=== PATIENT | female | born 1965 | race Two or more races ===

== ENCOUNTER → 2018-05-09 | Day surgery (SDC) | payer BC ==
[2018-05-06 15:08] VITALS: BMI 35.3
--- NOTE | 2018-05-08 19:08 | P.GSHP ---
History of Present Illness H&P Date: 05/09/18 CHIEF COMPLAINT: Cholecystitis HISTORY OF PRESENT ILLNESS: The patient is a 53-year-old female who presents with history of epigastric including right upper quadrant abdominal pain. She underwent diagnostic studies for her gallbladder. Separately her clinical picture was consistent with cholecystitis. Now she presents for surgical intervention. PAST MEDICAL HISTORY: Please see list PAST SURGICAL HISTORY: Please see list MEDICATIONS: Please see list ALLERGIES: Denies. SOCIAL HISTORY: No illicit drug use or recent tobacco use FAMILY HISTORY: Pertinent for gallbladder disease REVIEW OF ORGAN SYSTEMS: CONSTITUTIONAL: No reports of fevers or chills. HEENT: Denies any troubles with the vision or hearing. PHYSICAL EXAM: VITAL SIGNS: Afebrile vital signs stable GENERAL: Well-developed pleasant in no acute distress. HEENT: No scleral icterus. Extraocular movements grossly intact. Moist buccal mucosa. NECK: Supple without lymphadenopathy. CHEST: Unlabored respirations. Equal bilateral excursions. CARDIOVASCULAR: Regular rate regular rhythm rhythm. Distal 2+ pulses. ABDOMEN: Soft, nondistended. Tender along the epigastrium and right upper quadrant. MUSCULOSKELETAL: No clubbing, cyanosis, or edema. NEURO: Cranial nerves II to XII within normal limits. No focal or lateralizing signs. PSYCH: Alert and oriented to person, place and time. SKIN: Well-perfused good skin turgor. ASSESSMENT: 1. Epigastric and right upper quadrant abdominal pain 2. Chronic cholecystitis 3. Symptomatic gallstones. PLAN: 1. Will need a robotic cholecystectomy possible open. Benefits and risks were described. 2. Heparin for DVT prophylaxis 5000 units. 3. Antibiotic prophylaxis. 4. Will need compress and metabolic panel including CBC with history of elevated liver enzymes and cholecystitis Past Medical History Past Medical History: Cancer, GERD/Reflux, Hyperlipidemia, Sleep Apnea/CPAP/ BIPAP, Thyroid Disorder Additional Past Medical History / Comment(s): hx thyroid cancer, diet controlled diabetes, has cpap machine History of Any Multi-Drug Resistant Organisms: None Reported Past Surgical History: Bariatric Surgery, Bowel Resection, Hernia Repair, Hysterectomy Additional Past Surgical History / Comment(s): gastic sleeve, total thyroidectomy,hiatal hernia repair, vaginal repair, rectal vaginal fistula repair, laparoscopic surgery for endometriosis Past Anesthesia/Blood Transfusion Reactions: Postoperative Nausea & Vomiting ( PONV) Smoking Status: Former smoker - Past Family History Mother Family Medical History: No Reported History Medications and Allergies Home Medications Medication Instructions Recorded Confirmed Type Bisacodyl [Dulcolax] 5 mg PO DAILY 05/06/18 05/06/18 History Calcium Carbonate [Calcium] 600 mg PO DAILY 05/06/18 05/06/18 History Cetirizine HCl [Zyrtec] 10 mg PO DAILY 05/06/18 05/06/18 History Cevimeline HCl [Evoxac] 30 mg PO TID 05/06/18 05/06/18 History Cholecalciferol [Vitamin D3] 1,208 unit PO DAILY 05/06/18 05/06/18 History Hormone Replacement 1 dose PO BID 05/06/18 05/06/18 History Magnesium Citrate 300 mg PO DAILY 05/06/18 05/06/18 History Multivitamins, Thera [Multivitamin 1 tab PO DAILY 05/06/18 05/06/18 History (formulary)] Omeprazole [PriLOSEC] 40 mg PO DAILY 05/06/18 05/06/18 History Thyroid,Pork [[place] Thyroid] 60 mg PO SUTUWETHSA 05/06/18 05/06/18 History Thyroid,Pork [[place] Thyroid] 120 mg PO MOFR 05/06/18 05/06/18 History Allergies Allergy/AdvReac Type Severity Reaction Status Date / Time Iodine and Iodide Containing Allergy Rash/Hives Verified 05/06/18 14:50 Produc meperidine [From Demerol] Allergy Rash/Hives Verified 05/06/18 14:50 NSAIDS (Non-Steroidal Allergy Unknown Verified 05/06/18 14:50 Anti-Inflamma Sulfa (Sulfonamide Allergy Rash/Hives Verified 05/06/18 14:50 Antibiotics) surgical glue Allergy blisters Uncoded 05/06/18 14:50 and rash
[~2018-05-09] MED LIST: BUPIVACAIN-EPI 0.25%-1:200,000 30 ML VIAL SQ ONE; DEXAMETHASONE SOD PHOSPHATE 10 MG/ML 1 ML VIAL IV ONE; GLYCOPYRROLATE 0.2 MG/ML 2 ML VIAL ONE; HEPARIN SODIUM,PORCINE 5,000 UNIT/ML 1 ML VIAL SQ ONE; HEPARIN SODIUM,PORCINE 5,000 UNIT/ML 1 ML VIAL SQ STA; HYDROcodone/APAP 5-325MG 1 EACH TAB PO ONE; HYDROmorphone 1 MG/ML 1 ML SYRINGE IVP ONE; HYDROmorphone 2 MG/ML 1 ML SYRINGE IVP ONE; LACTATED RINGERS 1,000 ML IV ONE; LACTATED RINGERS 1,000 ML IV SCH; LIDOCAINE 1% 20 ML VIAL (10MG/ML) FOR IV START INTRADERMA ONE; LIDOCAINE 1% INJ 10MG/ML (20 ML MDV) ONE; MIDAZOLAM 2 MG/2 ML VIAL IV PRN; MIDAZOLAM 2 MG/2 ML VIAL ONE; NEOSTIGMINE 1 MG/ML 10 ML VIAL ONE; ONDANSETRON 4 MG/2 ML VIAL IVP ONE; PROPOFOL 10 MG/ML 20 ML VIAL IV ONE; ROCURONIUM BROMIDE 10 MG/ML 10 ML VIAL IV ONE; SCOPOLAMINE 1.5MG/72HR PATCH TRANSDERM ONE; SUCCINYLCHOLINE CHLORIDE 100 MG/5 ML SYR IV ONE; ceFAZolin IN SWFI 2 GM/20 ML SYRINGE IVP ONE; fentaNYL (PF) 50 MCG/ML 2 ML AMP IV PRN; fentaNYL (PF) 50 MCG/ML 2 ML AMP ONE
[2018-05-09 07:43] LABS: Glucose,Whole Blood 93 mg/dL (75-99)
[2018-05-09 07:51] LABS: Basophils % (A) 1 %; Eosinophils # (A) 0.1 k/uL (0-0.7); Eosinophils % (A) 2 %; HCT 46.6 % (34.0-46.0); HGB 14.7 gm/dL (11.4-16.0); Lymphocytes # (A) 1.1 k/uL (1.0-4.8); Lymphocytes % (A) 27 %; MCH 28.7 pg (25.0-35.0); MCHC 31.7 g/dL (31.0-37.0); MCV 90.6 fL (80.0-100.0); Mean Platelet Volume 6.5; Monocytes # (A) 0.4 k/uL (0-1.0); Monocytes % (A) 10 %; Neutrophils # (A) 2.4 k/uL (1.3-7.7); Neutrophils % (A) 59 %; Platelet Count 226 k/uL (150-450); RBC 5.14 m/uL (3.80-5.40); WBC 4.2 k/uL (3.8-10.6)
[2018-05-09 07:59] LABS: Albumin 4.1 g/dL (3.5-5.0); Anion Gap 9 mmol/L; Calcium 9.4 mg/dL (8.4-10.2); Carbon Dioxide 26 mmol/L (22-30); Chloride 107 mmol/L (98-107); Glucose 96 mg/dL (74-99); Sodium 142 mmol/L (137-145); Total Bilirubin 0.6 mg/dL (0.2-1.3)
[2018-05-09 08:09] LABS: AST 26 U/L (14-36); Blood Urea Nitrogen 15 mg/dL (7-17); Potassium 4.1 mmol/L (3.5-5.1)
[2018-05-09 08:10] LABS: ALT 37 U/L (9-52); Alkaline Phosphatase 73 U/L (38-126)
--- NOTE | 2018-05-09 10:19 | P.OP ---
Date of Procedure: 05/09/18 Description of Procedure: SURGEON: SHASHI HERNANDEZ MD PREOPERATIVE DIAGNOSES: 1. Symptomatic gallstones 2. Chronic cholecystitis 3. Morbid obesity due to excess calories, BMI 35.4 4. Sleep apnea. 5. Non-insulin dependent diabetes 6. Status post gastric sleeve gastrectomy 7. Gastroesophageal reflux disease POSTOPERATIVE DIAGNOSES: 1. Symptomatic gallstones 2. Chronic cholecystitis 3. Morbid obesity due to excess calories, BMI 35.4 4. Sleep apnea. 5. Non-insulin dependent diabetes 6. Status post gastric sleeve gastrectomy 7. Gastroesophageal reflux disease 8. Fatty liver disease OPERATION: Robotic-assisted da Matthew Xi laparoscopic cholecystectomy, multiport ESTIMATED BLOOD LOSS: 5 mL. SPECIMENS REMOVED: Gallbladder. COMPLICATIONS: None. OPERATIVE FINDINGS: 1. Chronic cholecystitis 2. Midline peritoneal adhesions undisturbed INDICATIONS: The patient is a 53-year-old female who presents with cholelcystitis. Surgical intervention with a laparoscopic cholecystectomy was described at length including injury to the biliary tree, bleeding, infection, need for further surgery. Informed consent was obtained. Robotic assisted laparoscopic approach was described. Benefits and risks of the procedure including but not limited to bleeding, infection, injury to the biliary tree was described. Informed consent was obtained. DESCRIPTION OF PROCEDURE: Patient was brought to the operating room, placed in supine position. After general induction, the abdomen had been prepped and draped in standard sterile fashion. The robotic da Matthew XI system was primed. After a timeout protocol was performed, the patient had been prepped and draped in standard sterile fashion. A 5 mm 0 degrees laparoscopic trocar entry was performed along the left upper quadrant. The abdomen insufflated to 15 mmHg pressure which she tolerated well. Diagnostic laparoscopy demonstrated no injury to bowel viscera or mesentery. The liver surface was unremarkable. Next, two 8 mm robotic ports were placed along the right upper abdomen. The 0- degree camera 8-mm port was maintained along the epigastrium. Another 8 mm port was placed along the left upper abdominal wall after exchanging the 5 mm port. Please note that the ports were placed at least 10 to 15 cm away from the target anatomy of the gallbladder. The robot was docked along the left lateral abdomen. The patient was repositioned in reverse Trendelenburg position. Using a grasper for arm 3, a grasper for arm 4, including hook cautery for arm 1 , the robotic system was docked and primed as described. Instruments were interchanged by the assistant strength coach including hook cautery, Bovie cautery and clip appliers. I had sat at the console. Adhesions were identified along the infundibulum of the gallbladder and addressed using hook cautery. The gallbladder fundus was retracted over the dome of the liver. Initial attention was brought to the infundibulum which was gently retracted in the inferior lateral approach. Using a grasper, the cystic duct including the cystic artery was carefully skeletonized. Large PLASTIC clips were used throughout the entire case. Using a clip hand outside cutter 2 clips were placed proximally, and 1 clip was placed distally along the cystic duct and then cauterized with the cautery. Again care was taken to avoid any injury to the biliary tree as the common bile duct was clearly visualized during this portion of dissection. Next, the cystic artery was similarly clipped and cauterized. Electro-Bovie cautery was used to remove the gallbladder from the hepatic fossa. Hemostasis was checked and found to be adequate. The robot was undocked. I re-scrubbed into the case. Using a 10 mm Endo Catch bag via the left upper quadrant incision, the specimen was removed from the abdominal cavity. All pneumoperitoneum instruments were evacuated from the abdominal cavity. The incisions were reapproximated using 4-0 Monocryl in an interrupted subcuticular fashion. Fascial defects were less than 8 mm in size. Please note along the trocar sites, local anesthetic was placed as a field block prior to insertion of all instruments. Liquid glue was applied to the skin. At the end of the procedure needle, sponge, and instrument count had been verified correct by the surgical scheduler. The patient was transferred to postanesthesia care unit in stable condition. Intraoperative films were shared with the patient's family who were very pleased with the level of care. Console time 17 minutes Plan - Discharge Summary New Discharge Prescriptions: No Action Cholecalciferol [Vitamin D3] 1,208 unit PO DAILY Magnesium Citrate 300 mg PO DAILY Calcium Carbonate [Calcium] 600 mg PO DAILY Multivitamins, Thera [Multivitamin (formulary)] 1 tab PO DAILY Thyroid,Pork [[place] Thyroid] 60 mg PO SUTUWETHSA Omeprazole [PriLOSEC] 40 mg PO DAILY Cetirizine HCl [Zyrtec] 10 mg PO DAILY Bisacodyl [Dulcolax] 5 mg PO DAILY Thyroid,Pork [[place] Thyroid] 120 mg PO MOFR Cevimeline HCl [Evoxac] 30 mg PO TID Hormone Replacement 1 dose PO BID Discharge Medication List Bisacodyl [Dulcolax] 5 mg PO DAILY 05/06/18 [History] Calcium Carbonate [Calcium] 600 mg PO DAILY 05/06/18 [History] Cetirizine HCl [Zyrtec] 10 mg PO DAILY 05/06/18 [History] Cevimeline HCl [Evoxac] 30 mg PO TID 05/06/18 [History] Cholecalciferol [Vitamin D3] 1,208 unit PO DAILY 05/06/18 [History] Hormone Replacement 1 dose PO BID 05/06/18 [History] Magnesium Citrate 300 mg PO DAILY 05/06/18 [History] Multivitamins, Thera [Multivitamin (formulary)] 1 tab PO DAILY 05/06/18 [History ] Omeprazole [PriLOSEC] 40 mg PO DAILY 05/06/18 [History] Thyroid,Pork [[place] Thyroid] 60 mg PO SUTUWETHSA 05/06/18 [History] Thyroid,Pork [[place] Thyroid] 120 mg PO MOFR 05/06/18 [History]
[2018-05-09 10:30] VITALS: TEMP 98.4
[2018-05-09 10:32] VITALS: RESP 16
[2018-05-09 12:10] VITALS: BP 134/72; PULSE 62
== END | disposition home or self-care (01) ==
LOC: OR 07:02 → EDSEX 13:30
PROVIDERS: ATTEND Surgery Plastic and Reconstructive Surgery
DX: K81.1 Chronic cholecystitis (principal); K66.0 Peritoneal adhesions (postprocedural) (postinfection); K21.9 Gastro-esophageal reflux disease without esophagitis; E78.5 Hyperlipidemia, unspecified; G47.33 Obstructive sleep apnea (adult) (pediatric); Z99.89 Dependence on other enabling machines and devices; K76.0 Fatty (change of) liver, not elsewhere classified; E07.9 Disorder of thyroid, unspecified; E11.9 Type 2 diabetes mellitus without complications; E66.01 Morbid (severe) obesity due to excess calories; Z68.35 Body mass index [BMI] 35.0-35.9, adult; Z98.84 Bariatric surgery status; E89.0 Postprocedural hypothyroidism; Z87.891 Personal history of nicotine dependence; Z79.890 Hormone replacement therapy; Z79.899 Other long term (current) drug therapy; Z88.6 Allergy status to analgesic agent; Z88.5 Allergy status to narcotic agent; Z88.2 Allergy status to sulfonamides; Z91.048 Other nonmedicinal substance allergy status; Z91.09 Other allergy status, other than to drugs and biological substances
CPT/HCPCS: 47562; S2900; 80053; 85025; 88304

== ENCOUNTER → 2020-03-17 | Outpatient (CLI) | payer BC ==
[2020-03-17 08:49] LABS: HGB 13.8 gm/dL (11.4-16.0); MCH 30.2 pg (25.0-35.0); MCHC 32.1 g/dL (31.0-37.0); MCV 94.1 fL (80.0-100.0); Mean Platelet Volume 6.5; Platelet Count 269 k/uL (150-450); RBC 4.57 m/uL (3.80-5.40); RDW 13.3 % (11.5-15.5); WBC 5.1 k/uL (3.8-10.6)
[2020-03-17 15:13] LABS: Hemoglobin A1C 5.8 % (4.0-6.0)
[2020-03-17 16:56] LABS: % Iron Saturation 19.53 (12.00-45.00); Albumin 4.2 g/dL (3.80-4.90); Albumin/Globulin Ratio 1.91 (1.60-3.17); Anion Gap 5.8 mmol/L (4.00-12.00); BUN/Creat Ratio 23.33 Ratio (12.00-20.00); Calcium 9.1 mg/dL (8.7-10.3); Carbon Dioxide 25.2 mmol/L (21.6-31.8); Chol/HDL Ratio 3.25; Globulin 2.2 g/dL (1.6-3.3); LDL Cholesterol,Calculated 122.8 mg/dL (0.0-131.0); Non-African American GFR(CKD) 72.5 (60.0-200.0); Phosphorus 3.1 mg/dL (2.4-5.1); Potassium 3.7 mmol/L (3.5-5.5); Total Bilirubin 0.4 mg/dL (0.3-1.2); Total Protein 6.4 g/dL (6.2-8.2); VLDL Calculation 21.2 mg/dL (5.00-40.00)
[2020-03-17 17:03] LABS: Ferritin 21.5 ng/mL (10.0-291.0)
[2020-03-17 17:15] LABS: Folate, Serum 19.5 ng/mL
[2020-03-17 17:37] LABS: INR 0.93 (0.90-1.11); Partial Thromboplastin Time 27.6 sec (24.7-29.9)
[2020-03-18 13:24] LABS: Zinc, Serum 88 ug/dL (60-130)
[2020-03-19 06:52] LABS: Vitamin A 76 ug/dL (38-106)
[2020-03-19 07:18] LABS: Vit B1(Thiamine) 78 ug/L (38-122)
[2020-03-21 04:12] LABS: Selenium 187 mcg/L (63-160)
== END | disposition home or self-care (01) ==
LOC: LABWHC1 07:52
PROVIDERS: ATTEND Surgery Plastic and Reconstructive Surgery
DX: E21.1 Secondary hyperparathyroidism, not elsewhere classified (principal); D50.8 Other iron deficiency anemias; K90.89 Other intestinal malabsorption; E55.9 Vitamin D deficiency, unspecified; K74.1 Hepatic sclerosis; N19 Unspecified kidney failure; K50.90 Crohn's disease, unspecified, without complications
CPT/HCPCS: 36415; 80053; 80061; 82306; 82525; 82607; 82728; 82746; 83036; 83540; 83550; 83735; 83970; 84100; 84134; 84255; 84425; 84443; 84590; 84630; 85027; 85610; 85730

== ENCOUNTER → 2020-03-18 | Outpatient (CLI) | payer BC ==
--- NOTE | 2020-03-18 08:46 | FL ---
EXAMINATION TYPE: FL barium swallow DATE OF EXAM: 03/18/2020 LIMITED UGI: CLINICAL HISTORY: History of gastric sleeve surgery 2 years ago with increasing epigastric pain and burning sensation for 3 months. TECHNIQUE: Limited esophagram is performed utilizing 20 ounces of thin liquid barium. A total of 0.2 5 minutes of fluoroscopic time was utilized during procedure. COMPARISON: None. FINDINGS: The patient swallowed contrast without difficulty or delay. Esophageal peristalsis and mo tility are within normal limits. There is good flow of contrast along the diaphragmatic hiatus into proximal stomach and subsequent flow into gastric sleeve. No fixed recurrent hernia. Small sliding-ty pe hiatal hernia is present noted towards end of study. [id number] gastroesophageal reflux into the distal one third of esophagus noted during performance of study. Gastric sleeve intact. Contrast flows through distal anastomosis. IMPRESSION: Small sliding-type hiatal hernia. No fixed hernia. Mild to moderate distal gastroesophage al reflux noted. Intact gastric sleeve.
== END | disposition home or self-care (01) ==
LOC: RADFLMAIN 07:31
PROVIDERS: ATTEND Surgery Plastic and Reconstructive Surgery
DX: K44.9 Diaphragmatic hernia without obstruction or gangrene (principal); K21.9 Gastro-esophageal reflux disease without esophagitis
CPT/HCPCS: 74220

== ENCOUNTER 2020-03-23 14:34 | Emergency (ER) | payer BC ==
--- NOTE | 2020-03-23 15:45 | ED ---
General Adult HPI - General Chief complaint: Shortness of Breath Stated complaint: Aspirated last night Time Seen by Provider: 03/23/20 15:08 Source: patient Mode of arrival: ambulatory Limitations: no limitations - History of Present Illness Initial comments: Patient is a 55-year-old female with history of gastric sleeve, GERD, presenting to the emergency Department with complaints of some mild shortness of breath. Patient states she has been dealing with GERD for the past couple weeks. She had a follow-up with her surgeon, Dr. Umana, for a two-year follow-up. She did start a shunt on omeprazole, which she has been taking for one week now. Patient states last night she was feeling a little bit of indigestion, burning. She states she laid down, per her CPAP on and was almost asleep when she had a vomiting episode. Patient states she was not able to get her CPAP machine off fast enough and feared she may have aspirated some of the vomit. She states throughout today she's had a mild cough, tickle in her throat. She denies any chest pain, she states she still feels some burning in her epigastric area which is normal for her. She feels like she is mildly short of breath when she is walking around. She denies ever having blood clot. She has no further complaints at this time. - Related Data Home Medications Medication Instructions Recorded Confirmed Calcium Carbonate [Calcium] 600 mg PO DAILY 05/06/18 05/09/18 Cetirizine HCl [Zyrtec] 10 mg PO DAILY 05/06/18 05/09/18 Cevimeline HCl [Evoxac] 30 mg PO TID 05/06/18 05/09/18 Cholecalciferol [Vitamin D3] 1,208 unit PO DAILY 05/06/18 05/09/18 Hormone Replacement 1 dose PO BID 05/06/18 05/09/18 Magnesium Citrate 300 mg PO DAILY 05/06/18 05/09/18 Multivitamins, Thera [Multivitamin 1 tab PO DAILY 05/06/18 05/09/18 (formulary)] Omeprazole [PriLOSEC] 40 mg PO DAILY 05/06/18 05/09/18 Thyroid,Pork [[place] Thyroid] 60 mg PO SUTUWETHSA 05/06/18 05/09/18 Thyroid,Pork [[place] Thyroid] 120 mg PO MOFR 05/06/18 05/09/18 bisacodyL [Dulcolax] 5 mg PO DAILY 05/06/18 05/09/18 Previous Rx's Medication Instructions Recorded HYDROcodone/APAP 5-325MG [[place] 1 tab PO Q6HR PRN 3 Days #12 tab 05/09/18 5-325] Allergies Allergy/AdvReac Type Severity Reaction Status Date / Time Iodine and Iodide Containing Allergy Rash/Hives Verified 03/23/20 15:06 Produc meperidine [From Demerol] Allergy Rash/Hives Verified 03/23/20 15:06 NSAIDS (Non-Steroidal Allergy Unknown Verified 03/23/20 15:06 Anti-Inflamma Sulfa (Sulfonamide Allergy Rash/Hives Verified 03/23/20 15:06 Antibiotics) surgical glue Allergy blisters Uncoded 03/23/20 15:06 and rash Review of Systems ROS Statement: Those systems with pertinent positive or pertinent negative responses have been documented in the HPI. ROS Other: All systems not noted in ROS Statement are negative. Past Medical History Past Medical History: Cancer, GERD/Reflux, Hyperlipidemia, Sleep Apnea/CPAP/BIPAP, Thyroid Disorder Additional Past Medical History / Comment(s): hx thyroid cancer, diet controlled diabetes, has cpap machine History of Any Multi-Drug Resistant Organisms: None Reported Past Surgical History: Bariatric Surgery, Bowel Resection, Hernia Repair, Hysterectomy Additional Past Surgical History / Comment(s): gastic sleeve, total thyroidectomy,hiatal hernia repair, vaginal repair, rectal vaginal fistula repair, laparoscopic surgery for endometriosis Past Anesthesia/Blood Transfusion Reactions: Postoperative Nausea & Vomiting (PONV) Past Psychological History: No Psychological Hx Reported Smoking Status: Never smoker Past Alcohol Use History: Rare Past Drug Use History: None Reported - Past Family History Mother Family Medical History: No Reported History General Exam - General Exam Comments Initial Comments: GENERAL: Patient is well-developed and well-nourished. Patient is nontoxic and in no acute distress. HEAD: Atraumatic, normocephalic. EYES: Pupils equal round and reactive to light, extraocular movements intact, sclera anicteric, conjunctiva are normal. Eyelids were unremarkable. ENT: TMs normal, nares patent, oropharynx clear without exudates. Moist mucous me mbranes. NECK: Normal range of motion, supple without lymphadenopathy or JVD. LUNGS: Unlabored respirations. Breath sounds clear to auscultation bilaterally and equal. No wheezes rales or rhonchi. HEART: Regular rate and rhythm without murmurs, rubs or gallops. ABDOMEN: Soft, nontender, normoactive bowel sounds. No guarding, no rebound. No masses appreciated. : Deferred MUSCULOSKELETAL: Normal extremities with adequate strength and normal range of motion, no pitting or edema. No clubbing or cyanosis. NEUROLOGICAL: Patient is alert and oriented x 3. Motor and sensory are also intact. Cranial nerves II through XII grossly intact. Normal speech, normal gait. Symmetrical smile. PSYCH: Normal mood, normal affect. SKIN: Warm, Dry, normal turgor, no rashes or lesions noted. Limitations: no limitations Course Vital Signs 03/23/20 03/23/20 15:02 16:20 Temperature 98.3 F 98.6 F Pulse Rate 106 H 85 Respiratory 22 18 Rate Blood Pressure 127/84 124/82 O2 Sat by Pulse 100 98 Oximetry Medical Decision Making - Medical Decision Making Patient is a 55-year-old female here with concerns of aspiration after she had a vomiting episode last night with her CPAP machine still on. Her vitals are stable here. Chest x-ray reveals no acute process here. The rest of exam is unremarkable. I discussed the patient to follow up with her PCP. She will continue with her omeprazole as needed for the GERD. She is in agreement with t his plan of care. Case discussed with Dr. Alonso. Disposition Clinical Impression: Cough, GERD (gastroesophageal reflux disease) Disposition: HOME SELF-CARE Condition: Stable Instructions (If sedation given, give patient instructions): Gastroesophageal Reflux Disease (ED) Additional Instructions: Please return to the Emergency Department if symptoms worsen or any other concerns. Follow-up with PCP. Is patient prescribed a controlled substance at d/c from ED?: No Referrals: Chantelle Navarrete DO [Primary Care Provider] - 1-2 days
--- NOTE | 2020-03-23 15:49 | XR ---
EXAMINATION TYPE: XR chest 2V DATE OF EXAM: 03/23/2020 CLINICAL HISTORY: Cough. Concern for aspiration. TECHNIQUE: Frontal and lateral views of the chest are obtained. COMPARISON: None FINDINGS: The cardiomediastinal silhouette is within normal limits for size. Pulmonary vasculature i s normal. There is no focal air space opacity, pleural effusion, or pneumothorax seen. The osseous st ructures are intact. IMPRESSION: No acute cardiopulmonary process.
[2020-03-23 16:21] VITALS: BP 124/82; PULSE 85; RESP 18; TEMP 98.6
== END 2020-03-23 16:24 | disposition home or self-care (01) ==
LOC: EC 14:34
DX: K21.9 Gastro-esophageal reflux disease without esophagitis (principal); R05 Cough; R06.02 Shortness of breath; G47.30 Sleep apnea, unspecified; E11.9 Type 2 diabetes mellitus without complications; E89.0 Postprocedural hypothyroidism; Z79.899 Other long term (current) drug therapy; Z79.890 Hormone replacement therapy; Z88.2 Allergy status to sulfonamides; Z88.6 Allergy status to analgesic agent; Z91.041 Radiographic dye allergy status; Z91.048 Other nonmedicinal substance allergy status; Z85.850 Personal history of malignant neoplasm of thyroid
CPT/HCPCS: 71046; 99284

== ENCOUNTER 2020-10-16 17:22 | Emergency (ER) | payer BC ==
--- NOTE | 2020-10-16 17:49 | ED ---
General Adult HPI - General Chief complaint: Arrhythmia/Palpitations Stated complaint: palpitations Time Seen by Provider: 10/16/20 17:32 Source: patient Mode of arrival: ambulatory Limitations: no limitations - History of Present Illness Initial comments: Patient presents to the ED with her for evaluation. Patient states that she has been having episodes of rapid heart palpitations with associated dyspnea and "GERD" for the past 6 months or so. Patient states that her episodes have become more frequent recently. Patient states that she last had symptoms about 6 hours ago. Patient denies having any symptoms at all currently. Patient d escribes her GERD as a "fullness" in her epigastrium, and she states that she takes omeprazole for management of her GERD. Patient denies trauma or injury, fever or chills, headache, focal numbness/weakness/neuro deficit, neck/arm/jaw/back pain, chest pain, pleuritic pain, cough or cold symptoms, d izziness or syncope, abdominal pain, nausea/vomiting/diarrhea, bloody or melanotic stool, dysuria or urinary symptoms, leg or calf swelling or pain, or any other symptoms or complaints. Patient denies alcohol or drug abuse. Patient denies any recent changes in her diet. Patient states that she did have some of her hormone doses (estrogen and testosterone) changed yesterday. - Related Data Home Medications Medication Instructions Recorded Confirmed Cetirizine HCl [Zyrtec] 10 mg PO DAILY 05/06/18 10/16/20 Cevimeline HCl [Evoxac] 30 mg PO TID 05/06/18 10/16/20 Cholecalciferol [Vitamin D3] 1,000 unit PO DAILY 05/06/18 10/16/20 Multivitamins, Thera [Multivitamin 1 tab PO DAILY 05/06/18 10/16/20 (formulary)] Cyanocobalamin (Vitamin B-12) 5,000 mcg PO DAILY 04/07/20 10/16/20 [Vitamin B-12] Estradiol [Yuvafem] 10 mg VAGINAL MOWEFR 04/07/20 10/16/20 Lisdexamfetamine Dimesylate 70 mg PO DAILY 04/07/20 10/16/20 [Vyvanse] Black Elderberry 2,000mg 2,000 mg PO DAILY 10/16/20 10/16/20 Calcium/Magnesium/Vit D3 Complex 1 cap PO DAILY 10/16/20 10/16/20 Chromium Picolinate 200 mcg PO DAILY 10/16/20 10/16/20 Cranberry W/Vit C 1 tab PO DAILY 10/16/20 10/16/20 Estrogen/Testosterone Cream 1 dose TOPICAL DIRECTED 10/16/20 10/16/20 Inflamed (Curcumin Blend) 1 cap PO DAILY 10/16/20 10/16/20 L.acidoph,Paracasei, B.lactis 1 cap PO DAILY 10/16/20 10/16/20 [Probiotic] Magnesium Citrate 225mg/5ml 225 mg PO DAILY 10/16/20 10/16/20 Natural Progester/Dhea 125/15 1 cap PO DAILY 10/16/20 10/16/20 Psyllium Husk [Metamucil] 0.4 gm PO DAILY 10/16/20 10/16/20 Pure [place] Hp-375 Epa/125 Dha 1 cap PO DAILY 10/16/20 10/16/20 Thyroid,Pork [Turin Thyroid] 90 mg PO DAILY 10/16/20 10/16/20 Topiramate [Topamax] 50 mg PO BID 10/16/20 10/16/20 Vitamin A 3,000 Units 3,000 units PO DAILY 10/16/20 10/16/20 Zinc Citrate 30mg 30 mg PO DAILY 10/16/20 10/16/20 bisacodyL [Dulcolax] 5 mg PO DAILY 10/16/20 10/16/20 Previous Rx's Medication Instructions Recorded Omeprazole [PriLOSEC] 40 mg PO DAILY #90 cap 03/31/20 Allergies Allergy/AdvReac Type Severity Reaction Status Date / Time Iodine and Iodide Containing Allergy Rash/Hives Verified 10/16/20 19:05 Produc meperidine [From Demerol] Allergy Rash/Hives Verified 10/16/20 19:05 NSAIDS (Non-Steroidal Allergy Unknown Verified 10/16/20 19:05 Anti-Inflamma Sulfa (Sulfonamide Allergy Rash/Hives Verified 10/16/20 19:05 Antibiotics) surgical glue Allergy blisters Uncoded 10/16/20 17:29 and rash Review of Systems ROS Statement: Those systems with pertinent positive or pertinent negative responses have been documented in the HPI. ROS Other: All systems not noted in ROS Statement are negative. Past Medical History Past Medical History: Cancer, GERD/Reflux, Hyperlipidemia, Sleep Apnea/CPAP/BIPAP, Thyroid Disorder Additional Past Medical History / Comment(s): hx thyroid cancer, diet controlled diabetes, has cpap machine History of Any Multi-Drug Resistant Organisms: None Reported Past Surgical History: Bariatric Surgery, Bowel Resection, Hernia Repair, Hysterectomy Additional Past Surgical History / Comment(s): gastic sleeve, total thyroidectomy,hiatal hernia repair, vaginal repair, rectal vaginal fistula repair, laparoscopic surgery for endometriosis Past Anesthesia/Blood Transfusion Reactions: Postoperative Nausea & Vomiting (PONV) Past Psychological History: No Psychological Hx Reported Smoking Status: Never smoker Past Alcohol Use History: Rare Past Drug Use History: None Reported - Past Family History Mother Family Medical History: No Reported History General Exam Limitations: no limitations General appearance: alert, in no apparent distress Head exam: Present: atraumatic, normocephalic Eye exam: Present: normal appearance, PERRL, EOMI ENT exam: Present: mucous membranes moist Neck exam: Present: other (Trachea is in midline) Respiratory exam: Present: normal lung sounds bilaterally. Absent: respiratory distress, wheezes, rales, rhonchi, stridor Cardiovascular Exam: Present: regular rate, normal rhythm, normal heart sounds, other (Normal radial pulses bilaterally) GI/Abdominal exam: Present: soft. Absent: distended, tenderness, guarding Extremities exam: Present: other (Negative Homans sign bilaterally). Absent: tenderness, pedal edema, calf tenderness Neurological exam: Present: alert, oriented X3. Absent: motor sensory deficit Psychiatric exam: Present: normal affect, normal mood Skin exam: Present: warm, dry, intact, normal color Course Vital Signs 10/16/20 10/16/20 10/16/20 17:27 17:50 18:00 Temperature 98.2 F Pulse Rate 101 H 79 Pulse Rate [ 101 H [employer] ] Respiratory 16 14 Rate Blood Pressure 155/90 153/92 O2 Sat by Pulse 100 100 Oximetry 10/16/20 18:30 Temperature Pulse Rate 79 Pulse Rate [ [employer] ] Respiratory 19 Rate Blood Pressure 125/77 O2 Sat by Pulse 100 Oximetry - Reevaluation(s) Reevaluation #1: 10/16/20 19:36 Patient continues to deny having any palpitations or symptoms while in the ED. Patient remains alert and breathing comfortably with a normal room air oxygen saturation. Patient remains in a normal sinus rhythm on the pvc monitor. Patient and are aware the patient's test results, and patient feels comfortable going home with her at this time. Patient was counseled about palpitations, and she was clearly explained return and follow-up instructions. Patient was instructed to follow up closely with her primary care provider. EKG Findings - EKG Comments: EKG Findings:: Normal sinus rhythm, ventricular rate of 95 bpm, no ectopy, normal DE and QRS intervals, normal QT interval, normal axis, no ST or T-wave abnormality Medical Decision Making - Medical Decision Making Patient's ED workup (EKG, chest x-ray and labs) is fairly unremarkable. Patient has been in normal sinus rhythm on the pvc monitor while in the ED. Patient's allegedly and troponin are within normal limits. Patient reports having symptoms intermittently for the past 6 months or so. I do not suspect an emergent medical condition. Patient was instructed to, and agrees to, follow up closely with her primary care provider for further evaluation. Will discharge patient home with her at this time. - Lab Data Result diagrams: 10/16/20 18:07 10/16/20 18:07 Lab Results 10/16/20 10/16/20 10/16/20 Range/Units 18:07 18:07 18:07 WBC 6.1 (3.8-10.6) k/uL RBC 4.75 (3.80-5.40) m/uL Hgb 14.0 (11.4-16.0) gm/dL Hct 42.5 (34.0-46.0) % MCV 89.5 (80.0-100.0) fL MCH 29.6 (25.0-35.0) pg MCHC 33.1 (31.0-37.0) g/dL RDW 13.4 (11.5-15.5) % Plt Count 283 (150-450) k/uL MPV 6.4 Neutrophils % 54 % Lymphocytes % 35 % Monocytes % 7 % Eosinophils % 1 % Basophils % 1 % Neutrophils # 3.3 (1.3-7.7) k/uL Lymphocytes # 2.2 (1.0-4.8) k/uL Monocytes # 0.4 (0-1.0) k/uL Eosinophils # 0.1 (0-0.7) k/uL Basophils # 0.1 (0-0.2) k/uL PT 10.0 (9.0-12.0) sec INR 0.9 (<1.2) APTT 23.3 (22.0-30.0) sec Sodium 140 (137-145) mmol/L Potassium 4.1 (3.5-5.1) mmol/L Chloride 107 (98-107) mmol/L Carbon Dioxide 22 (22-30) mmol/L Anion Gap 11 mmol/L BUN 18 H (7-17) mg/dL Creatinine 0.95 (0.52-1.04) mg/dL Est GFR (CKD-EPI)AfAm 79 (>60 ml/min/1.73 sqM) Est GFR (CKD-EPI)NonAf 69 (>60 ml/min/1.73 sqM) Glucose 86 (74-99) mg/dL Calcium 10.0 (8.4-10.2) mg/dL Magnesium 2.0 (1.6-2.3) mg/dL Total Bilirubin 0.4 (0.2-1.3) mg/dL AST 27 (14-36) U/L ALT 21 (4-34) U/L Alkaline Phosphatase 105 (38-126) U/L Troponin I (0.000-0.034) ng/mL NT-Pro-B Natriuret Pep pg/mL Total Protein 7.5 (6.3-8.2) g/dL Albumin 4.4 (3.5-5.0) g/dL Lipase 473 H (23-300) U/L TSH 0.016 L (0.465-4.680) mIU/L Free T4 (0.78-2.19) ng/dL Free T3 pg/mL (2.8-5.3) pg/ml Urine Color Urine Appearance (Clear) Urine pH (5.0-8.0) Ur Specific [place] (1.001-1.035) Urine Protein (Negative) Urine Glucose (UA) (Negative) Urine Ketones (Negative) Urine Blood (Negative) Urine Nitrite (Negative) Urine Bilirubin (Negative) Urine Urobilinogen (<2.0) mg/dL Ur Leukocyte Esterase (Negative) Urine RBC (0-5) /hpf Urine WBC (0-5) /hpf Ur Squamous Epith Cells (0-4) /hpf Urine Bacteria (None) /hpf Urine Mucus (None) /hpf Urine Opiates Screen (NotDetected) Ur Oxycodone Screen (NotDetected) Urine Methadone Screen (NotDetected) Ur Propoxyphene Screen (NotDetected) Ur Barbiturates Screen (NotDetected) U Tricyclic Antidepress (NotDetected) Ur Phencyclidine Scrn (NotDetected) Ur Amphetamines Screen (NotDetected) U Methamphetamines Scrn (NotDetected) U Benzodiazepines Scrn (NotDetected) Urine Cocaine Screen (NotDetected) U Marijuana (THC) Screen (NotDetected) 10/16/20 10/16/20 10/16/20 Range/Units 18:07 18:07 18:07 WBC (3.8-10.6) k/uL RBC (3.80-5.40) m/uL Hgb (11.4-16.0) gm/dL Hct (34.0-46.0) % MCV (80.0-100.0) fL MCH (25.0-35.0) pg MCHC (31.0-37.0) g/dL RDW (11.5-15.5) % Plt Count (150-450) k/uL MPV Neutrophils % % Lymphocytes % % Monocytes % % Eosinophils % % Basophils % % Neutrophils # (1.3-7.7) k/uL Lymphocytes # (1.0-4.8) k/uL Monocytes # (0-1.0) k/uL Eosinophils # (0-0.7) k/uL Basophils # (0-0.2) k/uL PT (9.0-12.0) sec INR (<1.2) APTT (22.0-30.0) sec Sodium (137-145) mmol/L Potassium (3.5-5.1) mmol/L Chloride (98-107) mmol/L Carbon Dioxide (22-30) mmol/L Anion Gap mmol/L BUN (7-17) mg/dL Creatinine (0.52-1.04) mg/dL Est GFR (CKD-EPI)AfAm (>60 ml/min/1.73 sqM) Est GFR (CKD-EPI)NonAf (>60 ml/min/1.73 sqM) Glucose (74-99) mg/dL Calcium (8.4-10.2) mg/dL Magnesium (1.6-2.3) mg/dL Total Bilirubin (0.2-1.3) mg/dL AST (14-36) U/L ALT (4-34) U/L Alkaline Phosphatase (38-126) U/L Troponin I <0.012 (0.000-0.034) ng/mL NT-Pro-B Natriuret Pep 20 pg/mL Total Protein (6.3-8.2) g/dL Albumin (3.5-5.0) g/dL Lipase (23-300) U/L TSH (0.465-4.680) mIU/L Free T4 0.73 L (0.78-2.19) ng/dL Free T3 pg/mL 4.3 (2.8-5.3) pg/ml Urine Color Urine Appearance (Clear) Urine pH (5.0-8.0) Ur Specific [place] (1.001-1.035) Urine Protein (Negative) Urine Glucose (UA) (Negative) Urine Ketones (Negative) Urine Blood (Negative) Urine Nitrite (Negative) Urine Bilirubin (Negative) Urine Urobilinogen (<2.0) mg/dL Ur Leukocyte Esterase (Negative) Urine RBC (0-5) /hpf Urine WBC (0-5) /hpf Ur Squamous Epith Cells (0-4) /hpf Urine Bacteria (None) /hpf Urine Mucus (None) /hpf Urine Opiates Screen (NotDetected) Ur Oxycodone Screen (NotDetected) Urine Methadone Screen (NotDetected) Ur Propoxyphene Screen (NotDetected) Ur Barbiturates Screen (NotDetected) U Tricyclic Antidepress (NotDetected) Ur Phencyclidine Scrn (NotDetected) Ur Amphetamines Screen (NotDetected) U Methamphetamines Scrn (NotDetected) U Benzodiazepines Scrn (NotDetected) Urine Cocaine Screen (NotDetected) U Marijuana (THC) Screen (NotDetected) 10/16/20 Range/Units 18:57 WBC (3.8-10.6) k/uL RBC (3.80-5.40) m/uL Hgb (11.4-16.0) gm/dL Hct (34.0-46.0) % MCV (80.0-100.0) fL MCH (25.0-35.0) pg MCHC (31.0-37.0) g/dL RDW (11.5-15.5) % Plt Count (150-450) k/uL MPV Neutrophils % % Lymphocytes % % Monocytes % % Eosinophils % % Basophils % % Neutrophils # (1.3-7.7) k/uL Lymphocytes # (1.0-4.8) k/uL Monocytes # (0-1.0) k/uL Eosinophils # (0-0.7) k/uL Basophils # (0-0.2) k/uL PT (9.0-12.0) sec INR (<1.2) APTT (22.0-30.0) sec Sodium (137-145) mmol/L Potassium (3.5-5.1) mmol/L Chloride (98-107) mmol/L Carbon Dioxide (22-30) mmol/L Anion Gap mmol/L BUN (7-17) mg/dL Creatinine (0.52-1.04) mg/dL Est GFR (CKD-EPI)AfAm (>60 ml/min/1.73 sqM) Est GFR (CKD-EPI)NonAf (>60 ml/min/1.73 sqM) Glucose (74-99) mg/dL Calcium (8.4-10.2) mg/dL Magnesium (1.6-2.3) mg/dL Total Bilirubin (0.2-1.3) mg/dL AST (14-36) U/L ALT (4-34) U/L Alkaline Phosphatase (38-126) U/L Troponin I (0.000-0.034) ng/mL NT-Pro-B Natriuret Pep pg/mL Total Protein (6.3-8.2) g/dL Albumin (3.5-5.0) g/dL Lipase (23-300) U/L TSH (0.465-4.680) mIU/L Free T4 (0.78-2.19) ng/dL Free T3 pg/mL (2.8-5.3) pg/ml Urine Color Light Yellow Urine Appearance Cloudy H (Clear) Urine pH 6.0 (5.0-8.0) Ur Specific [place] 1.011 (1.001-1.035) Urine Protein Negative (Negative) Urine Glucose (UA) Negative (Negative) Urine Ketones Negative (Negative) Urine Blood Negative (Negative) Urine Nitrite Negative (Negative) Urine Bilirubin Negative (Negative) Urine Urobilinogen <2.0 (<2.0) mg/dL Ur Leukocyte Esterase Negative (Negative) Urine RBC 1 (0-5) /hpf Urine WBC 4 (0-5) /hpf Ur Squamous Epith Cells 8 H (0-4) /hpf Urine Bacteria Many H (None) /hpf Urine Mucus Rare H (None) /hpf Urine Opiates Screen Not Detected (NotDetected) Ur Oxycodone Screen Not Detected (NotDetected) Urine Methadone Screen Not Detected (NotDetected) Ur Propoxyphene Screen Not Detected (NotDetected) Ur Barbiturates Screen Not Detected (NotDetected) U Tricyclic Antidepress Not Detected (NotDetected) Ur Phencyclidine Scrn Not Detected (NotDetected) Ur Amphetamines Screen Detected H (NotDetected) U Methamphetamines Scrn Not Detected (NotDetected) U Benzodiazepines Scrn Not Detected (NotDetected) Urine Cocaine Screen Not Detected (NotDetected) U Marijuana (THC) Screen Not Detected (NotDetected) - Radiology Data Radiology results: image reviewed (Chest x-ray is negative) Disposition Clinical Impression: Palpitations Disposition: HOME SELF-CARE Condition: Stable Instructions (If sedation given, give patient instructions): Heart Palpitations (ED) Additional Instructions: Return to the ER immediately should you develop new or worsening pain, increased or persistent shortness of breath, chest pain, feeling dizzy or faint, vomiting, a fever, or new or worsening symptoms. Follow up closely with your primary care provider. Is patient prescribed a controlled substance at d/c from ED?: No Referrals: Chantelle Navarrete DO [Primary Care Provider] - 1-2 days Time of Disposition: 19:38
[2020-10-16] MEDS ORDERED: SODIUM CHLORIDE 0.9% 500 ML 500 ML IV STA (17:56)
[2020-10-16 18:14] LABS: Basophils # (A) 0.1 k/uL (0-0.2); Basophils % (A) 1 %; Eosinophils # (A) 0.1 k/uL (0-0.7); Eosinophils % (A) 1 %; HCT 42.5 % (34.0-46.0); Lymphocytes # (A) 2.2 k/uL (1.0-4.8); Lymphocytes % (A) 35 %; MCH 29.6 pg (25.0-35.0); MCHC 33.1 g/dL (31.0-37.0); MCV 89.5 fL (80.0-100.0); Mean Platelet Volume 6.4; Monocytes # (A) 0.4 k/uL (0-1.0); Monocytes % (A) 7 %; Neutrophils # (A) 3.3 k/uL (1.3-7.7); Neutrophils % (A) 54 %; Platelet Count 283 k/uL (150-450); RBC 4.75 m/uL (3.80-5.40); RDW 13.4 % (11.5-15.5); WBC 6.1 k/uL (3.8-10.6)
[2020-10-16 18:25] LABS: Albumin 4.4 g/dL (3.5-5.0); Potassium 4.1 mmol/L (3.5-5.1); Total Bilirubin 0.4 mg/dL (0.2-1.3); Total Protein 7.5 g/dL (6.3-8.2)
[2020-10-16 18:31] LABS: INR 0.9 (<1.2); Partial Thromboplastin Time 23.3 sec (22.0-30.0)
--- NOTE | 2020-10-16 18:40 | XR ---
EXAMINATION TYPE: XR chest 2V DATE OF EXAM: 10/16/2020 COMPARISON: 03/23/2020 HISTORY: Dysrhythmia. Chest pain TECHNIQUE: FINDINGS: Heart and mediastinum are normal. Lungs are clear. Diaphragm is normal. There are chest isamar ds. Bony thorax is intact. IMPRESSION: Normal chest. No change.
[2020-10-16 19:12] LABS: Amphetamine Screen,Urine Detected (NotDetected); Appearance,Urine Cloudy (Clear); Bacteria,Urine Many /hpf; Barbiturate Screen,Urine Not Detected (NotDetected); Benzodiazepines Screen,Urine Not Detected (NotDetected); Bilirubin,Urine Negative (Negative); Blood,Urine Negative (Negative); Cocaine Screen,Urine Not Detected (NotDetected); Color,Urine Light Yellow; Glucose,Urine (UA) Negative (Negative); Ketones,Urine Negative (Negative); Leukocyte Esterase,Urine Negative (Negative); Methadone Screen, Urine Not Detected (NotDetected); Mucus,Urine Rare /hpf; Nitrite,Urine Negative (Negative); Opiate Screen,Urine Not Detected (NotDetected); Oxycodone Screen, Urine Not Detected (NotDetected); Phencyclidine Screen,Urine Not Detected (NotDetected); Protein,Urine Negative (Negative); RBC,Urine 1 /hpf (0-5); Specific Gravity,Urine 1.011 (1.001-1.035); Squamous Epithelial Cell,Urine 8 /hpf (0-4); Tricyclic Antidepressant,Urine Not Detected (NotDetected); Urn Cannabinoid Scrn Not Detected (NotDetected); Urobilinogen,Urine <2.0 mg/dL (<2.0); WBC,Urine 4 /hpf (0-5)
[2020-10-16 19:22] LABS: T4, Free (Free Thyroxine) 0.73 ng/dL (0.78-2.19)
[2020-10-16 19:49] VITALS: BP 117/78; PULSE 74; RESP 16; TEMP 97.1
== END 2020-10-16 20:01 | disposition home or self-care (01) ==
LOC: EC 17:22
DX: R00.2 Palpitations (principal); R06.00 Dyspnea, unspecified; K21.9 Gastro-esophageal reflux disease without esophagitis; E78.5 Hyperlipidemia, unspecified; G47.33 Obstructive sleep apnea (adult) (pediatric); E07.9 Disorder of thyroid, unspecified; Z79.899 Other long term (current) drug therapy; Z99.89 Dependence on other enabling machines and devices; Z88.2 Allergy status to sulfonamides; Z88.5 Allergy status to narcotic agent; Z88.6 Allergy status to analgesic agent; Z91.048 Other nonmedicinal substance allergy status; Z91.041 Radiographic dye allergy status; Z90.710 Acquired absence of both cervix and uterus; Z90.49 Acquired absence of other specified parts of digestive tract; Z85.850 Personal history of malignant neoplasm of thyroid
CPT/HCPCS: 36415; 71046; 80053; 80306; 81001; 83690; 83735; 83880; 84439; 84443; 84481; 84484; 85025; 85610; 85730; 93005; 96360; 99285

== ENCOUNTER → 2021-07-18 | Outpatient (CLI) | payer BC ==
--- NOTE | 2021-07-18 11:41 | MR ---
EXAMINATION TYPE: MR brain wo/w con DATE OF EXAM: 07/18/2021 COMPARISON: None HISTORY: Progressive expressive aphasia, dizziness TECHNIQUE: Multiplanar, multisequence images of the brain and brainstem is performed without and with IV contras t, utilizing 10 mL intravenous Gadavist . FINDINGS: At the level of the internal carotid artery on the left likely originating at the same leve l as the left ophthalmic artery there is a signal void seen on inversion recovery T2-weighted sequenc es, mixed intermediate and low signal on T1, findings likely represent aneurysm with some local mass effect and measuring approximately 18 to 22 mm in cephalocaudal dimension by 13 mm in transverse dime nsion by 12 mm in anterior posterior dimension. Diffusion weighted images demonstrate no evidence of a recent infarct or other diffusion abnormality. There is no extra-axial fluid collection or signifi cant white matter signal abnormality. The ventricular system and cisternal spaces are normal in size and appearance. The brain volume is age appropriate. Midline structures demonstrate normal morphology. The craniocervical junction appears within normal limits. Post contrast images demonstrate abnormal uniform of the abnormality. The dural venous sinus es appear patent. The visualized sinuses are remarkable for minimal inflammatory change along the eth moid air cells, and the globes are intact. IMPRESSION: Large intracranial aneurysm, report relayed to the office of Dr. High to Swathi ty me of interpretation.
== END | disposition home or self-care (01) ==
LOC: RADMRIMAIN 08:41
PROVIDERS: ATTEND Psychiatry & Neurology Neurology
DX: I67.1 Cerebral aneurysm, nonruptured (principal)
CPT/HCPCS: 70553; A9585

== ENCOUNTER → 2021-07-19 | Outpatient (CLI) | payer BC ==
--- NOTE | 2021-07-19 15:53 | CT ---
EXAMINATION TYPE: CT angio head neck DATE OF EXAM: 07/19/2021 HISTORY: Left-sided ICA aneurysm, recent abnormal MRI COMPARISON: MRI brain from yesterday CT DLP: 1807.2 mGycm. Automated Exposure Control for Dose Reduction was Utilized. TECHNIQUE: CTA scan of the head and neck are performed without and with IV Contrast, patient injecte d with 65cc mL of Isovue 370, axial images are obtained, coronal and sagittal reformatted images are reviewed. 3D reconstructed images are created on an independent workstation and reviewed. FINDINGS: Carotid/Vascular Structures: Normal vessel origin from aortic arch. No significant plaque or stenosis in the common or internal carotid arteries bilaterally. Patent external Carotid arteries bilaterally without significant stenosis . Codominant vertebral arteries patent to basilar junction. Patent bilateral posterior communicating ar teries. No significant focal stenosis or aneurysm. Anterior circulation confirms a densely opacified enhancing 14 x 11 mm aneurysm extending superiorly from the distal left common carotid artery. Hypopl astic anterior communicating artery. There is no additional significant focal stenosis or aneurysm in the anterior circulation. Other: Noncontrast CT shows no acute intracranial hemorrhage or midline shift. Volume age appropriate . Anderson-white matter differentiation maintained. Visualized sinuses are clear. 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 Advise endovascular and/or surgical referral. NASCET criteria was used in interpretation of this exam?
== END | disposition home or self-care (01) ==
LOC: RADCTMAIN 07-18 15:34
PROVIDERS: ATTEND Psychiatry & Neurology Neurology
DX: I72.0 Aneurysm of carotid artery (principal)
CPT/HCPCS: 70496; 70498; Q9967

== ENCOUNTER 2021-08-01 06:39 | Inpatient (IN) | payer BC ==
[2021-08-01] MEDS ORDERED: ACETAMINOPHEN TAB 500 MG TAB PO STA (07:23)
--- NOTE | 2021-08-01 07:40 | ED ---
General Adult HPI - General Chief complaint: Shortness of Breath Stated complaint: COVID+, weakness, BRAYDEN Time Seen by Provider: 08/01/21 06:40 Source: EMS, RN notes reviewed Mode of arrival: EMS Limitations: physical limitation - History of Present Illness Initial comments: 56-year-old female presents to the emergency room for past medical history of GE RD, hyperlipidemia, thyroid cancer, diabetes mellitus presents to the emergency room for a chief complaint of shortness of breath. Patient has had a cough and upper respiratory symptoms for the past 5 or 6 days now. Patient has felt short of breath for the past several days. She called 911 today and when EMS arrived she was 80% on room air. States she has been trying to get the antibodies but has been unsuccessful.Patient has no other complaints at this time including chest pain, abdominal pain, nausea or vomiting, headache, or visual changes. - Related Data Home Medications Medication Instructions Recorded Confirmed Cetirizine HCl [Zyrtec] 10 mg PO DAILY 05/06/18 08/01/21 Cevimeline HCl [Evoxac] 30 mg PO TID 05/06/18 08/01/21 Cholecalciferol [Vitamin D3] 25 mcg PO DAILY 05/06/18 08/01/21 Multivitamins, Thera [Multivitamin 1 tab PO DAILY 05/06/18 08/01/21 (formulary)] Cyanocobalamin (Vitamin B-12) 5,000 mcg PO DAILY 04/07/20 08/01/21 [Vitamin B-12] Black Elderberry 2,000mg 2,000 mg PO DAILY 10/16/20 08/01/21 Calcium/Magnesium/Vit D3 Complex 1 cap PO DAILY 10/16/20 08/01/21 Chromium Picolinate 200 mcg PO DAILY 10/16/20 08/01/21 Cranberry W/Vit C 1 tab PO DAILY 10/16/20 08/01/21 Inflamed (Curcumin Blend) 1 cap PO DAILY 10/16/20 08/01/21 L.acidoph,Paracasei, B.lactis 1 cap PO DAILY 10/16/20 08/01/21 [Probiotic] Magnesium Citrate 225mg/5ml 225 mg PO DAILY 10/16/20 08/01/21 Psyllium Husk [Metamucil] 0.4 gm PO DAILY 10/16/20 08/01/21 Pure [place] Hp-375 Epa/125 Dha 1 cap PO DAILY 10/16/20 08/01/21 Thyroid,Pork [[place] Thyroid] 90 mg PO SUTUWETHFRSA 10/16/20 08/01/21 Topiramate [Topamax] 50 mg PO BID 10/16/20 08/01/21 Vitamin A 3,000 Units 3,000 units PO DAILY 10/16/20 08/01/21 Zinc Citrate 30mg 30 mg PO DAILY 10/16/20 08/01/21 bisacodyL [Dulcolax] 5 mg PO DAILY 10/16/20 08/01/21 Albuterol Sulfate [Ventolin HFA] 2 puff INHALATION RT-QID 08/01/21 08/01/21 Ascorbic Acid [Vitamin C] 500 mg PO DAILY 08/01/21 08/01/21 Aspirin 81 mg PO DAILY 08/01/21 08/01/21 Escitalopram [Lexapro] 10 mg PO DAILY 08/01/21 08/01/21 Estradiol 10.5/Testosterone 0.15 0.125 tsp TOPICAL BID 08/01/21 08/01/21 Compound Cream Estradiol [Vagifem] 10 mcg VG MOWEFR 08/01/21 08/01/21 Ferrous Sulfate [Feosol] 325 mg PO DAILY 08/01/21 08/01/21 Omeprazole Magnesium [PriLOSEC OTC] 40 mg PO DAILY 08/01/21 08/01/21 Progesterone,Micronized 140-Dh8mg 1 cap PO BID 08/01/21 08/01/21 Cap Thyroid,Pork [[place] Thyroid] 135 mg PO MO 08/01/21 08/01/21 Ticagrelor [Brilinta] 90 mg PO BID 08/01/21 08/01/21 methylPREDNISolone Dose Pack See Taper PO DAILY 08/01/21 08/01/21 [Medrol Dose Pack] Allergies Allergy/AdvReac Type Severity Reaction Status Date / Time adhesive Allergy Rash/Hives Verified 08/01/21 07:09 Iodine and Iodide Containing Allergy Rash/Hives Verified 08/01/21 07:09 Produc meperidine [From Demerol] Allergy Rash/Hives Verified 08/01/21 07:09 NSAIDS (Non-Steroidal Allergy Unknown Verified 08/01/21 07:09 Anti-Inflamma Sulfa (Sulfonamide Allergy Rash/Hives Verified 08/01/21 07:09 Antibiotics) surgical glue Allergy blisters Uncoded 08/01/21 07:09 and rash Review of Systems ROS Statement: Those systems with pertinent positive or pertinent negative responses have been documented in the HPI. ROS Other: All systems not noted in ROS Statement are negative. Past Medical History Past Medical History: Cancer, GERD/Reflux, Hyperlipidemia, Sleep Apnea/CPAP/BIPAP, Thyroid Disorder Additional Past Medical History / Comment(s): hx thyroid cancer, diet controlled diabetes, has cpap machine, brain aneurysm History of Any Multi-Drug Resistant Organisms: None Reported Past Surgical History: Bariatric Surgery, Bowel Resection, Hernia Repair, Hysterectomy Additional Past Surgical History / Comment(s): gastic sleeve, total thyroidectomy,hiatal hernia repair, vaginal repair, rectal vaginal fistula repair, laparoscopic surgery for endometriosis, brain aneurtm surget on 07/23 Past Anesthesia/Blood Transfusion Reactions: Postoperative Nausea & Vomiting (PONV) Past Psychological History: No Psychological Hx Reported Smoking Status: Never smoker Past Alcohol Use History: Rare Past Drug Use History: None Reported - Past Family History Mother Family Medical History: No Reported History General Exam Limitations: physical limitation General appearance: alert, in no apparent distress Head exam: Present: atraumatic Eye exam: Present: normal appearance, PERRL, EOMI. Absent: scleral icterus, conjunctival injection ENT exam: Present: normal exam, mucous membranes moist Neck exam: Present: normal inspection, full ROM. Absent: tenderness Respiratory exam: Present: normal lung sounds bilaterally. Absent: respiratory distress, wheezes Cardiovascular Exam: Present: regular rate, normal rhythm, normal heart sounds GI/Abdominal exam: Present: soft, normal bowel sounds. Absent: distended, tenderness Neurological exam: Present: alert Course Vital Signs 08/01/21 08/01/21 08/01/21 06:40 07:58 08:00 Temperature 99.5 F Pulse Rate 103 H 104 H Respiratory 22 26 H Rate Blood Pressure 130/74 121/67 O2 Sat by Pulse 95 89 L 93 L Oximetry EKG Findings - EKG Comments: EKG Findings:: sinus tachycardia, vent rate 105, pr int 132, QTc 457 Medical Decision Making - Medical Decision Making Patient was brought in by EMS. She was allegedly 80% on room air at home. On arrival she was on 4 L at 95%. We did take this off to evaluate her room air oxygenation which was dropping down into the 80s. 2 L were reapplied. Confirmed patient COVID-19 positive with the test here in the ER. CBC unremarkable. CMP does show evidence of dehydration with minimal elevation of liver enzymes likely secondary to COVID-19. Inflammatory markers obtained for upstairs. Patient did have a slightly elevated d-dimer, CT will be obtained. Chest x-ray in the meantime did show pneumonia. Case was discussed with Dr. Uribe who did accept the admission. We will not initiate any type of anticoagulation on patient until CAT scan of chest is obtained especially given she recently had coil placed for brain aneurysm. - Lab Data Result diagrams: 08/01/21 07:31 12 07:31 Lab Results 08/01/21 08/01/21 08/01/21 Range/Units 07:31 07:31 07:31 WBC 8.9 (3.8-10.6) k/uL RBC 4.93 (3.80-5.40) m/uL Hgb 14.7 (11.4-16.0) gm/dL Hct 43.0 (34.0-46.0) % MCV 87.1 (80.0-100.0) fL MCH 29.8 (25.0-35.0) pg MCHC 34.2 (31.0-37.0) g/dL RDW 13.5 (11.5-15.5) % Plt Count 261 (150-450) k/uL MPV 6.8 Neutrophils % 91 % Lymphocytes % 5 % Monocytes % 3 % Eosinophils % 0 % Basophils % 0 % Neutrophils # 8.1 H (1.3-7.7) k/uL Lymphocytes # 0.5 L (1.0-4.8) k/uL Monocytes # 0.3 (0-1.0) k/uL Eosinophils # 0.0 (0-0.7) k/uL Basophils # 0.0 (0-0.2) k/uL PT 9.6 (9.0-12.0) sec INR 0.9 (<1.2) APTT 24.1 (22.0-30.0) sec D-Dimer 1.11 H (<0.60) mg/L FEU Sodium 136 L (137-145) mmol/L Potassium 4.7 (3.5-5.1) mmol/L Chloride 100 (98-107) mmol/L Carbon Dioxide 23 (22-30) mmol/L Anion Gap 13 mmol/L BUN 18 H (7-17) mg/dL Creatinine 0.85 (0.52-1.04) mg/dL Est GFR (CKD-EPI)AfAm 90 (>60 ml/min/1.73 sqM) Est GFR (CKD-EPI)NonAf 78 (>60 ml/min/1.73 sqM) Glucose 163 H (74-99) mg/dL Plasma Lactic Acid Thang (0.7-2.0) mmol/L Calcium 8.8 (8.4-10.2) mg/dL Magnesium 2.0 (1.6-2.3) mg/dL Total Bilirubin 0.5 (0.2-1.3) mg/dL AST 59 H (14-36) U/L ALT 40 H (4-34) U/L Alkaline Phosphatase 88 (38-126) U/L Lactate Dehydrogenase 1486 H (313-618) U/L C-Reactive Protein 20.4 H (<1.0) mg/dL Total Protein 6.7 (6.3-8.2) g/dL Albumin 3.5 (3.5-5.0) g/dL Coronavirus (PCR) (Not Detectd) 08/01/21 08/01/21 Range/Units 07:31 07:33 WBC (3.8-10.6) k/uL RBC (3.80-5.40) m/uL Hgb (11.4-16.0) gm/dL Hct (34.0-46.0) % MCV (80.0-100.0) fL MCH (25.0-35.0) pg MCHC (31.0-37.0) g/dL RDW (11.5-15.5) % Plt Count (150-450) k/uL MPV Neutrophils % % Lymphocytes % % Monocytes % % Eosinophils % % Basophils % % Neutrophils # (1.3-7.7) k/uL Lymphocytes # (1.0-4.8) k/uL Monocytes # (0-1.0) k/uL Eosinophils # (0-0.7) k/uL Basophils # (0-0.2) k/uL PT (9.0-12.0) sec INR (<1.2) APTT (22.0-30.0) sec D-Dimer (<0.60) mg/L FEU Sodium (137-145) mmol/L Potassium (3.5-5.1) mmol/L Chloride (98-107) mmol/L Carbon Dioxide (22-30) mmol/L Anion Gap mmol/L BUN (7-17) mg/dL Creatinine (0.52-1.04) mg/dL Est GFR (CKD-EPI)AfAm (>60 ml/min/1.73 sqM) Est GFR (CKD-EPI)NonAf (>60 ml/min/1.73 sqM) Glucose (74-99) mg/dL Plasma Lactic Acid Thang 1.3 (0.7-2.0) mmol/L Calcium (8.4-10.2) mg/dL Magnesium (1.6-2.3) mg/dL Total Bilirubin (0.2-1.3) mg/dL AST (14-36) U/L ALT (4-34) U/L Alkaline Phosphatase (38-126) U/L Lactate Dehydrogenase (313-618) U/L C-Reactive Protein (<1.0) mg/dL Total Protein (6.3-8.2) g/dL Albumin (3.5-5.0) g/dL Coronavirus (PCR) Detected A (Not Detectd) Disposition Clinical Impression: COVID-19, Acute respiratory failure with hypoxia, Dehydration Disposition: ADMITTED IP TO THIS HOSP Is patient prescribed a controlled substance at d/c from ED?: No Referrals: Chantelle Navarrete DO [Primary Care Provider] - 1-2 days Time of Disposition: 08:59
[2021-08-01 07:41] LABS: Basophils % (A) 0 %; Eosinophils % (A) 0 %; HGB 14.7 gm/dL (11.4-16.0); Lymphocytes # (A) 0.5 k/uL (1.0-4.8); Lymphocytes % (A) 5 %; MCH 29.8 pg (25.0-35.0); MCHC 34.2 g/dL (31.0-37.0); MCV 87.1 fL (80.0-100.0); Mean Platelet Volume 6.8; Monocytes # (A) 0.3 k/uL (0-1.0); Monocytes % (A) 3 %; Neutrophils # (A) 8.1 k/uL (1.3-7.7); Neutrophils % (A) 91 %; Platelet Count 261 k/uL (150-450); RBC 4.93 m/uL (3.80-5.40); RDW 13.5 % (11.5-15.5); WBC 8.9 k/uL (3.8-10.6)
[2021-08-01 07:57] LABS: Albumin 3.5 g/dL (3.5-5.0); Calcium 8.8 mg/dL (8.4-10.2); Potassium 4.7 mmol/L (3.5-5.1); Total Bilirubin 0.5 mg/dL (0.2-1.3); Total Protein 6.7 g/dL (6.3-8.2)
[2021-08-01 07:58] LABS: INR 0.9 (<1.2); Partial Thromboplastin Time 24.1 sec (22.0-30.0); Prothrombin Time 9.6 sec (9.0-12.0)
[2021-08-01] MEDS ORDERED: ONDANSETRON 4 MG/2 ML VIAL IVP STA (08:07)
--- NOTE | 2021-08-01 08:11 | XR ---
EXAMINATION TYPE: XR chest 1V portable DATE OF EXAM: 08/01/2021 COMPARISON: Chest x-ray 10/16/2020 HISTORY: Covid 19 pneumonia TECHNIQUE: Single frontal view of the chest is obtained. FINDINGS: Patchy densities present in the bilateral lungs. No evident pneumothorax or pleural effusi on. Cardiac mediastinal silhouette is stable. There are overlying artifacts. Bones are unchanged. IMPRESSION: Correlate for pneumonia, follow-up suggested.
[2021-08-01 08:29] LABS: C Reactive Protein 20.4 mg/dL (<1.0)
[2021-08-01] MEDS ORDERED: diphenhydrAMINE 50 MG/ML 1 ML VIAL IVP STA (08:35)
[2021-08-01] MEDS ORDERED: methylPREDNISolone SOD SUCCI 125 MG/2 ML VIAL IV STA (08:35)
[2021-08-01] MEDS ORDERED: FAMOTIDINE 20 MG/2 ML VIAL IV STA (08:35)
[2021-08-01] MEDS ORDERED: NALOXONE 0.4 MG/ML 1 ML VIAL IV PRN (08:55)
[2021-08-01] MEDS ORDERED: DEXAMETHASONE SOD PHOSPHATE 10 MG/ML 1 ML VIAL IVP STA (08:56)
--- NOTE | 2021-08-01 09:59 | CT ---
EXAMINATION TYPE: CT brain wo con DATE OF EXAM: 08/01/2021 COMPARISON: 07/19/2021 HISTORY: headache, history of aneurysm CT DLP: 1019.[address] of the brain was performed. Left suprasellar aneurysm clipping results in extensive streak artifact limiting evaluation. The ventricles, basal cisterns and sulci overlying the cerebral convexities demonstrate mild enlargem ent. There is no evidence for intracranial hemorrhage or sulcal effacement. There is decreased attenuation about the periventricular white matter and deep white matter of both c erebral hemispheres, compatible with chronic small vessel ischemia. Differential diagnosis does inclu de demyelination. No mass effects are seen.No midline shift. Osseous calvarium is intact. If symptoms persist consider MRI. IMPRESSION: 1. Age related atrophic and chronic small vessel ischemic change without acute intracranial process s een at this time. Postoperative changes of aneurysm clipping.
--- NOTE | 2021-08-01 10:06 | CT ---
EXAMINATION TYPE: CT chest angio for PE DATE OF EXAM: 08/01/2021 COMPARISON: Chest x-ray earlier today. HISTORY: covid positive, shortness of breath, rule out PE CT DLP: 720.7 mGycm. Automated Exposure Control for Dose Reduction was Utilized. CONTRAST: CTA scan of the thorax is performed with IV Contrast, patient injected with 100 mL of Isovue 370, pul monary embolism protocol. MIP Images are created on CT scanner and reviewed. FINDINGS: LUNGS: Multifocal groundglass opacities greatest in the lower lungs where there is dependent atelecta sis and/or organizing consolidations identified. No pleural effusion or pneumothorax seen bilaterally . Tracheobronchial tree is patent. MEDIASTINUM: There is satisfactory enhancement of the pulmonary artery and its branches, there is no CT evidence for pulmonary embolism. Satisfactory enhancement of the thoracic aorta without aneurysm o r dissection. There are no greater than 1 cm hilar or mediastinal lymph nodes. No cardiomegaly or p ericardial effusion is seen. Poorly visualized thyroid gland may be atrophic or surgically absent. OTHER: Slight underlying S-shaped scoliosis. [id number] multilevel spurring. IMPRESSION: No CT evidence for acute pulmonary embolism. Bilateral multifocal groundglass opacities c onsistent with covid-19 infection.
[2021-08-01] MEDS: SODIUM CHLORIDE 0.9% 1,000 ML IV SCH ×2 (10:36→23:56)
--- NOTE | 2021-08-01 10:37 | P.HPIM ---
History of Present Illness H&P Date: 08/01/21 Chief Complaint: CC: shortness of breath Patient is a 56-year-old female with a past medical history of GERD, hyperlipidemia, thyroid cancer, hypothyroidism, depression and recent history of brain aneurysm status post coiling that was done one week ago at [facility] presents to the ED with shortness of breath that started 1 week ago. Patient states that about 4 days ago she tested herself at home for COVID-19 and was positive. She states that her symptoms continued to worsen so she called EMS today. EMS found her to be satting at 80% on room air. In the ED COVID-19 was positive. Chest x-ray showed bilateral consolidation consistent with pneumonia. Patient's d-dimer was 1.11. CTA chest was negative for pulmonary embolism but did show bilateral consolidations consistent with COVID-19. CRP was 20.4 and LDH was 1486. Pro-calcitonin is pending. CT head without contrast shows stable clipping of the brain aneurysm and no acute head bleed.. Review of Systems 10 ROS reviewed and are negative except as noted in HPI Past Medical History Past Medical History: Cancer, GERD/Reflux, Hyperlipidemia, Sleep Apnea/CPAP/BIPAP, Thyroid Disorder Additional Past Medical History / Comment(s): hx thyroid cancer, diet controlled diabetes, has cpap machine, brain aneurysm History of Any Multi-Drug Resistant Organisms: None Reported Past Surgical History: Bariatric Surgery, Bowel Resection, Hernia Repair, Hysterectomy Additional Past Surgical History / Comment(s): gastic sleeve, total thyroidectomy,hiatal hernia repair, vaginal repair, rectal vaginal fistula repair, laparoscopic surgery for endometriosis, brain aneurtm surget on 07/23 Past Anesthesia/Blood Transfusion Reactions: Postoperative Nausea & Vomiting (PONV) Past Psychological History: No Psychological Hx Reported Smoking Status: Never smoker Past Alcohol Use History: Rare Past Drug Use History: None Reported - Past Family History Mother Family Medical History: No Reported History Medications and Allergies Home Medications Medication Instructions Recorded Confirmed Type Cetirizine HCl [Zyrtec] 10 mg PO DAILY 05/06/18 08/01/21 History Cevimeline HCl [Evoxac] 30 mg PO TID 05/06/18 08/01/21 History Cholecalciferol [Vitamin D3] 25 mcg PO DAILY 05/06/18 08/01/21 History Multivitamins, Thera [Multivitamin 1 tab PO DAILY 05/06/18 08/01/21 History (formulary)] Cyanocobalamin (Vitamin B-12) 5,000 mcg PO DAILY 04/07/20 08/01/21 History [Vitamin B-12] Black Elderberry 2,000mg 2,000 mg PO DAILY 10/16/20 08/01/21 History Calcium/Magnesium/Vit D3 Complex 1 cap PO DAILY 10/16/20 08/01/21 History Chromium Picolinate 200 mcg PO DAILY 10/16/20 08/01/21 History Cranberry W/Vit C 1 tab PO DAILY 10/16/20 08/01/21 History Inflamed (Curcumin Blend) 1 cap PO DAILY 10/16/20 08/01/21 History L.acidoph,Paracasei, B.lactis 1 cap PO DAILY 10/16/20 08/01/21 History [Probiotic] Magnesium Citrate 225mg/5ml 225 mg PO DAILY 10/16/20 08/01/21 History Psyllium Husk [Metamucil] 0.4 gm PO DAILY 10/16/20 08/01/21 History Pure [place] Hp-375 Epa/125 Dha 1 cap PO DAILY 10/16/20 08/01/21 History Thyroid,Pork [[place] Thyroid] 90 mg PO SUTUWETHFRSA 10/16/20 08/01/21 History Topiramate [Topamax] 50 mg PO BID 10/16/20 08/01/21 History Vitamin A 3,000 Units 3,000 units PO DAILY 10/16/20 08/01/21 History Zinc Citrate 30mg 30 mg PO DAILY 10/16/20 08/01/21 History bisacodyL [Dulcolax] 5 mg PO DAILY 10/16/20 08/01/21 History Albuterol Sulfate [Ventolin HFA] 2 puff INHALATION RT-QID 08/01/21 08/01/21 History Ascorbic Acid [Vitamin C] 500 mg PO DAILY 08/01/21 08/01/21 History Aspirin 81 mg PO DAILY 08/01/21 08/01/21 History Escitalopram [Lexapro] 10 mg PO DAILY 08/01/21 08/01/21 History Estradiol 10.5/Testosterone 0.15 0.125 tsp TOPICAL BID 08/01/21 08/01/21 History Compound Cream Estradiol [Vagifem] 10 mcg VG MOWEFR 08/01/21 08/01/21 History Ferrous Sulfate [Feosol] 325 mg PO DAILY 08/01/21 08/01/21 History Omeprazole Magnesium [PriLOSEC OTC] 40 mg PO DAILY 08/01/21 08/01/21 History Progesterone,Micronized 140-Dh8mg 1 cap PO BID 08/01/21 08/01/21 History Cap Thyroid,Pork [[place] Thyroid] 135 mg PO MO 08/01/21 08/01/21 History Ticagrelor [Brilinta] 90 mg PO BID 08/01/21 08/01/21 History methylPREDNISolone Dose Pack See Taper PO DAILY 08/01/21 08/01/21 History [Medrol Dose Pack] Allergies Allergy/AdvReac Type Severity Reaction Status Date / Time adhesive Allergy Rash/Hives Verified 08/01/21 07:09 Iodine and Iodide Containing Allergy Rash/Hives Verified 08/01/21 07:09 Produc meperidine [From Demerol] Allergy Rash/Hives Verified 08/01/21 07:09 NSAIDS (Non-Steroidal Allergy Unknown Verified 08/01/21 07:09 Anti-Inflamma Sulfa (Sulfonamide Allergy Rash/Hives Verified 08/01/21 07:09 Antibiotics) surgical glue Allergy blisters Uncoded 08/01/21 07:09 and rash Physical Exam Osteopathic Statement: *. No significant issues noted on an osteopathic st ructural exam other than those noted in the History and Physical/Consult. Vitals: Vital Signs Temp Pulse Resp BP Pulse Ox 08/01/21 09:02 99 F 96 28 H 104/65 93 L 08/01/21 08:00 93 L 08/01/21 07:58 104 H 26 H 121/67 89 L 08/01/21 06:40 99.5 F 103 H 22 130/74 95 Intake and Output 07/31/21 08/01/21 08/01/21 22:59 06:59 14:59 Other: Weight 100.698 kg General: [Alert and orientedx3, well nourished, in mild respiratory distress]. Eye: [PERRL, EOMI, normal conjunctiva]. HENT: [Normocephalic, clear tympanic membranes, normal hearing, moist oral mucosa, no scleral icterus, no sinus tenderness]. Neck: [Supple, non-tender, no carotid bruits, no JVD, no lymphadenopathy]. Lungs: [Clear to auscultation and percussion, non-labored respiration]. Heart: [Normal rate, regular rhythm, no murmur, gallop or edema]. Abdomen: [Soft, non-tender, non-distended, normal bowel sounds, no masses]. Musculoskeletal: [Normal range of motion and strength, no tenderness or swelling]. Skin: [Skin is warm, dry and pink, no rashes or lesions]. Neurologic: [Awake, alert, and oriented X3, CN II-XII intact]. Psychiatric: [Patient is slow to answer some questions]. Results CBC & Chem 7: 08/01/21 07:31 12 07:31 Labs: Abnormal Lab Results - Last 24 Hours (Table) 08/01/21 08/01/21 08/01/21 Range/Units 07:31 07:31 07:31 Neutrophils # 8.1 H (1.3-7.7) k/uL Lymphocytes # 0.5 L (1.0-4.8) k/uL D-Dimer 1.11 H (<0.60) mg/L FEU Sodium 136 L (137-145) mmol/L BUN 18 H (7-17) mg/dL Glucose 163 H (74-99) mg/dL AST 59 H (14-36) U/L ALT 40 H (4-34) U/L Lactate Dehydrogenase 1486 H (313-618) U/L C-Reactive Protein 20.4 H (<1.0) mg/dL Coronavirus (PCR) (Not Detectd) 08/01/21 Range/Units 07:33 Neutrophils # (1.3-7.7) k/uL Lymphocytes # (1.0-4.8) k/uL D-Dimer (<0.60) mg/L FEU Sodium (137-145) mmol/L BUN (7-17) mg/dL Glucose (74-99) mg/dL AST (14-36) U/L ALT (4-34) U/L Lactate Dehydrogenase (313-618) U/L C-Reactive Protein (<1.0) mg/dL Coronavirus (PCR) Detected A (Not Detectd) Assessment and Plan Assessment: #COVID-19 pneumonia -Consult pulmonology for remdesivir -We'll start patient on dexamethasone -Follow up procalcitonin and if greater than 0.5 we'll start the patient on antibiotics -Tylenol for fever and pain -CT brain showed stable appearing of brain aneurysm so okay to start patient on prophylactic dose of Lovenox -Patient currently on 4 L nasal cannula and is satting well. #Brain aneurysm status post coiling done at [facility] about one week ago -Patient started on aspirin and brilinta which we will resume by neurointensivist, Dr. Casanova at [facility]. -Patient also started on atorvastatin however she is refusing to take it because she believes her cholesterol is within normal limits. -CT head on admission showed stable clipping of the brain aneurysm Chronic conditions: GERD, hyperlipidemia, thyroid cancer, hypothyroidism, depression: Resume home meds CODE STATUS:full code DVT prophylaxis: lovenox Discussed with: Patient, ER, rn Anticipated length of stay > than [address]: home A total of 50 minutes was spent on the care of this complex patient more than 50% of the time was spent in counseling and care coordination.
[2021-08-01] MEDS: ALBUTEROL HFA INHALER INHALATION SCH ×3 (12:49→19:26)
[2021-08-01] MEDS: ACETAMINOPHEN TAB 325 MG TAB PO PRN (16:57)
[2021-08-01] MEDS: ONDANSETRON 4 MG/2 ML VIAL IVP PRN (16:58)
[2021-08-01] MEDS: THYROID, PORK 30 MG TAB PO SCH (16:59)
[2021-08-01] MEDS: ENOXAPARIN 40 MG/0.4 ML SYRINGE SQ SCH (17:00)
[2021-08-01] MEDS: CEVIMELINE 30 MG CAP PO SCH ×3 (17:01→23:13)
[2021-08-01] MEDS ORDERED: [UNRECOGNIZED DRUG - OTHER] PO SCH (21:00)
[2021-08-01] MEDS ORDERED: PROGESTERONE PO SCH (21:00)
[2021-08-01] MEDS: TICAGRELOR 90 MG TAB PO SCH (23:14)
[2021-08-01] MEDS: TOPIRAMATE 25 MG TAB PO SCH (23:14)
[2021-08-02] MEDS: [UNRECOGNIZED DRUG - OTHER] PO SCH ×2 (00:40→08:27)
[2021-08-02] MEDS: PROGESTERONE PO SCH ×2 (00:40→08:27)
[2021-08-02] MEDS: ACETAMINOPHEN TAB 325 MG TAB PO PRN ×3 (03:43→22:56)
[2021-08-02 06:05] LABS: Basophils % (A) 0 %; Eosinophils % (A) 0 %; HCT 39.7 % (34.0-46.0); HGB 13.6 gm/dL (11.4-16.0); Lymphocytes # (A) 0.5 k/uL (1.0-4.8); Lymphocytes % (A) 8 %; MCH 30.1 pg (25.0-35.0); MCHC 34.3 g/dL (31.0-37.0); MCV 87.6 fL (80.0-100.0); Mean Platelet Volume 6.6; Monocytes # (A) 0.3 k/uL (0-1.0); Monocytes % (A) 4 %; Neutrophils # (A) 5.2 k/uL (1.3-7.7); Neutrophils % (A) 85 %; Platelet Count 285 k/uL (150-450); RBC 4.53 m/uL (3.80-5.40); RDW 13.5 % (11.5-15.5); WBC 6.1 k/uL (3.8-10.6)
[2021-08-02] MEDS: THYROID, PORK 30 MG TAB PO SCH (06:22)
[2021-08-02 06:23] LABS: ALT 50 U/L (4-34); AST 52 U/L (14-36); African American GFR (CKD) >90 (>60 ml/min/1.73 sqM); Albumin 3.2 g/dL (3.5-5.0); Albumin/Globulin Ratio 1.1; Alkaline Phosphatase 92 U/L (38-126); Anion Gap 10 mmol/L; Blood Urea Nitrogen 16 mg/dL (7-17); Calcium 8.3 mg/dL (8.4-10.2); Carbon Dioxide 21 mmol/L (22-30); Chloride 104 mmol/L (98-107); Glucose 185 mg/dL (74-99); Non-African American GFR(CKD) 86 (>60 ml/min/1.73 sqM); Potassium 3.7 mmol/L (3.5-5.1); Sodium 135 mmol/L (137-145); Total Bilirubin 0.4 mg/dL (0.2-1.3); Total Protein 6.2 g/dL (6.3-8.2)
[2021-08-02 07:18] LABS: Glucose,Whole Blood 176 mg/dL (75-99)
[2021-08-02] MEDS: ALBUTEROL HFA INHALER INHALATION SCH ×4 (07:45→20:59)
[2021-08-02] MEDS: [UNRECOGNIZED DRUG - MIXTURE] PO SCH (08:15)
[2021-08-02] MEDS: MAGNESIUM PO SCH (08:15)
[2021-08-02] MEDS: CHOLECALCIFEROL PO SCH (08:15)
[2021-08-02] MEDS: CALCIUM PO SCH (08:15)
[2021-08-02] MEDS: ASCORBIC ACID 500 MG TAB PO SCH (08:24)
[2021-08-02] MEDS: CEVIMELINE 30 MG CAP PO SCH ×3 (08:24→22:20)
[2021-08-02] MEDS: ASPIRIN 81 MG PO SCH (08:24)
[2021-08-02] MEDS: PANTOPRAZOLE 40 MG TABLET PO SCH (08:24)
[2021-08-02] MEDS: DEXAMETHASONE SOD PHOSPHATE 10 MG/ML 1 ML VIAL IVP SCH (08:25)
[2021-08-02] MEDS: ENOXAPARIN 40 MG/0.4 ML SYRINGE SQ SCH (08:25)
[2021-08-02] MEDS: CYANOCOBALAMIN 500 MCG TAB PO SCH (08:25)
[2021-08-02] MEDS: TOPIRAMATE 25 MG TAB PO SCH ×2 (08:26→22:19)
[2021-08-02] MEDS: MULTIVITAMINS, THERA 1 EACH TAB PO SCH (08:26)
[2021-08-02] MEDS: ESCITALOPRAM 10 MG TAB PO SCH (08:26)
[2021-08-02] MEDS: LORATADINE 10 MG TAB PO SCH (08:26)
[2021-08-02] MEDS: FERROUS SULFATE 325 MG TAB PO SCH (08:26)
[2021-08-02] MEDS: TICAGRELOR 90 MG TAB PO SCH ×2 (08:27→22:19)
[2021-08-02] MEDS: ZINC SULFATE 220 MG CAP PO SCH (08:27)
[2021-08-02 12:00] LABS: Glucose,Whole Blood 176 mg/dL (75-99)
[2021-08-02] MEDS ORDERED: REMDESIVIR 200 MG in SODIUM CHLORIDE 0.9% 250 ML IVPB ONE (13:00)
--- NOTE | 2021-08-02 14:01 | P.CNPUL ---
History of Present Illness Consult date: 08/02/21 Requesting physician: Ricardo Alonso Reason for consult: dyspnea, hypoxemia Chief complaint: Dyspnea, hypoxia, COVID-19 pneumonia History of present illness: 56-year-old white female patient with past medical history morbid obesity status post gastric sleeve surgery, hyperlipidemia, sleep apnea on CPAP, thyroid cancer status post surgical resection and patient is on thyroid hormone replacement, history of total hysterectomy, hernia repair, bowel resection, and most recently brain aneurysm clipping on 07/23/2021. Patient came in to the emergency department on 08/01/2021 with complaints of worsening shortness of breath, weakness, cough. She reports symptom onset a week ago on Sunday on 07/26/2021. She was supposed to come into the emergency department for a scheduled monoclonal antibody infusion however in view of her hypoxia patient was seen and admitted to the hospital. She tested positive for COVID 19. Room air pulse ox was 80%, currently patient is requiring 5 L of oxygen, pulse ox is 89-93%, chest x-ray in the emergency department showed patchy densities in bilateral lungs, no evident pneumothorax or pleural effusion. EKG showed sinus tachycardia. Brain CT was done for the reason of headaches and history of aneurysm clipping, and showed age-related atrophic and chronic small vessel ischemic changes without acute intracranial process at this time, there were pos toperative changes of aneurysm clipping. Admission blood work has been reviewed showing normal white count with the white blood cell count of 8.9, hemoglobin of 14.7, d-dimer was 1.11, INR was 0.9, electrolytes were within normal limits, sodium was 136, the rest of electrolytes were within normal limits, BUN is 18 creatinine 0.85, lactic acid was 1.3, ferritin level was 584, AST was 59, ALT was 40, alkaline phosphatase was 88, LDH was 1486, CRP was 20.4. Pro-calcitonin level was negative at 0.09. Patient states she is not vaccinated, and her and her granddaughter children are also symptomatic and tested positive for COVID-19. CT angiogram of the chest showed no evidence of acute pulmonary embolism, it did show bilateral multifocal groundglass opacities consistent with COVID-19 infection. Patient was started on Decadron 6 mg daily, prophylactic dose Lovenox 40 mg daily, COVID-19 vitamins Review of Systems All systems: negative Constitutional: Reports weakness, Denies chills, Denies fever Eyes: denies blurred vision, denies pain Ears, nose, mouth and throat: Denies headache, Denies sore throat Cardiovascular: Denies chest pain, Denies shortness of breath Respiratory: Reports cough, Reports dyspnea Gastrointestinal: Denies abdominal pain, Denies diarrhea, Denies nausea, Denies vomiting Genitourinary: Denies dysuria, Denies hematuria Musculoskeletal: Denies myalgias Integumentary: Denies pruritus, Denies rash Neurological: Reports headaches, Denies numbness, Denies weakness Psychiatric: Denies anxiety, Denies depression Endocrine: Denies fatigue, Denies weight change Past Medical History Past Medical History: Cancer, Diabetes Mellitus, GERD/Reflux, Hyperlipidemia, Memory Impairment, Sleep Apnea/CPAP/BIPAP, Thyroid Disorder Additional Past Medical History / Comment(s): hx thyroid cancer, diet controlled pre=diabetes, has cpap machine, brain aneurysm, headaches due to aneurysm and memory impairment History of Any Multi-Drug Resistant Organisms: None Reported Past Surgical History: Bariatric Surgery, Bowel Resection, Hernia Repair, Hysterectomy Additional Past Surgical History / Comment(s): gastic sleeve, total thyroidectomy,hiatal hernia repair, vaginal repair, rectal vaginal fistula repair, laparoscopic surgery for endometriosis, brain aneurysm surgery on 07/23 Past Anesthesia/Blood Transfusion Reactions: Postoperative Nausea & Vomiting (PONV) Past Psychological History: No Psychological Hx Reported, Depression Smoking Status: Former smoker Past Alcohol Use History: Rare Additional Past Alcohol Use History / Comment(s): quit 27 years ago smoked 2 years 1 ppd Past Drug Use History: None Reported - Past Family History Mother Family Medical History: No Reported History Medications and Allergies Home Medications Medication Instructions Recorded Confirmed Type Cetirizine HCl [Zyrtec] 10 mg PO DAILY 05/06/18 08/01/21 History Cevimeline HCl [Evoxac] 30 mg PO TID 05/06/18 08/01/21 History Cholecalciferol [Vitamin D3] 25 mcg PO DAILY 05/06/18 08/01/21 History Multivitamins, Thera [Multivitamin 1 tab PO DAILY 05/06/18 08/01/21 History (formulary)] Cyanocobalamin (Vitamin B-12) 5,000 mcg PO DAILY 04/07/20 08/01/21 History [Vitamin B-12] Black Elderberry 2,000mg 2,000 mg PO DAILY 10/16/20 08/01/21 History Calcium/Magnesium/Vit D3 Complex 1 cap PO DAILY 10/16/20 08/01/21 History Chromium Picolinate 200 mcg PO DAILY 10/16/20 08/01/21 History Cranberry W/Vit C 1 tab PO DAILY 10/16/20 08/01/21 History Inflamed (Curcumin Blend) 1 cap PO DAILY 10/16/20 08/01/21 History L.acidoph,Paracasei, B.lactis 1 cap PO DAILY 10/16/20 08/01/21 History [Probiotic] Magnesium Citrate 225mg/5ml 225 mg PO DAILY 10/16/20 08/01/21 History Psyllium Husk [Metamucil] 0.4 gm PO DAILY 10/16/20 08/01/21 History Pure Head Waters Hp-375 Epa/125 Dha 1 cap PO DAILY 10/16/20 08/01/21 History Thyroid,Pork [[place] Thyroid] 90 mg PO [id number] 10/16/20 08/01/21 History Topiramate [Topamax] 50 mg PO BID 10/16/20 08/01/21 History Vitamin A 3,000 Units 3,000 units PO DAILY 10/16/20 08/01/21 History Zinc Citrate 30mg 30 mg PO DAILY 10/16/20 08/01/21 History bisacodyL [Dulcolax] 5 mg PO DAILY 10/16/20 08/01/21 History Albuterol Sulfate [Ventolin HFA] 2 puff INHALATION RT-QID 08/01/21 08/01/21 History Ascorbic Acid [Vitamin C] 500 mg PO DAILY 08/01/21 08/01/21 History Aspirin 81 mg PO DAILY 08/01/21 08/01/21 History Escitalopram [Lexapro] 10 mg PO DAILY 08/01/21 08/01/21 History Estradiol 10.5/Testosterone 0.15 0.125 tsp TOPICAL BID 08/01/21 08/01/21 History Compound Cream Estradiol [Vagifem] 10 mcg VG MOWEFR 08/01/21 08/01/21 History Ferrous Sulfate [Feosol] 325 mg PO DAILY 08/01/21 08/01/21 History Omeprazole Magnesium [PriLOSEC OTC] 40 mg PO DAILY 08/01/21 08/01/21 History Progesterone,Micronized 140-Dh8mg 1 cap PO BID 08/01/21 08/01/21 History Cap Thyroid,Pork [[place] Thyroid] 135 mg PO MO 08/01/21 08/01/21 History Ticagrelor [Brilinta] 90 mg PO BID 08/01/21 08/01/21 History methylPREDNISolone Dose Pack See Taper PO DAILY 08/01/21 08/01/21 History [Medrol Dose Pack] Allergies Allergy/AdvReac Type Severity Reaction Status Date / Time adhesive Allergy Rash/Hives Verified 08/01/21 07:09 Iodine and Iodide Containing Allergy Rash/Hives Verified 08/01/21 07:09 Produc meperidine [From Demerol] Allergy Rash/Hives Verified 08/01/21 07:09 NSAIDS (Non-Steroidal Allergy Unknown Verified 08/01/21 07:09 Anti-Inflamma Sulfa (Sulfonamide Allergy Rash/Hives Verified 08/01/21 07:09 Antibiotics) surgical glue Allergy blisters Uncoded 08/01/21 07:09 and rash Physical Exam Vitals: Vital Signs Temp Pulse Pulse Resp BP BP Pulse Ox 08/02/21 08:00 97.3 F L 84 20 120/72 89 L 08/02/21 05:41 97.9 F 75 18 117/73 90 L 08/02/21 02:27 98.2 F 78 16 125/71 93 L 08/01/21 23:15 16 08/01/21 22:40 98.8 F 88 16 112/70 89 L 08/01/21 20:30 90 18 130/70 93 L 08/01/21 17:05 93 16 133/62 92 L 08/01/21 14:03 96 18 128/79 94 L Intake and Output 08/01/21 08/02/21 08/02/21 22:59 06:59 14:59 Output Total 300 Balance -300 Output: Urine 300 Other: Voiding Method External Catheter Weight 100.698 kg GENERAL EXAM: Alert, pleasant, 56-year-old white female, on the 4 L of oxygen with a pulse ox of 89-90% comfortable in no apparent distress. HEAD: Normocephalic/atraumatic. EYES: Normal reaction of pupils, equal size. Conjunctiva pink, sclera white. NOSE: Clear with pink turbinates. THROAT: No erythema or exudates. NECK: No masses, no JVD, no thyroid enlargement, no adenopathy. CHEST: No chest wall deformity. Symmetrical expansion. LUNGS: Equal air entry with bilateral crackles CVS: Regular rate and rhythm, normal S1 and S2, no gallops, no murmurs, no rubs ABDOMEN: Obese, Soft, nontender. No hepatosplenomegaly, normal bowel sounds, no guarding or rigidity. EXTREMITIES: No clubbing, no edema, no cyanosis, 2+ pulses and upper and lower extremities. MUSCULOSKELETAL: Muscle strength and tone normal. SPINE: No scoliosis or deformity SKIN: No rashes CENTRAL NERVOUS SYSTEM: Alert and oriented -3. No focal deficits, tone is normal in all 4 extremities. PSYCHIATRIC: Alert and oriented -3. Appropriate affect. Intact judgment and insight. Results - Laboratory Findings CBC and BMP: 08/02/21 05:45 08/02/21 05:45 PT/INR, D-dimer PT 9.6 sec (9.0-12.0) 08/01/21 07:31 INR 0.9 (<1.2) 08/01/21 07:31 D-Dimer 1.11 mg/L FEU (<0.60) H 08/01/21 07:31 Abnormal lab findings: Abnormal Labs 08/01/21 08/01/21 08/01/21 07:31 07:31 07:31 Neutrophils # 8.1 H Lymphocytes # 0.5 L D-Dimer 1.11 H Sodium 136 L Carbon Dioxide BUN 18 H Glucose 163 H POC Glucose (mg/dL) Calcium Ferritin 584.0 H AST 59 H ALT 40 H Lactate Dehydrogenase 1486 H C-Reactive Protein 20.4 H Total Protein Albumin Coronavirus (PCR) 08/01/21 08/02/21 08/02/21 07:33 05:45 05:45 Neutrophils # Lymphocytes # 0.5 L D-Dimer Sodium 135 L Carbon Dioxide 21 L BUN Glucose 185 H POC Glucose (mg/dL) Calcium 8.3 L Ferritin AST 52 H ALT 50 H Lactate Dehydrogenase C-Reactive Protein Total Protein 6.2 L Albumin 3.2 L Coronavirus (PCR) Detected A 08/02/21 08/02/21 07:17 11:59 Neutrophils # Lymphocytes # D-Dimer Sodium Carbon Dioxide BUN Glucose POC Glucose (mg/dL) 176 H 176 H Calcium Ferritin AST ALT Lactate Dehydrogenase C-Reactive Protein Total Protein Albumin Coronavirus (PCR) - Diagnostic Findings Chest x-ray: report reviewed, image reviewed CT scan - chest: report reviewed, image reviewed Additional studies: EKG reviewed, CT of the brain reviewed Assessment and Plan Plan: Assessment: #1. Acute hypoxic respiratory failure related to acute COVID-19 pneumonia, with onset of symptoms 7 days prior to the presentation, and patient is within the window for Remdesivir which will be started today on 08/02/2021. #2. Recent history of brain aneurysm clipping on 07/23/2021, follow-up CT of the brain completed at the hospital at the time of admission showed age-related atrophic and chronic small vessel ischemic changes without acute intracranial process. Postoperative changes of aneurysm clipping were seen #3. Elevated inflammatory markers, related to acute COVID-19 pneumonia #4. Hyperlipidemia #5. Hypothyroidism #6. History of thyroid cancer status post surgical resection #7. Morbid obesity status post gastric sleeve surgery, current BMI is 38.1 kg/m #8. History of obstructive sleep apnea #9. Diabetes mellitus type 2, diet-controlled #10. GERD with previous history of hiatal hernia surgery #11. History of endometriosis, with laparoscopic surgeries #12. Never smoker Plan: Patient is within the window for Remdesivir She will be started on an today Continue Decadron, continue Lovenox Continue COVID-19 vitamins We will follow her clinical course Obtain a follow-up inflammatory markers and d-dimer We'll monitor for worsening dyspnea with hypoxemia I performed a history & physical examination of the patient and discussed their management with my nurse practitioner, Leigh Johnson. I reviewed the nurse practitioner's note and agree with the documented findings and plan of care. Lung sounds are positive for diminished breath sounds throughout the lung grant. The findings and the impression was discussed with the patient. I attest to the documentation by the nurse practitioner. Time with Patient: Greater than 30
[2021-08-02] MEDS: SODIUM CHLORIDE 0.9% 1,000 ML IV SCH (14:30)
--- NOTE | 2021-08-02 14:35 | P.PN ---
Subjective Chart was reviewed. Patient was admitted due to worsening respiratory symptoms and hypoxia. She was diagnosed with COVID-19 with a home test about 4 days ago. She had recent brain aneurysm clipping on 07/23/27 at outside institution. Patient stated that her symptoms started about a week ago. She was supposed to go to ER to see monoclonal antibodies however due to hypoxia she was sent to the hospital. Objective - Vital Signs Vital signs: Vital Signs Temp 97.3 F L 08/02/21 08:00 Pulse 84 08/02/21 08:00 Resp 20 08/02/21 08:00 BP 120/72 08/02/21 08:00 Pulse Ox 89 L 08/02/21 08:00 Intake & Output 08/01/21 08/02/21 08/02/21 18:59 06:59 18:59 Output Total 300 Balance -300 Weight 100.698 kg Output: Urine 300 Other: Voiding Method External Catheter - Exam Awake alert oriented 3 Head and neck: No facial asymmetry anicteric sclera, no neck masses or JVD Lungs breath sounds present no wheezing no rhonchi Cardiovascular regular rhythm and rate Abdomen soft nontender nondistended Extremities no peripheral edema no cyanosis or well-perfused Neurological no focal deficits asterixis - Labs CBC & Chem 7: 08/02/21 05:45 08/02/21 05:45 Labs: Abnormal Lab Results - Last 24 Hours (Table) 08/02/21 08/02/21 08/02/21 Range/Units 05:45 05:45 07:17 Lymphocytes # 0.5 L (1.0-4.8) k/uL Sodium 135 L (137-145) mmol/L Carbon Dioxide 21 L (22-30) mmol/L Glucose 185 H (74-99) mg/dL POC Glucose (mg/dL) 176 H (75-99) mg/dL Calcium 8.3 L (8.4-10.2) mg/dL AST 52 H (14-36) U/L ALT 50 H (4-34) U/L Total Protein 6.2 L (6.3-8.2) g/dL Albumin 3.2 L (3.5-5.0) g/dL 08/02/21 Range/Units 11:59 Lymphocytes # (1.0-4.8) k/uL Sodium (137-145) mmol/L Carbon Dioxide (22-30) mmol/L Glucose (74-99) mg/dL POC Glucose (mg/dL) 176 H (75-99) mg/dL Calcium (8.4-10.2) mg/dL AST (14-36) U/L ALT (4-34) U/L Total Protein (6.3-8.2) g/dL Albumin (3.5-5.0) g/dL Assessment and Plan Plan: #COVID-19 pneumonitis with acute hypoxic respiratory failure Onset of symptoms 7 days prior to admission Chest x-ray: Bilateral pneumonia Current oxygen requirements: 4 L nasal cannula Pulmonary consultation, recommended treatment with Remdesevir, dexamethasone, multivitamin Bronchodilators, incentive spirometer, encourage out of bed, titrate oxygen DVT prophylaxis: Lovenox as imaging of her brain showed stable clipping of the aneurysm. Elevated d-dimer with CT of the chest showing pneumonia and no pulmonary embolus. Monitor inflammatory markers and d-dimer Patient may be at increased risk for thromboembolism and she is on estradiol at home #Cerebellar aneurysm status post recent clipping CT of the brain showing stable changes Patient will continue her usual home medications: Aspirin and Brilinta; patient refused statin #Hypothyroidism Continue home thyroid supplementation #Type 2 diabetes mellitus without long-term current use of insulin Patient will remain on diabetic diet and sliding scale #Obesity Status post gastric sleeve surgery Continue multivitamins #Depression Continue home medication, Lexapro
[2021-08-02 16:49] LABS: Glucose,Whole Blood 175 mg/dL (75-99)
[2021-08-02 20:19] LABS: Glucose,Whole Blood 173 mg/dL (75-99)
[2021-08-02] MEDS: ONDANSETRON 4 MG/2 ML VIAL IVP PRN (22:19)
[2021-08-02] MEDS: [UNRECOGNIZED DRUG - OTHER] PO SCH (22:20)
[2021-08-02] MEDS: ESTRADIOL PO SCH (22:20)
[2021-08-02] MEDS: OXYMETAZOLINE 0.05% NASL SPRAY 1 SPRAY BOTTLE NASAL SCH (22:20)
[2021-08-03] MEDS: THYROID, PORK 30 MG TAB PO SCH (05:52)
[2021-08-03 07:17] LABS: Glucose,Whole Blood 102 mg/dL (75-99)
[2021-08-03] MEDS: ENOXAPARIN 40 MG/0.4 ML SYRINGE SQ SCH (07:38)
[2021-08-03] MEDS: FERROUS SULFATE 325 MG TAB PO SCH (07:38)
[2021-08-03] MEDS: TICAGRELOR 90 MG TAB PO SCH ×2 (07:38→20:10)
[2021-08-03] MEDS: CYANOCOBALAMIN 500 MCG TAB PO SCH (07:38)
[2021-08-03] MEDS: ZINC SULFATE 220 MG CAP PO SCH (07:38)
[2021-08-03] MEDS: MULTIVITAMINS, THERA 1 EACH TAB PO SCH (07:38)
[2021-08-03] MEDS: ASPIRIN 81 MG PO SCH (07:39)
[2021-08-03] MEDS: PANTOPRAZOLE 40 MG TABLET PO SCH (07:39)
[2021-08-03] MEDS: CEVIMELINE 30 MG CAP PO SCH ×3 (07:39→20:10)
[2021-08-03] MEDS: LORATADINE 10 MG TAB PO SCH (07:39)
[2021-08-03] MEDS: ASCORBIC ACID 500 MG TAB PO SCH (07:39)
[2021-08-03] MEDS: MAGNESIUM PO SCH (07:40)
[2021-08-03] MEDS: DEXAMETHASONE SOD PHOSPHATE 10 MG/ML 1 ML VIAL IVP SCH (07:40)
[2021-08-03] MEDS: ESCITALOPRAM 10 MG TAB PO SCH (07:40)
[2021-08-03] MEDS: CALCIUM PO SCH (07:40)
[2021-08-03] MEDS: CHOLECALCIFEROL PO SCH (07:40)
[2021-08-03] MEDS: OXYMETAZOLINE 0.05% NASL SPRAY 1 SPRAY BOTTLE NASAL SCH ×2 (07:40→20:12)
[2021-08-03] MEDS: [UNRECOGNIZED DRUG - OTHER] PO SCH ×2 (07:41→20:12)
[2021-08-03] MEDS: ESTRADIOL PO SCH ×2 (07:41→20:12)
[2021-08-03] MEDS: TOPIRAMATE 25 MG TAB PO SCH ×2 (07:42→20:11)
[2021-08-03] MEDS: [UNRECOGNIZED DRUG - MIXTURE] PO SCH (07:42)
[2021-08-03] MEDS: PROGESTERONE MICRONIZED PO SCH ×3 (07:52→21:50)
[2021-08-03] MEDS: [UNRECOGNIZED DRUG - OTHER] PO SCH ×3 (07:52→21:50)
[2021-08-03] MEDS: ALBUTEROL HFA INHALER INHALATION SCH ×4 (08:25→21:31)
[2021-08-03 09:48] LABS: HCT 39.9 % (37.2-46.3); HGB 13.1 g/dL (12.0-15.0); MCHC 32.8 g/dL (32.0-37.0); MCV 88.5 fL (80.0-97.0); Mean Platelet Volume 8.8 fL (9.5-12.2); Platelet Count 326 X 10*3/uL (140-440); RBC 4.51 X 10*6/uL (4.10-5.20); RDW 14.4 % (11.5-14.5); WBC 12.32 X 10*3/uL (4.50-10.00)
--- NOTE | 2021-08-03 10:05 | P.PN ---
Subjective Chart was reviewed. Patient was admitted due to worsening respiratory symptoms and hypoxia. She was diagnosed with COVID-19 with a home test about 4 days ago. She had recent brain aneurysm clipping on 07/23/27 at outside institution. Patient stated that her symptoms started about a week ago. She was supposed to go to ER to see monoclonal antibodies however due to hypoxia she was sent to the hospital. This morning she is doing about the same comparing to yesterday. Oxygen requirement is about the same. Her nasal congestion is somewhat better. She denies any abdominal pain nausea or vomiting. She remains afebrile. Objective - Vital Signs Vital signs: Vital Signs Temp 97.4 F L 08/03/21 05:31 Pulse 64 08/03/21 05:31 Resp 16 08/03/21 05:31 BP 117/80 08/03/21 05:31 Pulse Ox 92 L 08/03/21 05:31 Intake & Output 08/02/21 08/03/21 08/03/21 18:59 06:59 18:59 Output Total 300 700 Balance -300 -700 Output: Urine 300 700 Other: Voiding Method External Catheter - Exam Awake alert oriented 3 Head and neck: No facial asymmetry anicteric sclera, no neck masses or JVD Lungs breath sounds present no wheezing no rhonchi Cardiovascular regular rhythm and rate Abdomen soft nontender nondistended Extremities no peripheral edema no cyanosis or well-perfused Neurological no focal deficits asterixis - Labs CBC & Chem 7: 08/03/21 06:18 08/02/21 05:45 Labs: Abnormal Lab Results - Last 24 Hours (Table) 08/02/21 08/02/21 08/02/21 Range/Units 11:59 16:48 20:17 WBC (4.50-10.00) X 10*3/uL MPV (9.5-12.2) fL POC Glucose (mg/dL) 176 H 175 H 173 H (75-99) mg/dL 08/03/21 08/03/21 Range/Units 06:18 07:16 WBC 12.32 H (4.50-10.00) X 10*3/uL MPV 8.8 L (9.5-12.2) fL POC Glucose (mg/dL) 102 H (75-99) mg/dL Assessment and Plan Plan: #COVID-19 pneumonitis with acute hypoxic respiratory failure Onset of symptoms 7 days prior to admission Chest x-ray: Bilateral pneumonia Current oxygen requirements: 4 L nasal cannula Pulmonary consultation, recommended treatment with Remdesevir, dexamethasone, multivitamin Bronchodilators, incentive spirometer, encourage out of bed, titrate oxygen DVT prophylaxis: Lovenox, as imaging of her brain showed stable clipping of the aneurysm. Elevated d-dimer with CTA of the chest showing pneumonia and no pulmonary embolus. Monitor inflammatory markers and d-dimer Patient may be at increased risk for thromboembolism and she is on estradiol at home #Cerebellar aneurysm status post recent clipping CT of the brain showing stable changes Patient will continue her usual home medications: Aspirin and Brilinta; patient refused statin #Hypothyroidism Continue home thyroid supplementation #Type 2 diabetes mellitus without long-term current use of insulin Patient will remain on diabetic diet and sliding scale #Obesity Status post gastric sleeve surgery Continue multivitamins #Depression Continue home medication, Lexapro DVT prophylaxis: Subcu Lovenox Full code Home medications reviewed
[2021-08-03 10:44] LABS: African American GFR (CKD) 113.9 (60.0-200.0); Albumin 3.1 g/dL (3.8-4.9); Albumin/Globulin Ratio 1.14 (1.60-3.17); Anion Gap 17.3 mmol/L (10.00-18.00); BUN/Creat Ratio 26.13 Ratio (12.00-20.00); Blood Urea Nitrogen 17.9 mg/dL (9.0-27.0); Calcium 8.1 mg/dL (8.7-10.3); Carbon Dioxide 16.4 mmol/L (20.0-27.5); Globulin 2.7 g/dL (1.6-3.3); Non-African American GFR(CKD) 98.2 (60.0-200.0); Potassium 4.5 mmol/L (3.5-5.5); Total Bilirubin 0.3 mg/dL (0.30-1.20); Total Protein 5.8 g/dL (6.2-8.2)
[2021-08-03 11:50] LABS: Glucose,Whole Blood 151 mg/dL (75-99)
--- NOTE | 2021-08-03 13:16 | P.PN ---
Subjective Progress Note Date: 08/03/21 56-year-old white female patient with past medical history morbid obesity status post gastric sleeve surgery, hyperlipidemia, sleep apnea on CPAP, thyroid cancer status post surgical resection and patient is on thyroid hormone replacement, history of total hysterectomy, hernia repair, bowel resection, and most recently brain aneurysm clipping on 07/23/2021. Patient came in to the emergency department on 08/01/2021 with complaints of worsening shortness of breath, weakness, cough. She reports symptom onset a week ago on Sunday on 07/26/2021. She was supposed to come into the emergency department for a scheduled monoclonal antibody infusion however in view of her hypoxia patient was seen and admitted to the hospital. She tested positive for COVID 19. Room air pulse ox was 80%, currently patient is requiring 5 L of oxygen, pulse ox is 89-93%, chest x-ray in the emergency department showed patchy densities in bilateral lungs, no evident pneumothorax or pleural effusion. EKG showed sinus tachycardia. Brain CT was done for the reason of headaches and history of aneurysm clipping, and showed age-related atrophic and chronic small vessel ischemic changes without acute intracranial process at this time, there were postoperative changes of aneurysm clipping. Admission blood work has been reviewed showing normal white count with the white blood cell count of 8.9, hemoglobin of 14.7, d-dimer was 1.11, INR was 0.9, electrolytes were within normal limits, sodium was 136, the rest of electrolytes were within normal limits, BUN is 18 creatinine 0.85, lactic acid was 1.3, ferritin level was 584, AST was 59, ALT was 40, alkaline phosphatase was 88, LDH was 1486, CRP was 20.4. Pro-calcitonin level was negative at 0.09. Patient states she is not vaccinated, and her and her granddaughter children are also symptomatic and tested positive for COVID-19. CT angiogram of the chest showed no evidence of acute pulmonary embolism, it did show bilateral multifocal groundglass opacities consistent with COVID-19 infection. Patient was started on Decadron 6 mg daily, prophylactic dose Lovenox 40 mg daily, COVID-19 vitamins On 08/03/2021 patient seen in follow-up on medical surgical floor. She is resting comfortably in bed, her work of breathing significantly improved on today's exam, she is less tachypneic, she is breathing quite comfortably, she still on 4 L of oxygen pulse ox is 95%, today's Remdesivir day 2 of treatment, she also continues on Decadron 6 mg daily, vitamins C, D and zinc, and prophylactic Lovenox 40 mg daily, she's had no acute events overnight, she has occasional cough, at times she is able to bring up some phlegm, no chest discomfort, lung sounds reveal some minimal bibasilar crackles, overall coarse breath sounds, but no wheezing. Vital signs have been stable. No fever or chills, she is tolerating oral intake. Today's labs have been reviewed. White blood cell count is 12.3, hemoglobin is 13.1, sodium is 140, potassium is 4.5, CO2 is 16, BUN is 17, creatinine 0.7, her lactic acid on admission was 1.3, her LFTs are relatively stable, follow-up inflammatory markers are pending. Objective - Vital Signs Vital signs: Vital Signs Temp 97.6 F 08/03/21 10:32 Pulse 68 08/03/21 10:32 Resp 16 08/03/21 10:32 BP 117/67 08/03/21 10:32 Pulse Ox 95 08/03/21 10:32 Intake & Output 08/02/21 08/03/21 08/03/21 18:59 06:59 18:59 Output Total 300 700 Balance -300 -700 Output: Urine 300 700 Other: Voiding Method External Catheter - Exam GENERAL EXAM: Alert, pleasant, 56-year-old white female, on the 4 L of oxygen with a pulse ox of 95% comfortable in no apparent distress. HEAD: Normocephalic/atraumatic. EYES: Normal reaction of pupils, equal size. Conjunctiva pink, sclera white. NOSE: Clear with pink turbinates. THROAT: No erythema or exudates. NECK: No masses, no JVD, no thyroid enlargement, no adenopathy. CHEST: No chest wall deformity. Symmetrical expansion. LUNGS: Equal air entry with bilateral crackles CVS: Regular rate and rhythm, normal S1 and S2, no gallops, no murmurs, no rubs ABDOMEN: Obese, Soft, nontender. No hepatosplenomegaly, normal bowel sounds, no guarding or rigidity. EXTREMITIES: No clubbing, no edema, no cyanosis, 2+ pulses and upper and lower extremities. MUSCULOSKELETAL: Muscle strength and tone normal. SPINE: No scoliosis or deformity SKIN: No rashes CENTRAL NERVOUS SYSTEM: Alert and oriented -3. No focal deficits, tone is normal in all 4 extremities. PSYCHIATRIC: Alert and oriented -3. Appropriate affect. Intact judgment and insight. - Labs CBC & Chem 7: 08/03/21 06:18 08/03/21 06:18 Labs: Abnormal Lab Results - Last 24 Hours (Table) 08/02/21 08/02/21 08/03/21 Range/Units 16:48 20:17 06:18 WBC 12.32 H (4.50-10.00) X 10*3/uL MPV 8.8 L (9.5-12.2) fL Carbon Dioxide (20.0-27.5) mmol/L BUN/Creatinine Ratio (12.00-20.00) Ratio Glucose (70-110) mg/dL POC Glucose (mg/dL) 175 H 173 H (75-99) mg/dL Calcium (8.7-10.3) mg/dL AST (13-35) U/L ALT (8-44) U/L Total Protein (6.2-8.2) g/dL Albumin (3.8-4.9) g/dL Albumin/Globulin Ratio (1.60-3.17) g/dL 08/03/21 08/03/21 08/03/21 Range/Units 06:18 07:16 11:49 WBC (4.50-10.00) X 10*3/uL MPV (9.5-12.2) fL Carbon Dioxide 16.4 L (20.0-27.5) mmol/L BUN/Creatinine Ratio 26.13 H (12.00-20.00) Ratio Glucose 111 H (70-110) mg/dL POC Glucose (mg/dL) 102 H 151 H (75-99) mg/dL Calcium 8.1 L (8.7-10.3) mg/dL AST 59 H (13-35) U/L ALT 65 H (8-44) U/L Total Protein 5.8 L (6.2-8.2) g/dL Albumin 3.1 L (3.8-4.9) g/dL Albumin/Globulin Ratio 1.14 L (1.60-3.17) g/dL Assessment and Plan Plan: Assessment: #1. Acute hypoxic respiratory failure related to acute COVID-19 pneumonia, with onset of symptoms 7 days prior to the presentation, and patient is within the window for Remdesivir which will be started today on 08/02/2021. #2. Recent history of brain aneurysm clipping on 07/23/2021, follow-up CT of the brain completed at the hospital at the time of admission showed age-related atrophic and chronic small vessel ischemic changes without acute intracranial process. Postoperative changes of aneurysm clipping were seen #3. Elevated inflammatory markers, related to acute COVID-19 pneumonia #4. Hyperlipidemia #5. Hypothyroidism #6. History of thyroid cancer status post surgical resection #7. Morbid obesity status post gastric sleeve surgery, current BMI is 38.1 kg/m #8. History of obstructive sleep apnea #9. Diabetes mellitus type 2, diet-controlled #10. GERD with previous history of hiatal hernia surgery #11. History of endometriosis, with laparoscopic surgeries #12. Never smoker Plan: Continue Remdesivir, today is day 2 of treatment Continue Decadron, continue Lovenox Continue COVID-19 vitamins Clinically patient looks better, she is breathing easier, less tachypneic, less work of breathing, Requiring same amount of oxygen, however O2 saturations are improved We will follow her clinical course Obtain a follow-up inflammatory markers and d-dimer We'll monitor for worsening dyspnea with hypoxemia I performed a history & physical examination of the patient and discussed their management with my nurse practitioner, Leigh Johnson. I reviewed the nurse practitioner's note and agree with the documented findings and plan of care. Lung sounds are positive for diminished breath sounds throughout the lung grant. The findings and the impression was discussed with the patient. I attest to the documentation by the nurse practitioner. Time with Patient: Less than 30
[2021-08-03] MEDS: REMDESIVIR 100 MG in SODIUM CHLORIDE 0.9% 250 ML IVPB SCH (14:12)
[2021-08-03 16:49] LABS: Glucose,Whole Blood 214 mg/dL (75-99)
[2021-08-03 21:10] LABS: Glucose,Whole Blood 134 mg/dL (75-99)
[2021-08-03] MEDS: INSULIN ASPART (NovoLOG) 100 UNIT/ML VIAL SQ SCH (21:43)
[2021-08-04] MEDS: ONDANSETRON 4 MG/2 ML VIAL IVP PRN ×2 (00:17→08:39)
[2021-08-04] MEDS: THYROID, PORK 30 MG TAB PO SCH (05:36)
[2021-08-04 07:27] LABS: Glucose,Whole Blood 83 mg/dL (75-99)
[2021-08-04] MEDS: CALCIUM PO SCH (08:06)
[2021-08-04] MEDS: MAGNESIUM PO SCH (08:06)
[2021-08-04] MEDS: CHOLECALCIFEROL PO SCH (08:06)
[2021-08-04] MEDS: CYANOCOBALAMIN 500 MCG TAB PO SCH (08:25)
[2021-08-04] MEDS: LORATADINE 10 MG TAB PO SCH ×2 (08:25→08:35)
[2021-08-04] MEDS: DEXAMETHASONE SOD PHOSPHATE 10 MG/ML 1 ML VIAL IVP SCH (08:25)
[2021-08-04] MEDS: ASPIRIN 81 MG PO SCH (08:35)
[2021-08-04] MEDS: ASCORBIC ACID 500 MG TAB PO SCH (08:35)
[2021-08-04] MEDS: FERROUS SULFATE 325 MG TAB PO SCH (08:35)
[2021-08-04] MEDS: ZINC SULFATE 220 MG CAP PO SCH (08:35)
[2021-08-04] MEDS: PANTOPRAZOLE 40 MG TABLET PO SCH (08:35)
[2021-08-04] MEDS: TICAGRELOR 90 MG TAB PO SCH ×2 (08:36→22:01)
[2021-08-04] MEDS: INSULIN ASPART (NovoLOG) 100 UNIT/ML VIAL SQ SCH ×4 (08:36→22:00)
[2021-08-04] MEDS: [UNRECOGNIZED DRUG - MIXTURE] PO SCH (08:37)
[2021-08-04] MEDS: CEVIMELINE 30 MG CAP PO SCH ×3 (08:37→22:01)
[2021-08-04] MEDS: TOPIRAMATE 25 MG TAB PO SCH ×2 (08:37→22:01)
[2021-08-04] MEDS: OXYMETAZOLINE 0.05% NASL SPRAY 1 SPRAY BOTTLE NASAL SCH ×2 (08:43→22:00)
[2021-08-04] MEDS: [UNRECOGNIZED DRUG - OTHER] PO SCH (08:44)
[2021-08-04] MEDS: ESTRADIOL PO SCH ×2 (08:44→22:00)
[2021-08-04] MEDS: PROGESTERONE MICRONIZED PO SCH (08:44)
[2021-08-04] MEDS: [UNRECOGNIZED DRUG - OTHER] PO SCH ×2 (08:44→22:00)
[2021-08-04] MEDS: MULTIVITAMINS, THERA 1 EACH TAB PO SCH (08:46)
[2021-08-04] MEDS: ESCITALOPRAM 10 MG TAB PO SCH (08:46)
[2021-08-04] MEDS: ENOXAPARIN 40 MG/0.4 ML SYRINGE SQ SCH (08:46)
--- NOTE | 2021-08-04 09:18 | P.PN ---
Subjective Chart was reviewed. Patient was admitted due to worsening respiratory symptoms and hypoxia. She was diagnosed with COVID-19 with a home test about 4 days ago. She had recent brain aneurysm clipping on 07/23/27 at outside institution. Patient stated that her symptoms started about a week ago. She was supposed to go to ER to see monoclonal antibodies however due to hypoxia she was sent to the hospital. T patient is doing about the same. She is stable oxygen supplementation. She reports still some dry cough and shortness of breath with only minimal improvement. No abdominal pain no headache or vision changes denies no vomiting. Objective - Vital Signs Vital signs: Vital Signs Temp 97.6 F 08/04/21 03:37 Pulse 76 08/04/21 06:00 Resp 18 08/04/21 03:37 BP 119/67 08/04/21 06:00 Pulse Ox 90 L 08/04/21 06:00 Intake & Output 08/03/21 08/04/21 08/04/21 18:59 06:59 18:59 Intake Total 200 Output Total 1200 Balance -1000 Intake: Oral 200 Output: Urine 1200 Other: Voiding Method External Catheter External Catheter - Exam Awake alert oriented 3 Head and neck: No facial asymmetry anicteric sclera, no neck masses or JVD Lungs breath sounds present no wheezing no rhonchi Cardiovascular regular rhythm and rate Abdomen soft nontender nondistended Extremities no peripheral edema no cyanosis or well-perfused Neurological no focal deficits asterixis - Labs CBC & Chem 7: 08/03/21 06:18 08/03/21 06:18 Labs: Abnormal Lab Results - Last 24 Hours (Table) 08/03/21 08/03/21 08/03/21 Range/Units 06:18 06:18 11:49 WBC 12.32 H (4.50-10.00) X 10*3/uL MPV 8.8 L (9.5-12.2) fL D-Dimer (<0.60) mg/L FEU Carbon Dioxide 16.4 L (20.0-27.5) mmol/L BUN/Creatinine Ratio 26.13 H (12.00-20.00) Ratio Glucose 111 H (70-110) mg/dL POC Glucose (mg/dL) 151 H (75-99) mg/dL Calcium 8.1 L (8.7-10.3) mg/dL AST 59 H (13-35) U/L ALT 65 H (8-44) U/L Total Protein 5.8 L (6.2-8.2) g/dL Albumin 3.1 L (3.8-4.9) g/dL Albumin/Globulin Ratio 1.14 L (1.60-3.17) g/dL 08/03/21 08/03/21 08/04/21 Range/Units 16:48 21:08 07:03 WBC (4.50-10.00) X 10*3/uL MPV (9.5-12.2) fL D-Dimer 3.48 H (<0.60) mg/L FEU Carbon Dioxide (20.0-27.5) mmol/L BUN/Creatinine Ratio (12.00-20.00) Ratio Glucose (70-110) mg/dL POC Glucose (mg/dL) 214 H 134 H (75-99) mg/dL Calcium (8.7-10.3) mg/dL AST (13-35) U/L ALT (8-44) U/L Total Protein (6.2-8.2) g/dL Albumin (3.8-4.9) g/dL Albumin/Globulin Ratio (1.60-3.17) g/dL Assessment and Plan Plan: #COVID-19 pneumonitis with acute hypoxic respiratory failure Onset of symptoms 7 days prior to admission Chest x-ray: Bilateral pneumonia Current oxygen requirements: 4 L nasal cannula Pulmonary consultation, recommended treatment with Remdesevir, dexamethasone, multivitamin Bronchodilators, incentive spirometer, encourage out of bed, titrate oxygen DVT prophylaxis: Lovenox, as imaging of her brain showed stable clipping of the aneurysm. Elevated d-dimer with CTA of the chest showing pneumonia and no pulmonary embolus. Monitor inflammatory markers and d-dimer Patient may be at increased risk for thromboembolism and she is on estradiol at home Monitor d-dimer. Obtain follow-up chest x-ray. #Cerebellar aneurysm status post recent clipping CT of the brain showing stable changes Patient will continue her usual home medications: Aspirin and Brilinta; patient refused statin #Hypothyroidism Continue home thyroid supplementation #Type 2 diabetes mellitus without long-term current use of insulin Patient will remain on diabetic diet and sliding scale #Obesity Status post gastric sleeve surgery Continue multivitamins #Depression Continue home medication, Lexapro DVT prophylaxis: Subcu Lovenox Full code Home medications reviewed
[2021-08-04] MEDS: ALBUTEROL HFA INHALER INHALATION SCH ×4 (09:45→20:45)
--- NOTE | 2021-08-04 10:54 | XR ---
EXAMINATION TYPE: XR chest 1V DATE OF EXAM: 08/04/2021 COMPARISON: 08/01/2021 HISTORY: Shortness of breath TECHNIQUE: Single frontal view of the chest is obtained. FINDINGS: Patchy perihilar and interstitial infiltrates are stable. Tiny bilateral pleural effusions . Heart size normal. No pneumothorax. Findings are similar to the prior exam. IMPRESSION: Stable bilateral infiltrate.
[2021-08-04 11:50] LABS: Glucose,Whole Blood 153 mg/dL (75-99)
[2021-08-04 12:30] LABS: C Reactive Protein 2.6 mg/dL (0.00-0.80)
--- NOTE | 2021-08-04 12:52 | P.PN ---
Subjective Progress Note Date: 08/04/21 56-year-old white female patient with past medical history morbid obesity status post gastric sleeve surgery, hyperlipidemia, sleep apnea on CPAP, thyroid cancer status post surgical resection and patient is on thyroid hormone replacement, history of total hysterectomy, hernia repair, bowel resection, and most recently brain aneurysm clipping on 07/23/2021. Patient came in to the emergency department on 08/01/2021 with complaints of worsening shortness of breath, weakness, cough. She reports symptom onset a week ago on Sunday on 07/26/2021. She was supposed to come into the emergency department for a scheduled monoclonal antibody infusion however in view of her hypoxia patient was seen and admitted to the hospital. She tested positive for COVID 19. Room air pulse ox was 80%, currently patient is requiring 5 L of oxygen, pulse ox is 89-93%, chest x-ray in the emergency department showed patchy densities in bilateral lungs, no evident pneumothorax or pleural effusion. EKG showed sinus tachycardia. Brain CT was done for the reason of headaches and history of aneurysm clipping, and showed age-related atrophic and chronic small vessel ischemic changes without acute intracranial process at this time, there were postoperative changes of aneurysm clipping. Admission blood work has been reviewed showing normal white count with the white blood cell count of 8.9, hemoglobin of 14.7, d-dimer was 1.11, INR was 0.9, electrolytes were within normal limits, sodium was 136, the rest of electrolytes were within normal limits, BUN is 18 creatinine 0.85, lactic acid was 1.3, ferritin level was 584, AST was 59, ALT was 40, alkaline phosphatase was 88, LDH was 1486, CRP was 20.4. Pro-calcitonin level was negative at 0.09. Patient states she is not vaccinated, and her and her granddaughter children are also symptomatic and tested positive for COVID-19. CT angiogram of the chest showed no evidence of acute pulmonary embolism, it did show bilateral multifocal groundglass opacities consistent with COVID-19 infection. Patient was started on Decadron 6 mg daily, prophylactic dose Lovenox 40 mg daily, COVID-19 vitamins On 08/03/2021 patient seen in follow-up on medical surgical floor. She is resting comfortably in bed, her work of breathing significantly improved on today's exam, she is less tachypneic, she is breathing quite comfortably, she still on 4 L of oxygen pulse ox is 95%, today's Remdesivir day 2 of treatment, she also continues on Decadron 6 mg daily, vitamins C, D and zinc, and prophylactic Lovenox 40 mg daily, she's had no acute events overnight, she has occasional cough, at times she is able to bring up some phlegm, no chest discomfort, lung sounds reveal some minimal bibasilar crackles, overall coarse breath sounds, but no wheezing. Vital signs have been stable. No fever or chills, she is tolerating oral intake. Today's labs have been reviewed. White blood cell count is 12.3, hemoglobin is 13.1, sodium is 140, potassium is 4.5, CO2 is 16, BUN is 17, creatinine 0.7, her lactic acid on admission was 1.3, her LFTs are relatively stable, follow-up inflammatory markers are pending. On 08/04/2021 patient seen in follow-up on medical surgical floor. She is awake and alert, she remains on Remdesivir, today is day 3 of treatment, continues on Decadron, prophylactic Lovenox, COVID-19 multivitamins. Breathing easier, has a congested cough. Today's follow-up chest x-ray shows stable bilateral infiltrates. Overall patient has been stable although mobility nunez she has not done a whole lot and has been on bedrest. Would like to see her get up out of bed and sit up in the chair and ambulate more today. Objective - Vital Signs Vital signs: Vital Signs Temp 97.7 F 08/04/21 10:00 Pulse 94 08/04/21 10:00 Resp 17 08/04/21 10:00 BP 111/75 08/04/21 10:00 Pulse Ox 90 L 08/04/21 10:00 Intake & Output 08/03/21 08/04/21 08/04/21 18:59 06:59 18:59 Intake Total 200 Output Total 1200 Balance -1000 Intake: Oral 200 Output: Urine 1200 Other: Voiding Method External Catheter External Catheter - Exam GENERAL EXAM: Alert, pleasant, 56-year-old white female, on the 4 L of oxygen with a pulse ox of 95% comfortable in no apparent distress. HEAD: Normocephalic/atraumatic. EYES: Normal reaction of pupils, equal size. Conjunctiva pink, sclera white. NOSE: Clear with pink turbinates. THROAT: No erythema or exudates. NECK: No masses, no JVD, no thyroid enlargement, no adenopathy. CHEST: No chest wall deformity. Symmetrical expansion. LUNGS: Equal air entry with bilateral crackles CVS: Regular rate and rhythm, normal S1 and S2, no gallops, no murmurs, no rubs ABDOMEN: Obese, Soft, nontender. No hepatosplenomegaly, normal bowel sounds, no guarding or rigidity. EXTREMITIES: No clubbing, no edema, no cyanosis, 2+ pulses and upper and lower extremities. MUSCULOSKELETAL: Muscle strength and tone normal. SPINE: No scoliosis or deformity SKIN: No rashes CENTRAL NERVOUS SYSTEM: Alert and oriented -3. No focal deficits, tone is normal in all 4 extremities. PSYCHIATRIC: Alert and oriented -3. Appropriate affect. Intact judgment and insight. - Labs CBC & Chem 7: 08/03/21 06:18 08/03/21 06:18 Labs: Abnormal Lab Results - Last 24 Hours (Table) 08/03/21 08/03/21 08/04/21 Range/Units 16:48 21:08 07:03 D-Dimer 3.48 H (<0.60) mg/L FEU POC Glucose (mg/dL) 214 H 134 H (75-99) mg/dL Lactate Dehydrogenase (120-246) U/L C-Reactive Protein (0.00-0.80) mg/dL 08/04/21 08/04/21 Range/Units 07:03 11:49 D-Dimer (<0.60) mg/L FEU POC Glucose (mg/dL) 153 H (75-99) mg/dL Lactate Dehydrogenase 378 H (120-246) U/L C-Reactive Protein 2.60 H (0.00-0.80) mg/dL Assessment and Plan Plan: Assessment: #1. Acute hypoxic respiratory failure related to acute COVID-19 pneumonia, with onset of symptoms 7 days prior to the presentation, and patient is within the window for Remdesivir which will be started today on 08/02/2021. #2. Recent history of brain aneurysm clipping on 07/23/2021, follow-up CT of the brain completed at the hospital at the time of admission showed age-related atrophic and chronic small vessel ischemic changes without acute intracranial process. Postoperative changes of aneurysm clipping were seen #3. Elevated inflammatory markers, related to acute COVID-19 pneumonia #4. Hyperlipidemia #5. Hypothyroidism #6. History of thyroid cancer status post surgical resection #7. Morbid obesity status post gastric sleeve surgery, current BMI is 38.1 kg/m #8. History of obstructive sleep apnea #9. Diabetes mellitus type 2, diet-controlled #10. GERD with previous history of hiatal hernia surgery #11. History of endometriosis, with laparoscopic surgeries #12. Never smoker Plan: Continue Remdesivir, today is day 3 of treatment Continue Decadron, continue Lovenox Continue COVID-19 vitamins Breathing has improved, still has a mildly congestive cough Wean FiO2 to maintain O2 saturations at or above 90% Patient needs encouragement to get up out of bed, sit up in a chair and ambulate If continues to improve and remains on minimal supplemental oxygen will consider discharge home in the next 24 hours I performed a history & physical examination of the patient and discussed their management with my nurse practitioner, Leigh Johnson. I reviewed the nurse practitioner's note and agree with the documented findings and plan of care. Lung sounds are positive for diminished breath sounds throughout the lung grant. The findings and the impression was discussed with the patient. I attest to the documentation by the nurse practitioner. Time with Patient: Less than 30
[2021-08-04] MEDS: REMDESIVIR 100 MG in SODIUM CHLORIDE 0.9% 250 ML IVPB SCH (13:13)
[2021-08-04 17:04] LABS: Glucose,Whole Blood 161 mg/dL (75-99)
[2021-08-04 20:31] LABS: Glucose,Whole Blood 108 mg/dL (75-99)
[2021-08-05] MEDS: THYROID, PORK 30 MG TAB PO SCH (06:00)
[2021-08-05 07:27] LABS: Glucose,Whole Blood 86 mg/dL (75-99)
[2021-08-05] MEDS: ALBUTEROL HFA INHALER INHALATION SCH ×4 (08:59→22:15)
[2021-08-05] MEDS: ENOXAPARIN 40 MG/0.4 ML SYRINGE SQ SCH (10:15)
[2021-08-05] MEDS: PANTOPRAZOLE 40 MG TABLET PO SCH (10:16)
[2021-08-05] MEDS: DEXAMETHASONE SOD PHOSPHATE 10 MG/ML 1 ML VIAL IVP SCH (10:16)
[2021-08-05] MEDS: CYANOCOBALAMIN 500 MCG TAB PO SCH (10:16)
[2021-08-05] MEDS: MULTIVITAMINS, THERA 1 EACH TAB PO SCH (10:16)
[2021-08-05] MEDS: FERROUS SULFATE 325 MG TAB PO SCH (10:16)
[2021-08-05] MEDS: TICAGRELOR 90 MG TAB PO SCH ×2 (10:16→20:46)
[2021-08-05] MEDS: INSULIN ASPART (NovoLOG) 100 UNIT/ML VIAL SQ SCH ×4 (10:17→20:47)
[2021-08-05] MEDS: LORATADINE 10 MG TAB PO SCH (10:17)
[2021-08-05] MEDS: ASPIRIN 81 MG PO SCH (10:17)
[2021-08-05] MEDS: ZINC SULFATE 220 MG CAP PO SCH (10:17)
[2021-08-05] MEDS: ASCORBIC ACID 500 MG TAB PO SCH (10:17)
[2021-08-05] MEDS: TOPIRAMATE 25 MG TAB PO SCH ×2 (10:17→20:46)
[2021-08-05] MEDS: CEVIMELINE 30 MG CAP PO SCH ×3 (10:17→20:46)
[2021-08-05] MEDS: ESCITALOPRAM 10 MG TAB PO SCH (10:17)
[2021-08-05] MEDS: ESTRADIOL PO SCH ×2 (10:20→20:47)
[2021-08-05] MEDS: [UNRECOGNIZED DRUG - OTHER] PO SCH ×2 (10:20→20:47)
[2021-08-05] MEDS: OXYMETAZOLINE 0.05% NASL SPRAY 1 SPRAY BOTTLE NASAL SCH ×2 (10:20→20:46)
[2021-08-05] MEDS: CALCIUM PO SCH (10:29)
[2021-08-05] MEDS: CHOLECALCIFEROL PO SCH (10:29)
[2021-08-05] MEDS: MAGNESIUM PO SCH (10:29)
[2021-08-05] MEDS: [UNRECOGNIZED DRUG - MIXTURE] PO SCH (10:30)
[2021-08-05 11:30] LABS: HCT 40.2 % (37.2-46.3); HGB 13.2 g/dL (12.0-15.0); MCH 29.3 pg (27.0-32.0); MCHC 32.8 g/dL (32.0-37.0); MCV 89.3 fL (80.0-97.0); Mean Platelet Volume 8.5 fL (9.5-12.2); Platelet Count 333 X 10*3/uL (140-440); RDW 14.6 % (11.5-14.5); WBC 6.36 X 10*3/uL (4.50-10.00)
[2021-08-05 11:42] LABS: Glucose,Whole Blood 104 mg/dL (75-99)
--- NOTE | 2021-08-05 11:44 | P.PN ---
Subjective Chart was reviewed. Patient was admitted due to worsening respiratory symptoms and hypoxia. She was diagnosed with COVID-19 with a home test about 4 days ago. She had recent brain aneurysm clipping on 07/23/27 at outside institution. Patient stated that her symptoms started about a week ago. She was supposed to go to ER to see monoclonal antibodies however due to hypoxia she was sent to the hospital. Patient reports that she is feeling much better today. Her breathing feels better. It's easier for her to get up out of bed and go to the bathroom. Appetite improving. Objective - Vital Signs Vital signs: Vital Signs Temp 97.5 F L 08/05/21 10:50 Pulse 94 08/05/21 10:50 Resp 16 08/05/21 10:50 BP 111/70 08/05/21 10:50 Pulse Ox 93 L 08/05/21 10:50 Intake & Output 08/04/21 08/05/21 08/05/21 18:59 06:59 18:59 Output Total 2900 Balance -2900 Output: Urine 2900 Other: Voiding Method External Catheter External Catheter External Catheter - Exam Awake alert oriented 3 Head and neck: No facial asymmetry anicteric sclera, no neck masses or JVD Lungs breath sounds present no wheezing no rhonchi Cardiovascular regular rhythm and rate Abdomen soft nontender nondistended Extremities no peripheral edema no cyanosis or well-perfused Neurological no focal deficits asterixis - Labs CBC & Chem 7: 08/05/21 07:06 08/03/21 06:18 Labs: Abnormal Lab Results - Last 24 Hours (Table) 08/04/21 08/04/21 08/04/21 Range/Units 07:03 11:49 17:03 RDW (11.5-14.5) % MPV (9.5-12.2) fL POC Glucose (mg/dL) 153 H 161 H (75-99) mg/dL Lactate Dehydrogenase 378 H (120-246) U/L C-Reactive Protein 2.60 H (0.00-0.80) mg/dL 08/04/21 08/05/21 08/05/21 Range/Units 20:30 07:06 11:36 RDW 14.6 H (11.5-14.5) % MPV 8.5 L (9.5-12.2) fL POC Glucose (mg/dL) 108 H 104 H (75-99) mg/dL Lactate Dehydrogenase (120-246) U/L C-Reactive Protein (0.00-0.80) mg/dL Assessment and Plan Plan: #COVID-19 pneumonitis with acute hypoxic respiratory failure Onset of symptoms 7 days prior to admission Chest x-ray: Bilateral pneumonia Current oxygen requirements: 4 L nasal cannula Pulmonary consultation, recommended treatment with Remdesevir, dexamethasone, multivitamin Bronchodilators, incentive spirometer, encourage out of bed, titrate oxygen DVT prophylaxis: Lovenox, as imaging of her brain showed stable clipping of the aneurysm. Elevated d-dimer with CTA of the chest showing pneumonia and no pulmonary embolus. Monitor inflammatory markers and d-dimer Patient may be at increased risk for thromboembolism and she is on estradiol at home Monitor d-dimer. Obtain follow-up chest x-ray. #Cerebellar aneurysm status post recent clipping CT of the brain showing stable changes Patient will continue her usual home medications: Aspirin and Brilinta; patient refused statin #Hypothyroidism Continue home thyroid supplementation #Type 2 diabetes mellitus without long-term current use of insulin Patient will remain on diabetic diet and sliding scale #Obesity Status post gastric sleeve surgery Continue multivitamins #Depression Continue home medication, Lexapro DVT prophylaxis: Subcu Lovenox Full code Home medications reviewed
[2021-08-05 12:22] LABS: C Reactive Protein 5.7 mg/dL (0.00-0.80)
[2021-08-05] MEDS: REMDESIVIR 100 MG in SODIUM CHLORIDE 0.9% 250 ML IVPB SCH (12:33)
--- NOTE | 2021-08-05 12:36 | P.PN ---
Subjective Progress Note Date: 08/05/21 56-year-old white female patient with past medical history morbid obesity status post gastric sleeve surgery, hyperlipidemia, sleep apnea on CPAP, thyroid cancer status post surgical resection and patient is on thyroid hormone replacement, history of total hysterectomy, hernia repair, bowel resection, and most recently brain aneurysm clipping on 07/23/2021. Patient came in to the emergency department on 08/01/2021 with complaints of worsening shortness of breath, weakness, cough. She reports symptom onset a week ago on Sunday on 07/26/2021. She was supposed to come into the emergency department for a scheduled monoclonal antibody infusion however in view of her hypoxia patient was seen and admitted to the hospital. She tested positive for COVID 19. Room air pulse ox was 80%, currently patient is requiring 5 L of oxygen, pulse ox is 89-93%, chest x-ray in the emergency department showed patchy densities in bilateral lungs, no evident pneumothorax or pleural effusion. EKG showed sinus tachycardia. Brain CT was done for the reason of headaches and history of aneurysm clipping, and showed age-related atrophic and chronic small vessel ischemic changes without acute intracranial process at this time, there were postoperative changes of aneurysm clipping. Admission blood work has been reviewed showing normal white count with the white blood cell count of 8.9, hemoglobin of 14.7, d-dimer was 1.11, INR was 0.9, electrolytes were within normal limits, sodium was 136, the rest of electrolytes were within normal limits, BUN is 18 creatinine 0.85, lactic acid was 1.3, ferritin level was 584, AST was 59, ALT was 40, alkaline phosphatase was 88, LDH was 1486, CRP was 20.4. Pro-calcitonin level was negative at 0.09. Patient states she is not vaccinated, and her and her granddaughter children are also symptomatic and tested positive for COVID-19. CT angiogram of the chest showed no evidence of acute pulmonary embolism, it did show bilateral multifocal groundglass opacities consistent with COVID-19 infection. Patient was started on Decadron 6 mg daily, prophylactic dose Lovenox 40 mg daily, COVID-19 vitamins On 08/03/2021 patient seen in follow-up on medical surgical floor. She is resting comfortably in bed, her work of breathing significantly improved on today's exam, she is less tachypneic, she is breathing quite comfortably, she still on 4 L of oxygen pulse ox is 95%, today's Remdesivir day 2 of treatment, she also continues on Decadron 6 mg daily, vitamins C, D and zinc, and prophylactic Lovenox 40 mg daily, she's had no acute events overnight, she has occasional cough, at times she is able to bring up some phlegm, no chest discomfort, lung sounds reveal some minimal bibasilar crackles, overall coarse breath sounds, but no wheezing. Vital signs have been stable. No fever or chills, she is tolerating oral intake. Today's labs have been reviewed. White blood cell count is 12.3, hemoglobin is 13.1, sodium is 140, potassium is 4.5, CO2 is 16, BUN is 17, creatinine 0.7, her lactic acid on admission was 1.3, her LFTs are relatively stable, follow-up inflammatory markers are pending. On 08/04/2021 patient seen in follow-up on medical surgical floor. She is awake and alert, she remains on Remdesivir, today is day 3 of treatment, continues on Decadron, prophylactic Lovenox, COVID-19 multivitamins. Breathing easier, has a congested cough. Today's follow-up chest x-ray shows stable bilateral infiltrates. Overall patient has been stable although mobility nunez she has not done a whole lot and has been on bedrest. Would like to see her get up out of bed and sit up in the chair and ambulate more today. On 08/05/2021 patient seen in follow-up on medical surgical floor, patient had been on 4-5 L of oxygen, this morning her pulse ox was 90-92% on 5 L, stable in terms of breathing, with some exertional dyspnea, overall clinically improved since admission, no fever or chills. Patient was being assisted up out of bed to go and sit in the recliner when she had episode of desaturation, panic attack, she was placed on high flow nasal cannula and a nonrebreather mask. She is sitting in a recliner, she still has a persistent cough, and diffuse coarse crackles at bilateral mid to lower lungs. Otherwise she states she feels good. He remains on Decadron 6 mg daily, today is day 4 of Remdesivir treatment, and she is on prophylactic Lovenox in addition to COVID-19 vitamins. Objective - Vital Signs Vital signs: Vital Signs Temp 97.5 F L 08/05/21 10:50 Pulse 94 08/05/21 10:50 Resp 16 08/05/21 10:50 BP 111/70 08/05/21 10:50 Pulse Ox 93 L 08/05/21 10:50 Intake & Output 08/04/21 08/05/21 08/05/21 18:59 06:59 18:59 Output Total 2900 Balance -2900 Output: Urine 2900 Other: Voiding Method External Catheter External Catheter External Catheter - Exam GENERAL EXAM: Alert, pleasant, 56-year-old white female, on the 6 L of oxygen with a nonrebreather mask comfortable in no apparent distress. HEAD: Normocephalic/atraumatic. EYES: Normal reaction of pupils, equal size. Conjunctiva pink, sclera white. NOSE: Clear with pink turbinates. THROAT: No erythema or exudates. NECK: No masses, no JVD, no thyroid enlargement, no adenopathy. CHEST: No chest wall deformity. Symmetrical expansion. LUNGS: Equal air entry with bilateral crackles CVS: Regular rate and rhythm, normal S1 and S2, no gallops, no murmurs, no rubs ABDOMEN: Obese, Soft, nontender. No hepatosplenomegaly, normal bowel sounds, no guarding or rigidity. EXTREMITIES: No clubbing, no edema, no cyanosis, 2+ pulses and upper and lower extremities. MUSCULOSKELETAL: Muscle strength and tone normal. SPINE: No scoliosis or deformity SKIN: No rashes CENTRAL NERVOUS SYSTEM: Alert and oriented -3. No focal deficits, tone is normal in all 4 extremities. PSYCHIATRIC: Alert and oriented -3. Appropriate affect. Intact judgment and insight. - Labs CBC & Chem 7: 08/05/21 07:06 08/03/21 06:18 Labs: Abnormal Lab Results - Last 24 Hours (Table) 08/04/21 08/04/21 08/05/21 Range/Units 17:03 20:30 07:06 RDW 14.6 H (11.5-14.5) % MPV 8.5 L (9.5-12.2) fL POC Glucose (mg/dL) 161 H 108 H (75-99) mg/dL C-Reactive Protein (0.00-0.80) mg/dL 08/05/21 08/05/21 Range/Units 07:06 11:36 RDW (11.5-14.5) % MPV (9.5-12.2) fL POC Glucose (mg/dL) 104 H (75-99) mg/dL C-Reactive Protein 5.70 H (0.00-0.80) mg/dL Assessment and Plan Plan: Assessment: #1. Acute hypoxic respiratory failure related to acute COVID-19 pneumonia, with onset of symptoms 7 days prior to the presentation, and patient is within the window for Remdesivir which will be started today on 08/02/2021. #2. Recent history of brain aneurysm clipping on 07/23/2021, follow-up CT of the brain completed at the hospital at the time of admission showed age-related atrophic and chronic small vessel ischemic changes without acute intracranial process. Postoperative changes of aneurysm clipping were seen #3. Elevated inflammatory markers, related to acute COVID-19 pneumonia #4. Hyperlipidemia #5. Hypothyroidism #6. History of thyroid cancer status post surgical resection #7. Morbid obesity status post gastric sleeve surgery, current BMI is 38.1 kg/m #8. History of obstructive sleep apnea #9. Diabetes mellitus type 2, diet-controlled #10. GERD with previous history of hiatal hernia surgery #11. History of endometriosis, with laparoscopic surgeries #12. Never smoker Plan: Patient had episode of desaturation with exertion get up in the chair FiO2 requirements had increased to 6 L per high flow nasal cannula and nonrebreather mask We'll place the patient on high flow nasal cannula and wean FiO2 back down Overall states she is improving, she feels good but still has exertional dyspnea, still coughing, and exertional hypoxia Continue Remdesivir, today is day 4 of treatment Continue Decadron, continue Lovenox Continue COVID-19 vitamins Will comtomie to monitor her clinical course I performed a history & physical examination of the patient and discussed their management with my nurse practitioner, Leigh Johnson. I reviewed the nurse practitioner's note and agree with the documented findings and plan of care. Lung sounds are positive for diminished breath sounds throughout the lung grant. The findings and the impression was discussed with the patient. I attest to the documentation by the nurse practitioner. Time with Patient: Less than 30
[2021-08-05 12:45] LABS: African American GFR (CKD) 114.6 (60.0-200.0); Albumin 3.1 g/dL (3.8-4.9); Albumin/Globulin Ratio 1.21 (1.60-3.17); Anion Gap 11.7 mmol/L (10.00-18.00); BUN/Creat Ratio 27.23 Ratio (12.00-20.00); Blood Urea Nitrogen 18.3 mg/dL (9.0-27.0); Calcium 8.6 mg/dL (8.7-10.3); Carbon Dioxide 20.5 mmol/L (20.0-27.5); Globulin 2.6 g/dL (1.6-3.3); Non-African American GFR(CKD) 98.9 (60.0-200.0); Potassium 4.3 mmol/L (3.5-5.5); Total Bilirubin 0.4 mg/dL (0.30-1.20); Total Protein 5.7 g/dL (6.2-8.2)
[2021-08-05 17:08] LABS: Glucose,Whole Blood 229 mg/dL (75-99)
[2021-08-05 20:23] LABS: Glucose,Whole Blood 168 mg/dL (75-99)
[2021-08-06] MEDS: THYROID, PORK 30 MG TAB PO SCH (05:47)
[2021-08-06 07:07] LABS: Glucose,Whole Blood 89 mg/dL (75-99)
[2021-08-06] MEDS: ALBUTEROL HFA INHALER INHALATION SCH ×4 (07:29→20:04)
[2021-08-06] MEDS: INSULIN ASPART (NovoLOG) 100 UNIT/ML VIAL SQ SCH ×4 (07:48→20:44)
[2021-08-06] MEDS: MAGNESIUM PO SCH (07:49)
[2021-08-06] MEDS: CALCIUM PO SCH (07:49)
[2021-08-06] MEDS: CHOLECALCIFEROL PO SCH (07:49)
[2021-08-06] MEDS: ASCORBIC ACID 500 MG TAB PO SCH (07:51)
[2021-08-06] MEDS: TOPIRAMATE 25 MG TAB PO SCH ×2 (07:51→20:43)
[2021-08-06] MEDS: ENOXAPARIN 40 MG/0.4 ML SYRINGE SQ SCH ×2 (07:52→20:44)
[2021-08-06] MEDS: LORATADINE 10 MG TAB PO SCH (07:52)
[2021-08-06] MEDS: ZINC SULFATE 220 MG CAP PO SCH (07:53)
[2021-08-06] MEDS: ESCITALOPRAM 10 MG TAB PO SCH (07:53)
[2021-08-06] MEDS: ASPIRIN 81 MG PO SCH (07:53)
[2021-08-06] MEDS: ACETAMINOPHEN TAB 325 MG TAB PO PRN (07:53)
[2021-08-06] MEDS: CYANOCOBALAMIN 500 MCG TAB PO SCH (07:53)
[2021-08-06] MEDS: FERROUS SULFATE 325 MG TAB PO SCH (07:54)
[2021-08-06] MEDS: CEVIMELINE 30 MG CAP PO SCH ×3 (07:54→20:43)
[2021-08-06] MEDS: DEXAMETHASONE SOD PHOSPHATE 10 MG/ML 1 ML VIAL IVP SCH (07:54)
[2021-08-06] MEDS: ESTRADIOL PO SCH ×2 (07:55→20:44)
[2021-08-06] MEDS: [UNRECOGNIZED DRUG - OTHER] PO SCH ×2 (07:55→20:44)
[2021-08-06] MEDS: TICAGRELOR 90 MG TAB PO SCH ×2 (07:55→20:44)
[2021-08-06] MEDS: [UNRECOGNIZED DRUG - MIXTURE] PO SCH (07:55)
[2021-08-06] MEDS: MULTIVITAMINS, THERA 1 EACH TAB PO SCH (07:55)
[2021-08-06] MEDS: PANTOPRAZOLE 40 MG TABLET PO SCH (07:56)
--- NOTE | 2021-08-06 08:48 | XR ---
EXAMINATION TYPE: XR chest 1V portable DATE OF EXAM: 08/06/2021 COMPARISON: Chest x-ray 08/04/2021 HISTORY: Cough TECHNIQUE: Single frontal view of the chest is obtained. FINDINGS: Bilateral airspace disease is again noted. No evident pneumothorax or pleural effusion. Ca rdiac mediastinal silhouette is stable. Bones are unchanged. IMPRESSION: Findings are similar to prior, correlate for pneumonia, there may be some slight interva l improvement in aeration although there are differences in technique
[2021-08-06 10:59] LABS: Basophils % (A) 0 %; Eosinophils % (A) 0 %; HCT 41.6 % (34.0-46.0); HGB 13.7 gm/dL (11.4-16.0); Lymphocytes # (A) 0.7 k/uL (1.0-4.8); Lymphocytes % (A) 8 %; MCHC 32.8 g/dL (31.0-37.0); MCV 91.6 fL (80.0-100.0); Mean Platelet Volume 6.9; Monocytes # (A) 0.4 k/uL (0-1.0); Monocytes % (A) 4 %; Neutrophils # (A) 7.1 k/uL (1.3-7.7); Neutrophils % (A) 86 %; Platelet Count 437 k/uL (150-450); RBC 4.54 m/uL (3.80-5.40); RDW 13.7 % (11.5-15.5); WBC 8.2 k/uL (3.8-10.6)
[2021-08-06 11:10] LABS: ALT 106 U/L (4-34); AST 63 U/L (14-36); African American GFR (CKD) >90 (>60 ml/min/1.73 sqM); Albumin 2.9 g/dL (3.5-5.0); Alkaline Phosphatase 81 U/L (38-126); Anion Gap 10 mmol/L; Blood Urea Nitrogen 21 mg/dL (7-17); C Reactive Protein 4.1 mg/dL (<1.0); Calcium 8.4 mg/dL (8.4-10.2); Carbon Dioxide 19 mmol/L (22-30); Chloride 105 mmol/L (98-107); Globulin 2.8 g/dL; Glucose 185 mg/dL (74-99); Non-African American GFR(CKD) 85 (>60 ml/min/1.73 sqM); Potassium 3.8 mmol/L (3.5-5.1); Sodium 134 mmol/L (137-145); Total Bilirubin 0.5 mg/dL (0.2-1.3); Total Protein 5.7 g/dL (6.3-8.2)
[2021-08-06 12:02] LABS: Glucose,Whole Blood 182 mg/dL (75-99)
[2021-08-06] MEDS ORDERED: BUMETANIDE 0.25 MG/ML 10 ML VIAL IV ONE (12:15)
--- NOTE | 2021-08-06 12:15 | P.PN ---
Subjective Chart was reviewed. Patient was admitted due to worsening respiratory symptoms and hypoxia. She was diagnosed with COVID-19 with a home test about 4 days ago. She had recent brain aneurysm clipping on 07/23/27 at outside institution. Patient stated that her symptoms started about a week ago. She was supposed to go to ER to see monoclonal antibodies however due to hypoxia she was sent to the hospital. Subjectively, patient continues to feel better, she feeling that her breathing is much better. However had an episode of desaturation with activity; she is placed on high flow at 8 L with a plan to continue to wean oxygen down. No ab dominal pain chest pain nausea or vomiting. Objective - Vital Signs Vital signs: Vital Signs Temp 97.5 F L 08/06/21 09:48 Pulse 70 08/06/21 09:48 Resp 17 08/06/21 09:48 BP 100/66 08/06/21 09:48 Pulse Ox 95 08/06/21 09:48 Intake & Output 08/05/21 08/06/21 08/06/21 18:59 06:59 18:59 Output Total 1 1 Balance -1 -1 Output: Stool 1 1 Other: Voiding Method External Catheter External Catheter # Voids 3 1 # Bowel Movements 0 - Exam Awake alert oriented 3 Head and neck: No facial asymmetry anicteric sclera, no neck masses or JVD Lungs breath sounds present no wheezing no rhonchi Cardiovascular regular rhythm and rate Abdomen soft nontender nondistended Extremities no peripheral edema no cyanosis or well-perfused Neurological no focal deficits asterixis - Labs CBC & Chem 7: 08/06/21 09:34 08/06/21 09:34 Labs: Abnormal Lab Results - Last 24 Hours (Table) 08/05/21 08/05/21 08/05/21 Range/Units 07:06 16:57 20:20 Lymphocytes # (1.0-4.8) k/uL D-Dimer (<0.60) mg/L FEU Sodium (137-145) mmol/L Carbon Dioxide (22-30) mmol/L BUN (7-17) mg/dL BUN/Creatinine Ratio 27.23 H (12.00-20.00) Ratio Glucose (74-99) mg/dL POC Glucose (mg/dL) 229 H 168 H (75-99) mg/dL Calcium 8.6 L (8.7-10.3) mg/dL AST 53 H (13-35) U/L ALT 69 H (8-44) U/L C-Reactive Protein 5.70 H (0.00-0.80) mg/dL Total Protein 5.7 L (6.2-8.2) g/dL Albumin 3.1 L (3.8-4.9) g/dL Albumin/Globulin Ratio 1.21 L (1.60-3.17) g/dL 08/06/21 08/06/21 08/06/21 Range/Units 09:34 09:34 09:34 Lymphocytes # 0.7 L (1.0-4.8) k/uL D-Dimer 7.14 H (<0.60) mg/L FEU Sodium 134 L (137-145) mmol/L Carbon Dioxide 19 L (22-30) mmol/L BUN 21 H (7-17) mg/dL BUN/Creatinine Ratio (12.00-20.00) Ratio Glucose 185 H (74-99) mg/dL POC Glucose (mg/dL) (75-99) mg/dL Calcium (8.7-10.3) mg/dL AST 63 H (13-35) U/L ALT 106 H (8-44) U/L C-Reactive Protein 4.1 H (0.00-0.80) mg/dL Total Protein 5.7 L (6.2-8.2) g/dL Albumin 2.9 L (3.8-4.9) g/dL Albumin/Globulin Ratio (1.60-3.17) g/dL 08/06/21 Range/Units 11:59 Lymphocytes # (1.0-4.8) k/uL D-Dimer (<0.60) mg/L FEU Sodium (137-145) mmol/L Carbon Dioxide (22-30) mmol/L BUN (7-17) mg/dL BUN/Creatinine Ratio (12.00-20.00) Ratio Glucose (74-99) mg/dL POC Glucose (mg/dL) 182 H (75-99) mg/dL Calcium (8.7-10.3) mg/dL AST (13-35) U/L ALT (8-44) U/L C-Reactive Protein (0.00-0.80) mg/dL Total Protein (6.2-8.2) g/dL Albumin (3.8-4.9) g/dL Albumin/Globulin Ratio (1.60-3.17) g/dL Assessment and Plan Plan: #COVID-19 pneumonitis with acute hypoxic respiratory failure Onset of symptoms 7 days prior to admission Chest x-ray: Bilateral pneumonia Current oxygen requirements: 8 L nasal cannula Pulmonary following Remdesevir, dexamethasone, multivitamin Bronchodilators, incentive spirometer, encourage out of bed, titrate oxygen Clinically and subjectively continued to improve, continued to encourage out of bed, incentive spirometer and wean oxygen down We'll give 1 dose of Bumex today DVT prophylaxis: Lovenox, as imaging of her brain showed stable clipping of the aneurysm. Elevated d-dimer with CTA of the chest showing pneumonia and no pulmonary embolus. Monitor inflammatory markers and d-dimer Patient may be at increased risk for thromboembolism and she is on estradiol at home Monitor d-dimer. Obtain follow-up chest x-ray. #Cerebellar aneurysm status post recent clipping CT of the brain showing stable changes Patient will continue her usual home medications: Aspirin and Brilinta; patient refused statin #Hypothyroidism Continue home thyroid supplementation #Type 2 diabetes mellitus without long-term current use of insulin Patient will remain on diabetic diet and sliding scale #Obesity Status post gastric sleeve surgery Continue multivitamins #Depression Continue home medication, Lexapro DVT prophylaxis: Subcu Lovenox Full code Home medications reviewed
[2021-08-06] MEDS: REMDESIVIR 100 MG in SODIUM CHLORIDE 0.9% 250 ML IVPB SCH (13:02)
[2021-08-06 16:37] LABS: Glucose,Whole Blood 238 mg/dL (75-99)
--- NOTE | 2021-08-06 17:45 | P.PN ---
Subjective Progress Note Date: 08/06/21 56-year-old white female patient with past medical history morbid obesity status post gastric sleeve surgery, hyperlipidemia, sleep apnea on CPAP, thyroid cancer status post surgical resection and patient is on thyroid hormone replacement, history of total hysterectomy, hernia repair, bowel resection, and most recently brain aneurysm clipping on 07/23/2021. Patient came in to the emergency department on 08/01/2021 with complaints of worsening shortness of breath, weakness, cough. She reports symptom onset a week ago on Sunday on 07/26/2021. She was supposed to come into the emergency department for a scheduled monoclonal antibody infusion however in view of her hypoxia patient was seen and admitted to the hospital. She tested positive for COVID 19. Room air pulse ox was 80%, currently patient is requiring 5 L of oxygen, pulse ox is 89-93%, chest x-ray in the emergency department showed patchy densities in bilateral lungs, no evident pneumothorax or pleural effusion. EKG showed sinus tachycardia. Brain CT was done for the reason of headaches and history of aneurysm clipping, and showed age-related atrophic and chronic small vessel ischemic changes without acute intracranial process at this time, there were postoperative changes of aneurysm clipping. Admission blood work has been reviewed showing normal white count with the white blood cell count of 8.9, hemoglobin of 14.7, d-dimer was 1.11, INR was 0.9, electrolytes were within normal limits, sodium was 136, the rest of electrolytes were within normal limits, BUN is 18 creatinine 0.85, lactic acid was 1.3, ferritin level was 584, AST was 59, ALT was 40, alkaline phosphatase was 88, LDH was 1486, CRP was 20.4. Pro-calcitonin level was negative at 0.09. Patient states she is not vaccinated, and her and her granddaughter children are also symptomatic and tested positive for COVID-19. CT angiogram of the chest showed no evidence of acute pulmonary embolism, it did show bilateral multifocal groundglass opacities consistent with COVID-19 infection. Patient was started on Decadron 6 mg daily, prophylactic dose Lovenox 40 mg daily, COVID-19 vitamins On 08/03/2021 patient seen in follow-up on medical surgical floor. She is resting comfortably in bed, her work of breathing significantly improved on today's exam, she is less tachypneic, she is breathing quite comfortably, she still on 4 L of oxygen pulse ox is 95%, today's Remdesivir day 2 of treatment, she also continues on Decadron 6 mg daily, vitamins C, D and zinc, and prophylactic Lovenox 40 mg daily, she's had no acute events overnight, she has occasional cough, at times she is able to bring up some phlegm, no chest discomfort, lung sounds reveal some minimal bibasilar crackles, overall coarse breath sounds, but no wheezing. Vital signs have been stable. No fever or chills, she is tolerating oral intake. Today's labs have been reviewed. White blood cell count is 12.3, hemoglobin is 13.1, sodium is 140, potassium is 4.5, CO2 is 16, BUN is 17, creatinine 0.7, her lactic acid on admission was 1.3, her LFTs are relatively stable, follow-up inflammatory markers are pending. On 08/04/2021 patient seen in follow-up on medical surgical floor. She is awake and alert, she remains on Remdesivir, today is day 3 of treatment, continues on Decadron, prophylactic Lovenox, COVID-19 multivitamins. Breathing easier, has a congested cough. Today's follow-up chest x-ray shows stable bilateral infiltrates. Overall patient has been stable although mobility nunez she has not done a whole lot and has been on bedrest. Would like to see her get up out of bed and sit up in the chair and ambulate more today. On 08/05/2021 patient seen in follow-up on medical surgical floor, patient had been on 4-5 L of oxygen, this morning her pulse ox was 90-92% on 5 L, stable in terms of breathing, with some exertional dyspnea, overall clinically improved since admission, no fever or chills. Patient was being assisted up out of bed to go and sit in the recliner when she had episode of desaturation, panic attack, she was placed on high flow nasal cannula and a nonrebreather mask. She is sitting in a recliner, she still has a persistent cough, and diffuse coarse crackles at bilateral mid to lower lungs. Otherwise she states she feels good. He remains on Decadron 6 mg daily, today is day 4 of Remdesivir treatment, and she is on prophylactic Lovenox in addition to COVID-19 vitamins. Patient is seen today 08/06/2021 in follow-up on the regular medical floor. She is currently sitting up in a chair at the bedside. Feeling quite a bit better. She is on 8 L high flow nasal cannula containing O2 saturations in the mid 90s. She's afebrile. Hemodynamically stable. His x-ray findings are similar with bilateral airspace disease. No pneumothorax. No effusions. White count 8.2. Hemoglobin 13.7. Lymphocytes 0.7. D-dimer 7.14. Sodium 134. Potassium 3.8. Creatinine of 0.79. AST 63. ALT 106. C-reactive protein 4.1. She is c ontinued on Lovenox, Decadron, vitamin supplements. She completed Remdesivir today. Objective - Vital Signs Vital signs: Vital Signs Temp 97.1 F L 08/06/21 13:48 Pulse 95 08/06/21 13:48 Resp 18 08/06/21 13:48 BP 105/70 08/06/21 13:48 Pulse Ox 97 08/06/21 13:48 Intake & Output 08/05/21 08/06/21 08/06/21 18:59 06:59 18:59 Intake Total 1250 Output Total 1 1 Balance -1 -1 1250 Intake: Intake, IV Titration 250 Amount Remdesivir 100 mg In 250 Sodium Chloride 0.9% 250 ml @ 250 mls/hr IVPB DAILY@1300 [facility] Rx#: [id number] Oral 1000 Output: Stool 1 1 Other: Voiding Method External Catheter External Catheter # Voids 3 1 3 # Bowel Movements 0 - Exam GENERAL EXAM: Alert, very pleasant 56-year-old female on 8 L nasal cannula, up in a chair at the bedside, fairly comfortable in no apparent distress. HEAD: Normocephalic. EYES: Normal reaction of pupils, equal size. NOSE: Clear with pink turbinates. THROAT: No erythema or exudates. NECK: No masses, no JVD. CHEST: No chest wall deformity. LUNGS: Equal air entry with coarse crackles in the bases. CVS: S1 and S2 normal with no audible murmur, regular rhythm. ABDOMEN: No hepatosplenomegaly, normal bowel sounds, no guarding or rigidity. SPINE: No scoliosis or deformity SKIN: No rashes CENTRAL NERVOUS SYSTEM: No focal deficits, tone is normal in all 4 extremities. EXTREMITIES: There is no peripheral edema. No clubbing, no cyanosis. Peripheral pulses are intact. - Labs CBC & Chem 7: 08/06/21 09:34 08/06/21 09:34 Labs: Abnormal Lab Results - Last 24 Hours (Table) 08/05/21 08/06/21 08/06/21 Range/Units 20:20 09:34 09:34 Lymphocytes # 0.7 L (1.0-4.8) k/uL D-Dimer 7.14 H (<0.60) mg/L FEU Sodium (137-145) mmol/L Carbon Dioxide (22-30) mmol/L BUN (7-17) mg/dL Glucose (74-99) mg/dL POC Glucose (mg/dL) 168 H (75-99) mg/dL AST (14-36) U/L ALT (4-34) U/L C-Reactive Protein (<1.0) mg/dL Total Protein (6.3-8.2) g/dL Albumin (3.5-5.0) g/dL 08/06/21 08/06/21 08/06/21 Range/Units 09:34 11:59 16:34 Lymphocytes # (1.0-4.8) k/uL D-Dimer (<0.60) mg/L FEU Sodium 134 L (137-145) mmol/L Carbon Dioxide 19 L (22-30) mmol/L BUN 21 H (7-17) mg/dL Glucose 185 H (74-99) mg/dL POC Glucose (mg/dL) 182 H 238 H (75-99) mg/dL AST 63 H (14-36) U/L ALT 106 H (4-34) U/L C-Reactive Protein 4.1 H (<1.0) mg/dL Total Protein 5.7 L (6.3-8.2) g/dL Albumin 2.9 L (3.5-5.0) g/dL Assessment and Plan Assessment: 1 Acute hypoxic respiratory failure related to acute COVID-19 pneumonia, with onset of symptoms 7 days prior to the presentation, and patient is within the window for Remdesivir which was completed today 08/06/2000. 2 Recent history of brain aneurysm clipping on 07/23/2021, follow-up CT of the brain completed at the hospital at the time of admission showed age-related atrophic and chronic small vessel ischemic changes without acute intracranial process. Postoperative changes of aneurysm clipping were seen 3 Elevated inflammatory markers, related to acute COVID-19 pneumonia 4 Hyperlipidemia 5 Hypothyroidism 6 History of thyroid cancer status post surgical resection 7 Morbid obesity status post gastric sleeve surgery, current BMI is 38.1 kg/m 8 History of obstructive sleep apnea 9 Diabetes mellitus type 2, diet-controlled 10 GERD with previous history of hiatal hernia surgery 11 History of endometriosis, with laparoscopic surgeries 12 Never smoker 13 Elevated d-dimer currently 7.14 Plan: The patient remains at 8 L flow nasal cannula D-dimer over 7, we'll order Doppler of the lower extremities Increase Lovenox to 40 mg subcutaneous twice a day Continue Decadron, vitamin supplements Titrate the FiO2 as tolerated Increase her activity as tolerated We will continue to follow I, the cosigning physician, performed a history & physical examination of the patient. Lungs sounds with coarse bibasilar crackles. Maintaining good O2 saturations in the 90s on 8 L high flow nasal cannula. I discussed the assessment and plan of care with my nurse practitioner, Paula Travis. I attest to the above note as dictated by her.
[2021-08-06 20:23] LABS: Glucose,Whole Blood 141 mg/dL (75-99)
--- NOTE | 2021-08-06 21:41 | US ---
EXAMINATION TYPE: US venous doppler duplex LE DATE OF EXAM: 08/06/2021 9:22 PM COMPARISON: NONE CLINICAL HISTORY: Elevated d-dimer, CoVID. Exam done portable on Covid patient SIDE PERFORMED: Bilateral TECHNIQUE: The lower extremity deep venous system is examined utilizing real time linear array sonog dang with graded compression, doppler sonography and color-flow sonography. VESSELS IMAGED: Common Femoral Vein Deep Femoral Vein Greater Saphenous Vein * Femoral Vein Popliteal Vein Small Saphenous Vein * Proximal Calf Veins (* superficial vessels) Right Leg: Appears negative for DVT Left Leg: Appears negative for DVT Right groin: 4.8 x 1.5 x 3.9cm fluid collection IMPRESSION: There is irregular fluid collection in the right groin region that is nonspecific. No evidence of deep vein thrombosis in both legs.
[2021-08-07] MEDS: THYROID, PORK 30 MG TAB PO SCH (05:51)
[2021-08-07 07:03] LABS: Glucose,Whole Blood 104 mg/dL (75-99)
[2021-08-07] MEDS: ALBUTEROL HFA INHALER INHALATION SCH ×4 (07:23→20:00)
[2021-08-07] MEDS: INSULIN ASPART (NovoLOG) 100 UNIT/ML VIAL SQ SCH ×4 (07:37→20:45)
[2021-08-07] MEDS: MULTIVITAMINS, THERA 1 EACH TAB PO SCH (07:38)
[2021-08-07] MEDS: TOPIRAMATE 25 MG TAB PO SCH ×2 (07:38→20:45)
[2021-08-07] MEDS: ZINC SULFATE 220 MG CAP PO SCH (07:38)
[2021-08-07] MEDS: ASPIRIN 81 MG PO SCH (07:38)
[2021-08-07] MEDS: ASCORBIC ACID 500 MG TAB PO SCH (07:38)
[2021-08-07] MEDS: ESCITALOPRAM 10 MG TAB PO SCH (07:38)
[2021-08-07] MEDS: TICAGRELOR 90 MG TAB PO SCH ×2 (07:39→20:45)
[2021-08-07] MEDS: FERROUS SULFATE 325 MG TAB PO SCH (07:39)
[2021-08-07] MEDS: PANTOPRAZOLE 40 MG TABLET PO SCH (07:39)
[2021-08-07] MEDS: LORATADINE 10 MG TAB PO SCH (07:39)
[2021-08-07] MEDS: CEVIMELINE 30 MG CAP PO SCH ×3 (07:39→20:45)
[2021-08-07] MEDS: DEXAMETHASONE SOD PHOSPHATE 10 MG/ML 1 ML VIAL IVP SCH (07:39)
[2021-08-07] MEDS: CYANOCOBALAMIN 500 MCG TAB PO SCH (07:40)
[2021-08-07] MEDS: ENOXAPARIN 40 MG/0.4 ML SYRINGE SQ SCH ×2 (07:40→20:45)
[2021-08-07] MEDS: ESTRADIOL PO SCH ×2 (07:41→20:46)
[2021-08-07] MEDS: [UNRECOGNIZED DRUG - OTHER] PO SCH ×2 (07:41→20:46)
[2021-08-07] MEDS: CALCIUM PO SCH (07:45)
[2021-08-07] MEDS: CHOLECALCIFEROL PO SCH (07:45)
[2021-08-07] MEDS: MAGNESIUM PO SCH (07:45)
[2021-08-07] MEDS: [UNRECOGNIZED DRUG - MIXTURE] PO SCH (07:45)
[2021-08-07] MEDS ORDERED: BUMETANIDE 0.25 MG/ML 4 ML VIAL IVP STA (09:38)
--- NOTE | 2021-08-07 09:53 | P.PN ---
Subjective Principal diagnosis: COVID-19, hypoxia Chart was reviewed. Patient was admitted due to worsening respiratory symptoms and hypoxia. She was diagnosed with COVID-19 with a home test about 4 days ago. She had recent brain aneurysm clipping on 07/23/27 at outside institution. Patient stated that her symptoms started about a week ago. She was supposed to go to ER to see monoclonal antibodies however due to hypoxia she was sent to the hospital. Subjectively, patient continues to feel better, she feeling that her breathing is much better. However had an episode of desaturation with activity; she is placed on high flow at 8 L with a plan to continue to wean oxygen down. No abdominal pain chest pain nausea or vomiting. Objective - Vital Signs Vital signs: Vital Signs Temp 97.1 F L 08/07/21 05:49 Pulse 59 L 08/07/21 05:49 Resp 15 08/07/21 05:49 BP 118/76 08/07/21 05:49 Pulse Ox 96 08/07/21 05:49 Intake & Output 08/06/21 08/07/21 08/07/21 18:59 06:59 18:59 Intake Total 1250 Output Total 701 Balance 1250 -701 Intake: Intake, IV Titration 250 Amount Remdesivir 100 mg In 250 Sodium Chloride 0.9% 250 ml @ 250 mls/hr IVPB DAILY@1300 [facility] Rx#: [id number] Oral 1000 Output: Urine 700 Stool 1 Other: Voiding Method External Catheter # Voids 3 1 # Bowel Movements 0 - Exam Awake alert oriented 3 Head and neck: No facial asymmetry anicteric sclera, no neck masses or JVD Lungs breath sounds present no wheezing no rhonchi Cardiovascular regular rhythm and rate Abdomen soft nontender nondistended Extremities trace pitting edema no cyanosis or well-perfused Neurological no focal deficits asterixis - Labs CBC & Chem 7: 08/06/21 09:34 08/06/21 09:34 Labs: Abnormal Lab Results - Last 24 Hours (Table) 08/06/21 08/06/21 08/06/21 Range/Units 09:34 09:34 09:34 Lymphocytes # 0.7 L (1.0-4.8) k/uL D-Dimer 7.14 H (<0.60) mg/L FEU Sodium 134 L (137-145) mmol/L Carbon Dioxide 19 L (22-30) mmol/L BUN 21 H (7-17) mg/dL Glucose 185 H (74-99) mg/dL POC Glucose (mg/dL) (75-99) mg/dL AST 63 H (14-36) U/L ALT 106 H (4-34) U/L C-Reactive Protein 4.1 H (<1.0) mg/dL Total Protein 5.7 L (6.3-8.2) g/dL Albumin 2.9 L (3.5-5.0) g/dL 08/06/21 08/06/21 08/06/21 Range/Units 11:59 16:34 20:20 Lymphocytes # (1.0-4.8) k/uL D-Dimer (<0.60) mg/L FEU Sodium (137-145) mmol/L Carbon Dioxide (22-30) mmol/L BUN (7-17) mg/dL Glucose (74-99) mg/dL POC Glucose (mg/dL) 182 H 238 H 141 H (75-99) mg/dL AST (14-36) U/L ALT (4-34) U/L C-Reactive Protein (<1.0) mg/dL Total Protein (6.3-8.2) g/dL Albumin (3.5-5.0) g/dL 08/07/21 Range/Units 07:00 Lymphocytes # (1.0-4.8) k/uL D-Dimer (<0.60) mg/L FEU Sodium (137-145) mmol/L Carbon Dioxide (22-30) mmol/L BUN (7-17) mg/dL Glucose (74-99) mg/dL POC Glucose (mg/dL) 104 H (75-99) mg/dL AST (14-36) U/L ALT (4-34) U/L C-Reactive Protein (<1.0) mg/dL Total Protein (6.3-8.2) g/dL Albumin (3.5-5.0) g/dL Assessment and Plan Plan: #COVID-19 pneumonitis with acute hypoxic respiratory failure Onset of symptoms 7 days prior to admission Chest x-ray: Bilateral pneumonia Current oxygen requirements: 8 L nasal cannula high flow Pulmonary following Remdesevir, dexamethasone, multivitamin Bronchodilators, incentive spirometer, encourage out of bed, titrate oxygen Clinically and subjectively continued to improve, continued to encourage out of bed, incentive spirometer and wean oxygen down Continue diuretics when necessary as this seems to be helping DVT prophylaxis: Lovenox, as imaging of her brain showed stable clipping of the aneurysm. Elevated d-dimer with CTA of the chest showing pneumonia and no pulmonary embolus. Monitor inflammatory markers and d-dimer Patient may be at increased risk for thromboembolism and she is on estradiol at home Monitor d-dimer. Obtain follow-up chest x-ray. #Cerebellar aneurysm status post recent clipping CT of the brain showing stable changes Patient will continue her usual home medications: Aspirin and Brilinta; patient refused statin #Hypothyroidism Continue home thyroid supplementation #Type 2 diabetes mellitus without long-term current use of insulin Patient will remain on diabetic diet and sliding scale #Obesity Status post gastric sleeve surgery Continue multivitamins #Depression Continue home medication, Lexapro DVT prophylaxis: Subcu Lovenox Full code Home medications reviewed
[2021-08-07 11:01] LABS: African American GFR (CKD) 94.2 (60.0-200.0); Anion Gap 12.5 mmol/L (10.00-18.00); BUN/Creat Ratio 25.8 Ratio (12.00-20.00); Carbon Dioxide 22.7 mmol/L (20.0-27.5); Magnesium 2.1 mg/dL (1.5-2.4); Non-African American GFR(CKD) 81.3 (60.0-200.0); Potassium 3.7 mmol/L (3.5-5.5)
[2021-08-07 11:39] LABS: Glucose,Whole Blood 153 mg/dL (75-99)
--- NOTE | 2021-08-07 13:58 | P.PN ---
Subjective Progress Note Date: 08/07/21 56-year-old white female patient with past medical history morbid obesity status post gastric sleeve surgery, hyperlipidemia, sleep apnea on CPAP, thyroid cancer status post surgical resection and patient is on thyroid hormone replacement, history of total hysterectomy, hernia repair, bowel resection, and most recently brain aneurysm clipping on 07/23/2021. Patient came in to the emergency department on 08/01/2021 with complaints of worsening shortness of breath, weakness, cough. She reports symptom onset a week ago on Sunday on 07/26/2021. She was supposed to come into the emergency department for a scheduled monoclonal antibody infusion however in view of her hypoxia patient was seen and admitted to the hospital. She tested positive for COVID 19. Room air pulse ox was 80%, currently patient is requiring 5 L of oxygen, pulse ox is 89-93%, chest x-ray in the emergency department showed patchy densities in bilateral lungs, no evident pneumothorax or pleural effusion. EKG showed sinus tachycardia. Brain CT was done for the reason of headaches and history of aneurysm clipping, and showed age-related atrophic and chronic small vessel ischemic changes without acute intracranial process at this time, there were postoperative changes of aneurysm clipping. Admission blood work has been reviewed showing normal white count with the white blood cell count of 8.9, hemoglobin of 14.7, d-dimer was 1.11, INR was 0.9, electrolytes were within normal limits, sodium was 136, the rest of electrolytes were within normal limits, BUN is 18 creatinine 0.85, lactic acid was 1.3, ferritin level was 584, AST was 59, ALT was 40, alkaline phosphatase was 88, LDH was 1486, CRP was 20.4. Pro-calcitonin level was negative at 0.09. Patient states she is not vaccinated, and her and her granddaughter children are also symptomatic and tested positive for COVID-19. CT angiogram of the chest showed no evidence of acute pulmonary embolism, it did show bilateral multifocal groundglass opacities consistent with COVID-19 infection. Patient was started on Decadron 6 mg daily, prophylactic dose Lovenox 40 mg daily, COVID-19 vitamins On 08/03/2021 patient seen in follow-up on medical surgical floor. She is resting comfortably in bed, her work of breathing significantly improved on today's exam, she is less tachypneic, she is breathing quite comfortably, she still on 4 L of oxygen pulse ox is 95%, today's Remdesivir day 2 of treatment, she also continues on Decadron 6 mg daily, vitamins C, D and zinc, and prophylactic Lovenox 40 mg daily, she's had no acute events overnight, she has occasional cough, at times she is able to bring up some phlegm, no chest discomfort, lung sounds reveal some minimal bibasilar crackles, overall coarse breath sounds, but no wheezing. Vital signs have been stable. No fever or chills, she is tolerating oral intake. Today's labs have been reviewed. White blood cell count is 12.3, hemoglobin is 13.1, sodium is 140, potassium is 4.5, CO2 is 16, BUN is 17, creatinine 0.7, her lactic acid on admission was 1.3, her LFTs are relatively stable, follow-up inflammatory markers are pending. On 08/04/2021 patient seen in follow-up on medical surgical floor. She is awake and alert, she remains on Remdesivir, today is day 3 of treatment, continues on Decadron, prophylactic Lovenox, COVID-19 multivitamins. Breathing easier, has a congested cough. Today's follow-up chest x-ray shows stable bilateral infiltrates. Overall patient has been stable although mobility nunez she has not done a whole lot and has been on bedrest. Would like to see her get up out of bed and sit up in the chair and ambulate more today. On 08/05/2021 patient seen in follow-up on medical surgical floor, patient had been on 4-5 L of oxygen, this morning her pulse ox was 90-92% on 5 L, stable in terms of breathing, with some exertional dyspnea, overall clinically improved since admission, no fever or chills. Patient was being assisted up out of bed to go and sit in the recliner when she had episode of desaturation, panic attack, she was placed on high flow nasal cannula and a nonrebreather mask. She is sitting in a recliner, she still has a persistent cough, and diffuse coarse crackles at bilateral mid to lower lungs. Otherwise she states she feels good. He remains on Decadron 6 mg daily, today is day 4 of Remdesivir treatment, and she is on prophylactic Lovenox in addition to COVID-19 vitamins. On 08/07/2021 patient seen in follow-up on medical surgical floor, she is breathing easier, she is currently on 5 L of oxygen, on 6 L of oxygen earlier her pulse ox was 96%, she sitting up in the chair, she denies any acute distress, she was given a dose of diuretic, she states she is breathing easier since then, her lung sounds are essentially clear to auscultation, no rhonchi, no wheezing, no complaints of chest discomfort, she is doing very well. She continues on Decadron, prophylactic Lovenox, lower extremity Dopplers were negative for DVT. Her inflammatory markers were improving on labs from couple days ago. Overall she has no specific complaints, her cough has significantly improved, no crackles on today's exam, she is tolerating oral intake. Objective - Vital Signs Vital signs: Vital Signs Temp 97.6 F 08/07/21 09:56 Pulse 66 08/07/21 09:56 Resp 18 08/07/21 09:56 BP 113/70 08/07/21 09:56 Pulse Ox 96 08/07/21 10:15 Intake & Output 08/06/21 08/07/21 08/07/21 18:59 06:59 18:59 Intake Total 1250 Output Total 701 Balance 1250 -701 Intake: Intake, IV Titration 250 Amount Remdesivir 100 mg In 250 Sodium Chloride 0.9% 250 ml @ 250 mls/hr IVPB DAILY@1300 [facility] Rx#: [id number] Oral 1000 Output: Urine 700 Stool 1 Other: Voiding Method External Catheter # Voids 3 1 # Bowel Movements 0 - Exam GENERAL EXAM: Alert, pleasant, 56-year-old white female, on the 5 L of oxygen with a nonrebreather mask comfortable in no apparent distress. HEAD: Normocephalic/atraumatic. EYES: Normal reaction of pupils, equal size. Conjunctiva pink, sclera white. NOSE: Clear with pink turbinates. THROAT: No erythema or exudates. NECK: No masses, no JVD, no thyroid enlargement, no adenopathy. CHEST: No chest wall deformity. Symmetrical expansion. LUNGS: Equal air entry with bilateral crackles CVS: Regular rate and rhythm, normal S1 and S2, no gallops, no murmurs, no rubs ABDOMEN: Obese, Soft, nontender. No hepatosplenomegaly, normal bowel sounds, no guarding or rigidity. EXTREMITIES: No clubbing, no edema, no cyanosis, 2+ pulses and upper and lower extremities. MUSCULOSKELETAL: Muscle strength and tone normal. SPINE: No scoliosis or deformity SKIN: No rashes CENTRAL NERVOUS SYSTEM: Alert and oriented -3. No focal deficits, tone is normal in all 4 extremities. PSYCHIATRIC: Alert and oriented -3. Appropriate affect. Intact judgment and insight. - Labs CBC & Chem 7: 08/06/21 09:34 08/07/21 06:16 Labs: Abnormal Lab Results - Last 24 Hours (Table) 08/06/21 08/06/21 08/07/21 Range/Units 16:34 20:20 06:16 BUN/Creatinine Ratio 25.80 H (12.00-20.00) Ratio POC Glucose (mg/dL) 238 H 141 H (75-99) mg/dL 08/07/21 08/07/21 Range/Units 07:00 11:33 BUN/Creatinine Ratio (12.00-20.00) Ratio POC Glucose (mg/dL) 104 H 153 H (75-99) mg/dL Assessment and Plan Plan: Assessment: #1. Acute hypoxic respiratory failure related to acute COVID-19 pneumonia, with onset of symptoms 7 days prior to the presentation, and patient is within the window for Remdesivir which will be started today on 08/02/2021. #2. Recent history of brain aneurysm clipping on 07/23/2021, follow-up CT of the brain completed at the hospital at the time of admission showed age-related atrophic and chronic small vessel ischemic changes without acute intracranial process. Postoperative changes of aneurysm clipping were seen #3. Elevated inflammatory markers, related to acute COVID-19 pneumonia #4. Hyperlipidemia #5. Hypothyroidism #6. History of thyroid cancer status post surgical resection #7. Morbid obesity status post gastric sleeve surgery, current BMI is 38.1 kg/m #8. History of obstructive sleep apnea #9. Diabetes mellitus type 2, diet-controlled #10. GERD with previous history of hiatal hernia surgery #11. History of endometriosis, with laparoscopic surgeries #12. Never smoker Plan: Continue weaning FiO2 to keep O2 sats rashes at or about 90% Patient's breathing is improving, Patient received a couple doses of Bumex, diuresed, breathing easier She completed her Remdesivir Continues on Decadron, intermediate dosing of Lovenox No DVT on lower extremity Dopplers If patient is on 5 L of supplemental oxygen or less and continues to improve we may consider discharge home in 24 hours I performed a history & physical examination of the patient and discussed their management with my nurse practitioner, Leigh Johnson. I reviewed the nurse practitioner's note and agree with the documented findings and plan of care. Lung sounds are positive for diminished breath sounds throughout the lung grant. The findings and the impression was discussed with the patient. I attest to the documentation by the nurse practitioner. Time with Patient: Less than 30
[2021-08-07 16:18] LABS: Glucose,Whole Blood 187 mg/dL (75-99)
[2021-08-07 20:18] LABS: Glucose,Whole Blood 174 mg/dL (75-99)
[2021-08-08] MEDS: THYROID, PORK 30 MG TAB PO SCH (06:20)
[2021-08-08 06:58] LABS: Glucose,Whole Blood 93 mg/dL (75-99)
[2021-08-08] MEDS: INSULIN ASPART (NovoLOG) 100 UNIT/ML VIAL SQ SCH ×2 (08:22→12:00)
[2021-08-08] MEDS: CEVIMELINE 30 MG CAP PO SCH (08:28)
[2021-08-08] MEDS: CYANOCOBALAMIN 500 MCG TAB PO SCH (08:28)
[2021-08-08] MEDS: FERROUS SULFATE 325 MG TAB PO SCH (08:29)
[2021-08-08] MEDS: PANTOPRAZOLE 40 MG TABLET PO SCH (08:29)
[2021-08-08] MEDS: ZINC SULFATE 220 MG CAP PO SCH (08:29)
[2021-08-08] MEDS: TICAGRELOR 90 MG TAB PO SCH (08:29)
[2021-08-08] MEDS: ESCITALOPRAM 10 MG TAB PO SCH (08:29)
[2021-08-08] MEDS: ASCORBIC ACID 500 MG TAB PO SCH (08:29)
[2021-08-08] MEDS: DEXAMETHASONE SOD PHOSPHATE 10 MG/ML 1 ML VIAL IVP SCH (08:29)
[2021-08-08] MEDS: LORATADINE 10 MG TAB PO SCH (08:29)
[2021-08-08] MEDS: TOPIRAMATE 25 MG TAB PO SCH (08:30)
[2021-08-08] MEDS: MULTIVITAMINS, THERA 1 EACH TAB PO SCH (08:30)
[2021-08-08] MEDS: ENOXAPARIN 40 MG/0.4 ML SYRINGE SQ SCH (08:30)
[2021-08-08] MEDS: [UNRECOGNIZED DRUG - MIXTURE] PO SCH (08:31)
[2021-08-08] MEDS: ESTRADIOL PO SCH (08:31)
[2021-08-08] MEDS: ASPIRIN 81 MG PO SCH (08:31)
[2021-08-08] MEDS: [UNRECOGNIZED DRUG - OTHER] PO SCH (08:31)
[2021-08-08] MEDS: CHOLECALCIFEROL PO SCH (08:32)
[2021-08-08] MEDS: CALCIUM PO SCH (08:32)
[2021-08-08] MEDS: MAGNESIUM PO SCH (08:32)
[2021-08-08] MEDS: ALBUTEROL HFA INHALER INHALATION SCH ×2 (08:58→12:50)
[2021-08-08 09:10] LABS: African American GFR (CKD) 83.4 (60.0-200.0); Anion Gap 12.5 mmol/L (10.00-18.00); Blood Urea Nitrogen 20.7 mg/dL (9.0-27.0); Carbon Dioxide 24.5 mmol/L (20.0-27.5); Potassium 3.5 mmol/L (3.5-5.5)
[2021-08-08] MEDS ORDERED: SIMETHICONE 40 MG/0.6 ML DROPS 2,000 MG/30 ML BOTTLE PO SCH (09:45)
--- NOTE | 2021-08-08 10:15 | P.DS ---
Providers Date of admission: 08/01/21 08:38 Expected date of discharge: 08/08/21 Attending physician: Inna Uribe MD Consults: 08/01/21 08:55 Consult Physician Routine Consulting Provider: Lauren Jesus Consult Reason/Comments: COVID 19 Do you want consulting provider notified?: Yes Primary care physician: Chantelle Navarrete Hospital Course: Discharge Diagnosis: Acute hypoxic respiratory failure secondary to Covid 19 pneumonia Recent history of brain aneurysm status post clipping on 07/23/21 Elevated liver enzymes, likely secondary to current infectious process with Covid 19 virus Elevated inflammatory markers, secondary to current infectious process with Covid 19 virus Hyperlipidemia Hypothyroidism History of thyroid cancer status post surgical resection Diabetes mellitus type 2, diet controlled GERD with previous history of hiatal hernia status post surgical repair Obesity with a BMI of 38.1 Hospital Course: Patient is a very pleasant 56-year-old female with a past medical history of dyslipidemia, hypothyroidism, brain aneurysm status post clipping on 07/23/21, diabetes mellitus type 2 controlled via diet, GERD, history of hiatal hernia status post surgical repair, and history of thyroid cancer status post surgical resection. Patient presented to the emergency department on 08/01/21 with a chief complaint of shortness of breath 7 days progressively worsening. Patient was found to be hypoxic with O2 sats 80% on room air requiring oxygen supplementation. In the Emergency department patient underwent a full evaluation was found to be positive for Covid 19 virus infection, chest x-ray revealed bilateral consolidation consistent with pneumonia, patient did have elevated d-dimer at 1.11 and a CTA was completed negative for PE again showing bilateral consolidations consistent with Covid 19 pneumonia. CRP elevated at 20.4 and LDH of 1486. Pro-calcitonin negative at 0.09. Patient was admitted under our services of consultation to pulmonology. Patient was treated with oxygen supplementation, steroids, vitamin C, vitamin D, zinc, Remdesivir, and DVT prophylaxis with Lovenox. Bilateral lower extremity Dopplers were negative for DVT. Patient also underwent CT head secondary to recent history of brain aneurysm status post clipping which revealed stable postoperative changes secondary to clipping of the brain aneurysm, age related atrophic and chronic small vessel ischemic changes, and negative for acute intercranial process. Patient's condition improved, she completed course of Remdesivir and oxygen was weaned down to 4 L O2 via nasal cannula and patient maintaining SpO2 of 95%. Patient is stable for discharge home at this time. Ambulatory pulse ox greater than 92% on 4 L. She is being discharged on home oxygen and instructed to wear at all times pending further recommendations from pulmonology at follow-up appointment. Patient being discharged home and instructed to continue vitamin C, vitamin D, and zinc and was provided with a prescription to complete 10 day course of Decadron. Patient being discharged home with [facility] and to follow up with PCP Dr. Almeida as well as member of technical staff Dr. Jesus. Physical examination: Patient seen and examined at bedside. She was sitting up in chair at bedside reports feeling much easier to breathe and take a deep breath at this time. Patient denies having any Vital signs reviewed and stable. General: Nontoxic, no distress and appears stated age. Derm: Skin warm and dry, normal coloration for ethnicity. Head: Atraumatic, normocephalic and symmetric. Eyes: EOMs intact, no lid lag, and anicteric sclera Mouth: no lip lesions, mucus membranes moist Cardiovascular: regular rate and rhythm with normal S1S2, no murmur, positive posterior tibial pulses bilaterally, and cap refill < 2 seconds. Lungs: Respirations even, regular, and unlabored on 4L O2 via NC. Lungs with soft crackles at bases. No rhonchi, no rales, no wheezing, and no accessory muscle usage. Abdominal: soft, nontender to palpation, no guarding, no appreciable organomegaly Ext: ROM intact. No gross muscle atrophy, no edema, no contractures Neuro: Speech clear, face symmetrical and CN II-XII grossly intact with no noted focal neuro deficits Psych: Alert and oriented to person, place, time, and situation. Appropriate and pleasant affect. A total of 45 minutes of time were spent preparing this complex discharge summary. Patient Condition at Discharge: Stable Plan - Discharge Summary Discharge Rx Participant: Yes New Discharge Prescriptions: New Dexamethasone [Decadron] 6 mg PO DAILY 3 Days #3 tablet Continue Cholecalciferol [Vitamin D3 (25 Mcg = 1000 Iu)] 25 mcg PO DAILY Multivitamins, Thera [Multivitamin (formulary)] 1 tab PO DAILY Cetirizine HCl [Zyrtec] 10 mg PO DAILY Cevimeline HCl [Evoxac] 30 mg PO TID Cyanocobalamin (Vitamin B-12) [Vitamin B-12] 5,000 mcg PO DAILY Vitamin A 3,000 Units 3,000 units PO DAILY Psyllium Husk [Metamucil] 0.4 gm PO DAILY Cranberry W/Vit C 1 tab PO DAILY Topiramate [Topamax] 50 mg PO BID Thyroid,Pork [Kermit Thyroid] 90 mg PO SUTUWETHFRSA Zinc Citrate 30mg 30 mg PO DAILY bisacodyL [Dulcolax] 5 mg PO DAILY Magnesium Citrate 225mg/5ml 225 mg PO DAILY Pure [place] Hp-375 Epa/125 Dha 1 cap PO DAILY Calcium/Magnesium/Vit D3 Complex 1 cap PO DAILY L.acidoph,Paracasei, B.lactis [Probiotic] 1 cap PO DAILY Chromium Picolinate 200 mcg PO DAILY Black Elderberry 2,000mg 2,000 mg PO DAILY Inflamed (Curcumin Blend) 1 cap PO DAILY Escitalopram [Lexapro] 10 mg PO DAILY Ferrous Sulfate [Iron (65 MG Elemental)] 325 mg PO DAILY Omeprazole Magnesium [PriLOSEC OTC] 40 mg PO DAILY Aspirin 81 mg PO DAILY Estradiol 10.5/Testosterone 0.15 Compound Cream 0.125 tsp TOPICAL BID Progesterone,Micronized 140-Dh8mg Cap 1 cap PO BID Estradiol [Vagifem] 10 mcg VG MOWEFR Ticagrelor [Brilinta] 90 mg PO BID Thyroid,Pork [Kermit Thyroid] 135 mg PO MO Ascorbic Acid [Vitamin C] 500 mg PO DAILY Albuterol Sulfate [Ventolin HFA] 2 puff INHALATION RT-QID #1 inh Discontinued methylPREDNISolone Dose Pack [Medrol Dose Pack] See Taper PO DAILY Discharge Medication List Cetirizine HCl [Zyrtec] 10 mg PO DAILY 05/06/18 [History] Cevimeline HCl [Evoxac] 30 mg PO TID 05/06/18 [History] Cholecalciferol [Vitamin D3 (25 Mcg = 1000 Iu)] 25 mcg PO DAILY 05/06/18 [History] Multivitamins, Thera [Multivitamin (formulary)] 1 tab PO DAILY 05/06/18 [History] Cyanocobalamin (Vitamin B-12) [Vitamin B-12] 5,000 mcg PO DAILY 04/07/20 [History] Black Elderberry 2,000mg 2,000 mg PO DAILY 10/16/20 [History] Calcium/Magnesium/Vit D3 Complex 1 cap PO DAILY 10/16/20 [History] Chromium Picolinate 200 mcg PO DAILY 10/16/20 [History] Cranberry W/Vit C 1 tab PO DAILY 10/16/20 [History] Inflamed (Curcumin Blend) 1 cap PO DAILY 10/16/20 [History] L.acidoph,Paracasei, B.lactis [Probiotic] 1 cap PO DAILY 10/16/20 [History] Magnesium Citrate 225mg/5ml 225 mg PO DAILY 10/16/20 [History] Psyllium Husk [Metamucil] 0.4 gm PO DAILY 10/16/20 [History] Pure [place] Hp-375 Epa/125 Dha 1 cap PO DAILY 10/16/20 [History] Thyroid,Pork [Kermit Thyroid] 90 mg PO SUTUWETHFRSA 10/16/20 [History] Topiramate [Topamax] 50 mg PO BID 10/16/20 [History] Vitamin A 3,000 Units 3,000 units PO DAILY 10/16/20 [History] Zinc Citrate 30mg 30 mg PO DAILY 10/16/20 [History] bisacodyL [Dulcolax] 5 mg PO DAILY 10/16/20 [History] Ascorbic Acid [Vitamin C] 500 mg PO DAILY 08/01/21 [History] Aspirin 81 mg PO DAILY 08/01/21 [History] Escitalopram [Lexapro] 10 mg PO DAILY 08/01/21 [History] Estradiol 10.5/Testosterone 0.15 Compound Cream 0.125 tsp TOPICAL BID 08/01/21 [History] Estradiol [Vagifem] 10 mcg VG MOWEFR 08/01/21 [History] Ferrous Sulfate [Iron (65 MG Elemental)] 325 mg PO DAILY 08/01/21 [History] Omeprazole Magnesium [PriLOSEC OTC] 40 mg PO DAILY 08/01/21 [History] Progesterone,Micronized 140-Dh8mg Cap 1 cap PO BID 08/01/21 [History] Thyroid,Pork [Kermit Thyroid] 135 mg PO MO 08/01/21 [History] Ticagrelor [Brilinta] 90 mg PO BID 08/01/21 [History] Albuterol Sulfate [Ventolin HFA] 2 puff INHALATION RT-QID #1 inh 08/08/21 [Rx] Dexamethasone [Decadron] 6 mg PO DAILY 3 Days #3 tablet 08/08/21 [Rx] Follow up Appointment(s)/Referral(s): Lauren Jesus MD [STAFF PHYSICIAN] - 2 Weeks [facility] [NON-STAFF] - As Needed (oxygen ) Chantelle Navarrete DO [Primary Care Provider] - 08/10/21 12:00 pm [facility], [NON-STAFF] - As Needed Patient Instructions/Handouts: Coronavirus Disease 2019 (COVID-19), Using Oxygen at Home (DC) Activity/Diet/Wound Care/Special Instructions: Activity: As tolerated. Take breaks as needed. Diet: Heart healthy and carb consistent diet. Avoid salts, or foods with hidden salts such as canned or boxed foods and frozen dinners. Extra salt makes your heart work harder and traps the fluid in your body for longer. Special Instructions: Take all of your medications as directed and remember to keep all of your doctor's appointments and follow-up as needed. You are being discharged home on home oxygen, it is important to wear this at all times including while showering and sleeping. It is important to wear this at all times until further instructed by her member of technical staff, Dr. Mae. Thank you for allowing us to participate in your care, it was truly a pleasure having you for our patient!!!
[2021-08-08 11:07] VITALS: BP 98/60; PULSE 96; RESP 19; TEMP 98
[2021-08-08 11:53] LABS: Glucose,Whole Blood 200 mg/dL (75-99)
[2021-08-08 14:12] VITALS: BMI 38.0
--- NOTE | 2021-08-08 15:35 | P.PN ---
Subjective Progress Note Date: 08/08/21 56-year-old white female patient with past medical history morbid obesity status post gastric sleeve surgery, hyperlipidemia, sleep apnea on CPAP, thyroid cancer status post surgical resection and patient is on thyroid hormone replacement, history of total hysterectomy, hernia repair, bowel resection, and most recently brain aneurysm clipping on 07/23/2021. Patient came in to the emergency department on 08/01/2021 with complaints of worsening shortness of breath, weakness, cough. She reports symptom onset a week ago on Sunday on 07/26/2021. She was supposed to come into the emergency department for a scheduled monoclonal antibody infusion however in view of her hypoxia patient was seen and admitted to the hospital. She tested positive for COVID 19. Room air pulse ox was 80%, currently patient is requiring 5 L of oxygen, pulse ox is 89-93%, chest x-ray in the emergency department showed patchy densities in bilateral lungs, no evident pneumothorax or pleural effusion. EKG showed sinus tachycardia. Brain CT was done for the reason of headaches and history of aneurysm clipping, and showed age-related atrophic and chronic small vessel ischemic changes without acute intracranial process at this time, there were postoperative changes of aneurysm clipping. Admission blood work has been reviewed showing normal white count with the white blood cell count of 8.9, hemoglobin of 14.7, d-dimer was 1.11, INR was 0.9, electrolytes were within normal limits, sodium was 136, the rest of electrolytes were within normal limits, BUN is 18 creatinine 0.85, lactic acid was 1.3, ferritin level was 584, AST was 59, ALT was 40, alkaline phosphatase was 88, LDH was 1486, CRP was 20.4. Pro-calcitonin level was negative at 0.09. Patient states she is not vaccinated, and her and her granddaughter children are also symptomatic and tested positive for COVID-19. CT angiogram of the chest showed no evidence of acute pulmonary embolism, it did show bilateral multifocal groundglass opacities consistent with COVID-19 infection. Patient was started on Decadron 6 mg daily, prophylactic dose Lovenox 40 mg daily, COVID-19 vitamins On 08/03/2021 patient seen in follow-up on medical surgical floor. She is resting comfortably in bed, her work of breathing significantly improved on today's exam, she is less tachypneic, she is breathing quite comfortably, she still on 4 L of oxygen pulse ox is 95%, today's Remdesivir day 2 of treatment, she also continues on Decadron 6 mg daily, vitamins C, D and zinc, and prophylactic Lovenox 40 mg daily, she's had no acute events overnight, she has occasional cough, at times she is able to bring up some phlegm, no chest discomfort, lung sounds reveal some minimal bibasilar crackles, overall coarse breath sounds, but no wheezing. Vital signs have been stable. No fever or chills, she is tolerating oral intake. Today's labs have been reviewed. White blood cell count is 12.3, hemoglobin is 13.1, sodium is 140, potassium is 4.5, CO2 is 16, BUN is 17, creatinine 0.7, her lactic acid on admission was 1.3, her LFTs are relatively stable, follow-up inflammatory markers are pending. On 08/04/2021 patient seen in follow-up on medical surgical floor. She is awake and alert, she remains on Remdesivir, today is day 3 of treatment, continues on Decadron, prophylactic Lovenox, COVID-19 multivitamins. Breathing easier, has a congested cough. Today's follow-up chest x-ray shows stable bilateral infiltrates. Overall patient has been stable although mobility nunez she has not done a whole lot and has been on bedrest. Would like to see her get up out of bed and sit up in the chair and ambulate more today. On 08/05/2021 patient seen in follow-up on medical surgical floor, patient had been on 4-5 L of oxygen, this morning her pulse ox was 90-92% on 5 L, stable in terms of breathing, with some exertional dyspnea, overall clinically improved since admission, no fever or chills. Patient was being assisted up out of bed to go and sit in the recliner when she had episode of desaturation, panic attack, she was placed on high flow nasal cannula and a nonrebreather mask. She is sitting in a recliner, she still has a persistent cough, and diffuse coarse crackles at bilateral mid to lower lungs. Otherwise she states she feels good. He remains on Decadron 6 mg daily, today is day 4 of Remdesivir treatment, and she is on prophylactic Lovenox in addition to COVID-19 vitamins. On 08/07/2021 patient seen in follow-up on medical surgical floor, she is breathing easier, she is currently on 5 L of oxygen, on 6 L of oxygen earlier her pulse ox was 96%, she sitting up in the chair, she denies any acute distress, she was given a dose of diuretic, she states she is breathing easier since then, her lung sounds are essentially clear to auscultation, no rhonchi, no wheezing, no complaints of chest discomfort, she is doing very well. She continues on Decadron, prophylactic Lovenox, lower extremity Dopplers were negative for DVT. Her inflammatory markers were improving on labs from couple days ago. Overall she has no specific complaints, her cough has significantly improved, no crackles on today's exam, she is tolerating oral intake. On 08/08/2021 patient seen in follow-up on medical surgical floor, she is currently down to 4 L of oxygen pulse ox of 97-99%. Vital signs have been stable, she is breathing comfortably. No fever or chills, lung sounds are essentially clear on today's exam. Patient has been getting up and moving around in the room, tolerating activity She completed her Remdesivir course, she remains on Decadron, and prophylactic Lovenox. She received a couple of doses of Bumex, she has diuresed and she states her breathing has significantly improved Objective - Vital Signs Vital signs: Vital Signs Temp 98.0 F 08/08/21 10:00 Pulse 96 08/08/21 10:00 Resp 19 08/08/21 10:00 BP 98/60 08/08/21 10:00 Pulse Ox 99 08/08/21 10:00 Intake & Output 08/07/21 08/08/21 08/08/21 18:59 06:59 18:59 Intake Total 1000 Output Total 1 Balance 1000 -1 Weight 100.698 kg Intake: Oral 1000 Output: Stool 1 Other: Voiding Method External Catheter # Voids 5 1 # Bowel Movements 0 - Exam GENERAL EXAM: Alert, pleasant, 56-year-old white female, on the 4 L of oxygen pulse ox of 99 HEAD: Normocephalic/atraumatic. EYES: Normal reaction of pupils, equal size. Conjunctiva pink, sclera white. NOSE: Clear with pink turbinates. THROAT: No erythema or exudates. NECK: No masses, no JVD, no thyroid enlargement, no adenopathy. CHEST: No chest wall deformity. Symmetrical expansion. LUNGS: Equal air entry with no crackles, no rhonchi, no wheezes CVS: Regular rate and rhythm, normal S1 and S2, no gallops, no murmurs, no rubs ABDOMEN: Obese, Soft, nontender. No hepatosplenomegaly, normal bowel sounds, no guarding or rigidity. EXTREMITIES: No clubbing, no edema, no cyanosis, 2+ pulses and upper and lower extremities. MUSCULOSKELETAL: Muscle strength and tone normal. SPINE: No scoliosis or deformity SKIN: No rashes CENTRAL NERVOUS SYSTEM: Alert and oriented -3. No focal deficits, tone is normal in all 4 extremities. PSYCHIATRIC: Alert and oriented -3. Appropriate affect. Intact judgment and insight. - Labs CBC & Chem 7: 08/06/21 09:34 08/08/21 06:13 Labs: Abnormal Lab Results - Last 24 Hours (Table) 08/07/21 08/07/21 08/08/21 Range/Units 16:13 20:16 06:13 BUN/Creatinine Ratio 23.00 H (12.00-20.00) Ratio POC Glucose (mg/dL) 187 H 174 H (75-99) mg/dL 08/08/21 Range/Units 11:51 BUN/Creatinine Ratio (12.00-20.00) Ratio POC Glucose (mg/dL) 200 H (75-99) mg/dL Assessment and Plan Plan: Assessment: #1. Acute hypoxic respiratory failure related to acute COVID-19 pneumonia, with onset of symptoms 7 days prior to the presentation, and patient is within the nv ndow for Remdesivir which will be started today on 08/02/2021. #2. Recent history of brain aneurysm clipping on 07/23/2021, follow-up CT of the brain completed at the hospital at the time of admission showed age-related atrophic and chronic small vessel ischemic changes without acute intracranial process. Postoperative changes of aneurysm clipping were seen #3. Elevated inflammatory markers, related to acute COVID-19 pneumonia #4. Hyperlipidemia #5. Hypothyroidism #6. History of thyroid cancer status post surgical resection #7. Morbid obesity status post gastric sleeve surgery, current BMI is 38.1 kg/m #8. History of obstructive sleep apnea #9. Diabetes mellitus type 2, diet-controlled #10. GERD with previous history of hiatal hernia surgery #11. History of endometriosis, with laparoscopic surgeries #12. Never smoker Plan: Patient completed her course of Remdesivir Has been diuresed, Fio2 down to 4 l She Qualified for home oxygen Stable for discharge home to complete a total of 10 day course of Decadron, she can continue on COVID-19 multivitamins Outpatient follow up with Dr. Tran in 2 weeks I performed a history & physical examination of the patient and discussed their management with my nurse practitioner, Leigh Johnson. I reviewed the nurse practitioner's note and agree with the documented findings and plan of care. Lung sounds are positive for diminished breath sounds throughout the lung grant. The findings and the impression was discussed with the patient. I attest to the documentation by the nurse practitioner. Time with Patient: Less than 30
== END 2021-08-08 15:56 | disposition home health service (06) | DRG 177 ==
LOC: EC 06:39 → 4SSUR 08:38
PROVIDERS: ADMIT Internal Medicine; ATTEND Internal Medicine
PROC: XW033E5 Introduction of Remdesivir Anti-infective into Peripheral Vein, Percutaneous Approach, New Technology Group 5 (ICD-10-PCS; principal; 2021-08-02)
PROC: 5A09557 Assistance with Respiratory Ventilation, Greater than 96 Consecutive Hours, Continuous Positive Airway Pressure (ICD-10-PCS; 2021-08-03)
PROC: 5A0945A Assistance with Respiratory Ventilation, 24-96 Consecutive Hours, High Flow/Velocity Cannula (ICD-10-PCS; 2021-08-05)
DX: U07.1 COVID-19 (principal); J12.82 Pneumonia due to coronavirus disease 2019; J96.01 Acute respiratory failure with hypoxia; E66.01 Morbid (severe) obesity due to excess calories; Z68.38 Body mass index [BMI] 38.0-38.9, adult; E11.9 Type 2 diabetes mellitus without complications; F41.0 Panic disorder [episodic paroxysmal anxiety]; F32.A Depression, unspecified; E78.5 Hyperlipidemia, unspecified; E86.0 Dehydration; G47.33 Obstructive sleep apnea (adult) (pediatric); K21.9 Gastro-esophageal reflux disease without esophagitis; E89.0 Postprocedural hypothyroidism; Z85.850 Personal history of malignant neoplasm of thyroid; Z79.82 Long term (current) use of aspirin; Z79.02 Long term (current) use of antithrombotics/antiplatelets; Z79.890 Hormone replacement therapy; Z79.899 Other long term (current) drug therapy; Z87.891 Personal history of nicotine dependence; Z98.84 Bariatric surgery status; Z90.710 Acquired absence of both cervix and uterus; Z90.49 Acquired absence of other specified parts of digestive tract; Z87.19 Personal history of other diseases of the digestive system; Z87.42 Personal history of other diseases of the female genital tract; Z86.79 Personal history of other diseases of the circulatory system; Z71.3 Dietary counseling and surveillance; Z98.890 Other specified postprocedural states; Z88.6 Allergy status to analgesic agent; Z88.5 Allergy status to narcotic agent; Z88.2 Allergy status to sulfonamides; Z88.8 Allergy status to other drugs, medicaments and biological substances; Z91.048 Other nonmedicinal substance allergy status
CPT/HCPCS: 36415; 70450; 71045; 71275; 80048; 80053; 82728; 83605; 83615; 83735; 84145; 85025; 85027; 85379; 85610; 85730; 86140; 87635; 93005; 93970; 94640; 96374; 96375; 99285

== ENCOUNTER 2021-10-24 14:24 | Emergency (ER) | payer BC ==
[2021-10-24 14:42] VITALS: TEMP 97.9
[2021-10-24 15:30] LABS: Basophils # (A) 0.1 k/uL (0-0.2); Basophils % (A) 1 %; Eosinophils # (A) 0.1 k/uL (0-0.7); Eosinophils % (A) 2 %; HCT 44.3 % (34.0-46.0); HGB 14.5 gm/dL (11.4-16.0); Lymphocytes # (A) 2.1 k/uL (1.0-4.8); Lymphocytes % (A) 34 %; MCH 31.9 pg (25.0-35.0); MCHC 32.7 g/dL (31.0-37.0); MCV 97.8 fL (80.0-100.0); Mean Platelet Volume 6.9; Monocytes # (A) 0.3 k/uL (0-1.0); Monocytes % (A) 4 %; Neutrophils # (A) 3.5 k/uL (1.3-7.7); Neutrophils % (A) 57 %; Platelet Count 234 k/uL (150-450); RBC 4.53 m/uL (3.80-5.40); RDW 13.5 % (11.5-15.5); WBC 6.2 k/uL (3.8-10.6)
[2021-10-24] MEDS ORDERED: diphenhydrAMINE 50 MG/ML 1 ML VIAL IVP STA (15:30)
[2021-10-24] MEDS ORDERED: METOCLOPRAMIDE 5 MG/ML 2 ML VIAL IVP STA (15:30)
[2021-10-24 15:38] LABS: Albumin 4.9 g/dL (3.5-5.0); Total Bilirubin 0.8 mg/dL (0.2-1.3); Total Protein 7.9 g/dL (6.3-8.2)
[2021-10-24 15:41] LABS: Potassium 4.6 mmol/L (3.5-5.1)
--- NOTE | 2021-10-24 16:02 | ED ---
Headache HPI - General Chief Complaint: Headache Stated Complaint: Headache Time Seen by Provider: 10/24/21 15:15 Source: patient, RN notes reviewed Mode of arrival: ambulatory Limitations: no limitations - History of Present Illness Initial Comments: 56-year-old female presents emergency Department chief complaint of a headache. Patient states started around 9:30 this morning. Patient states that she does have a history of aneurysm with stenting and coiling. Patient states his happened in June. Patient states Dr. Blanchard performed procedure in [place]. Patient denies any traumatic injury. Patient states she does take Proventil. Patient states this was a sudden onset of headache this morning. Patient states she feels some pressure on the left side of her eye. Denies any focal weakness of her extremities states that this is a normal she has slight weakness on her left leg. No chest pain patient states she does have some photophobia. - Related Data Home Medications Medication Instructions Recorded Confirmed Cetirizine HCl [Zyrtec] 10 mg PO DAILY 05/06/18 08/01/21 Cevimeline HCl [Evoxac] 30 mg PO TID 05/06/18 08/01/21 Cholecalciferol [Vitamin D3 (25 25 mcg PO DAILY 05/06/18 08/01/21 Mcg = 1000 Iu)] Multivitamins, Thera [Multivitamin 1 tab PO DAILY 05/06/18 08/01/21 (formulary)] Cyanocobalamin (Vitamin B-12) 5,000 mcg PO DAILY 04/07/20 08/01/21 [Vitamin B-12] Black Elderberry 2,000mg 2,000 mg PO DAILY 10/16/20 08/01/21 Calcium/Magnesium/Vit D3 Complex 1 cap PO DAILY 10/16/20 08/01/21 Chromium Picolinate 200 mcg PO DAILY 10/16/20 08/01/21 Cranberry W/Vit C 1 tab PO DAILY 10/16/20 08/01/21 Inflamed (Curcumin Blend) 1 cap PO DAILY 10/16/20 08/01/21 L.acidoph,Paracasei, B.lactis 1 cap PO DAILY 10/16/20 08/01/21 [Probiotic] Magnesium Citrate 225mg/5ml 225 mg PO DAILY 10/16/20 08/01/21 Psyllium Husk [Metamucil] 0.4 gm PO DAILY 10/16/20 08/01/21 Pure [place] Hp-375 Epa/125 Dha 1 cap PO DAILY 10/16/20 08/01/21 Thyroid,Pork [Grady Thyroid] 90 mg PO SUTUWETHFRSA 10/16/20 08/01/21 Topiramate [Topamax] 50 mg PO BID 10/16/20 08/01/21 Vitamin A 3,000 Units 3,000 units PO DAILY 10/16/20 08/01/21 Zinc Citrate 30mg 30 mg PO DAILY 10/16/20 08/01/21 bisacodyL [Dulcolax] 5 mg PO DAILY 10/16/20 08/01/21 Ascorbic Acid [Vitamin C] 500 mg PO DAILY 08/01/21 08/01/21 Aspirin 81 mg PO DAILY 08/01/21 08/01/21 Escitalopram [Lexapro] 10 mg PO DAILY 08/01/21 08/01/21 Estradiol 10.5/Testosterone 0.15 0.125 tsp TOPICAL BID 08/01/21 08/01/21 Compound Cream Estradiol [Vagifem] 10 mcg VG MOWEFR 08/01/21 08/01/21 Ferrous Sulfate [Iron (65 MG 325 mg PO DAILY 08/01/21 08/01/21 Elemental)] Omeprazole Magnesium [PriLOSEC OTC] 40 mg PO DAILY 08/01/21 08/01/21 Progesterone,Micronized 140-Dh8mg 1 cap PO BID 08/01/21 08/01/21 Cap Thyroid,Pork [Grady Thyroid] 135 mg PO MO 08/01/21 08/01/21 Ticagrelor [Brilinta] 90 mg PO BID 08/01/21 08/01/21 Previous Rx's Medication Instructions Recorded Albuterol Sulfate [Ventolin HFA] 2 puff INHALATION RT-QID #1 inh 08/08/21 Dexamethasone [Decadron] 6 mg PO DAILY 3 Days #3 tablet 08/08/21 Allergies Allergy/AdvReac Type Severity Reaction Status Date / Time adhesive Allergy Rash/Hives Verified 10/24/21 14:39 Iodine and Iodide Containing Allergy Rash/Hives Verified 10/24/21 14:39 Produc meperidine [From Demerol] Allergy Rash/Hives Verified 10/24/21 14:39 NSAIDS (Non-Steroidal Allergy Unknown Verified 10/24/21 14:39 Anti-Inflamma Sulfa (Sulfonamide Allergy Rash/Hives Verified 10/24/21 14:39 Antibiotics) surgical glue Allergy blisters Uncoded 10/24/21 14:39 and rash Review of Systems ROS Statement: Those systems with pertinent positive or pertinent negative responses have been documented in the HPI. ROS Other: All systems not noted in ROS Statement are negative. Past Medical History Past Medical History: Cancer, Diabetes Mellitus, GERD/Reflux, Hyperlipidemia, Memory Impairment, Sleep Apnea/CPAP/BIPAP, Thyroid Disorder Additional Past Medical History / Comment(s): hx thyroid cancer, diet controlled pre=diabetes, has cpap machine, brain aneurysm, headaches due to aneurysm and memory impairment History of Any Multi-Drug Resistant Organisms: None Reported Past Surgical History: Bariatric Surgery, Bowel Resection, Hernia Repair, Hysterectomy Additional Past Surgical History / Comment(s): gastic sleeve, total thyroidectomy,hiatal hernia repair, vaginal repair, rectal vaginal fistula repair, laparoscopic surgery for endometriosis, brain aneurysm surgery on 07/23 Past Anesthesia/Blood Transfusion Reactions: Postoperative Nausea & Vomiting (PONV) Past Psychological History: No Psychological Hx Reported, Depression Smoking Status: Former smoker Past Alcohol Use History: Rare Past Drug Use History: None Reported - Past Family History Mother Family Medical History: No Reported History General Exam Limitations: no limitations General appearance: alert, in no apparent distress Head exam: Present: atraumatic, normocephalic, normal inspection Eye exam: Present: normal appearance, PERRL, EOMI. Absent: scleral icterus, conjunctival injection, periorbital swelling ENT exam: Present: normal exam, normal oropharynx, mucous membranes moist Neck exam: Present: normal inspection, full ROM. Absent: tenderness, meningismus, lymphadenopathy Respiratory exam: Present: normal lung sounds bilaterally. Absent: respiratory distress, wheezes, rales, rhonchi, stridor Cardiovascular Exam: Present: regular rate, normal rhythm, normal heart sounds. Absent: systolic murmur, diastolic murmur, rubs, gallop, clicks Extremities exam: Present: normal inspection, full ROM Neurological exam: Present: alert, oriented X3, CN II-XII intact, reflexes normal, other (Finger to nose intact bilaterally without overshooting). Absent: motor sensory deficit Course Vital Signs 10/24/21 10/24/21 14:39 15:41 Temperature 97.9 F Pulse Rate 75 69 Respiratory 18 18 Rate Blood Pressure 129/84 128/78 O2 Sat by Pulse 100 99 Oximetry Medical Decision Making - Medical Decision Making CT brain and CT angiogram unremarkable. Patient has acute migraine. Patient has no neurological deficits or be discharged in stable condition. - Lab Data Result diagrams: 10/24/21 15:21 10/24/21 15:21 Lab Results 10/24/21 10/24/21 Range/Units 15:21 15:21 WBC 6.2 (3.8-10.6) k/uL RBC 4.53 (3.80-5.40) m/uL Hgb 14.5 (11.4-16.0) gm/dL Hct 44.3 (34.0-46.0) % MCV 97.8 (80.0-100.0) fL MCH 31.9 (25.0-35.0) pg MCHC 32.7 (31.0-37.0) g/dL RDW 13.5 (11.5-15.5) % Plt Count 234 (150-450) k/uL MPV 6.9 Neutrophils % 57 % Lymphocytes % 34 % Monocytes % 4 % Eosinophils % 2 % Basophils % 1 % Neutrophils # 3.5 (1.3-7.7) k/uL Lymphocytes # 2.1 (1.0-4.8) k/uL Monocytes # 0.3 (0-1.0) k/uL Eosinophils # 0.1 (0-0.7) k/uL Basophils # 0.1 (0-0.2) k/uL Sodium 138 (137-145) mmol/L Potassium 4.6 (3.5-5.1) mmol/L Chloride 108 H (98-107) mmol/L Carbon Dioxide 18 L (22-30) mmol/L Anion Gap 12 mmol/L BUN 13 (7-17) mg/dL Creatinine 0.88 (0.52-1.04) mg/dL Est GFR (CKD-EPI)AfAm 86 (>60 ml/min/1.73 sqM) Est GFR (CKD-EPI)NonAf 75 (>60 ml/min/1.73 sqM) Glucose 90 (74-99) mg/dL Calcium 9.0 (8.4-10.2) mg/dL Total Bilirubin 0.8 (0.2-1.3) mg/dL AST 46 H (14-36) U/L ALT 27 (4-34) U/L Alkaline Phosphatase 103 (38-126) U/L Total Protein 7.9 (6.3-8.2) g/dL Albumin 4.9 (3.5-5.0) g/dL Disposition Clinical Impression: Migraine headache Disposition: HOME SELF-CARE Condition: Stable Instructions (If sedation given, give patient instructions): Acute Headache (ED) Additional Instructions: Please return to the Emergency Department if symptoms worsen or any other concerns. Is patient prescribed a controlled substance at d/c from ED?: No Referrals: Chantelle Navarrete DO [Primary Care Provider] - 1-2 days Time of Disposition: 17:30
--- NOTE | 2021-10-24 16:07 | CT ---
EXAMINATION TYPE: CT brain wo con DATE OF EXAM: 10/24/2021 COMPARISON: CT brain 08/01/2021 HISTORY: headache, hx of aneurysm CT DLP: 1067.4 mGycm Automated exposure control for dose reduction was used. Helical imaging through the brain. FINDINGS: Metallic coils present as on prior exam cause extensive streak artifact status post treatment for ane urysm. There is no hemorrhage or hydrocephalus evident. Brain density is maintained. The calvarium is intact. IMPRESSION: POSTPROCEDURAL CHANGES. NO ACUTE ABNORMALITIES EVIDENT.
[2021-10-24] MEDS ORDERED: methylPREDNISolone SOD SUCCI 125 MG/2 ML VIAL IV STA (16:15)
[2021-10-24] MEDS ORDERED: FAMOTIDINE 20 MG/2 ML VIAL IV STA (16:15)
--- NOTE | 2021-10-24 17:26 | CT ---
EXAMINATION TYPE: CT angio head DATE OF EXAM: 10/24/2021 COMPARISON: 07/19/2021 HISTORY: headache, hx of aneurysm CT DLP: 686.8 mGycm Automated exposure control for dose reduction was used. CONTRAST: Performed with IV Contrast, patient injected with 100 mL of Isovue 370. Images obtained from the skull base to the vertex of the brain with IV contrast and Three-D postproce ssed images. There is extensive metal artifact from aneurysm coils at the anterior left side of the [place] is. There is arterial flow in both distal vertebral arteries. There is arterial flow in the vertebrobasil ar artery system. There is arterial flow in both distal internal carotid arteries. There is arterial flow in both anterior cerebral arteries. There is arterial flow in both middle cerebral arteries. As best as one can tell there is no evidence of aneurysm or neovascularity. There is no mass effect. No evidence of hemodynamic stenosis. There is normal enhancement of the venous sinuses. 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 No other changes seen compared to previous preoperative CT angiogram of 07/19/2021.
[2021-10-24] MEDS ORDERED: ONDANSETRON 4 MG/2 ML VIAL IVP STA (17:31)
[2021-10-24] MEDS ORDERED: MORPHINE SULFATE 4 MG/ML SYRINGE IVP STA (17:31)
[2021-10-24 17:44] VITALS: BP 107/73; PULSE 78; RESP 16
== END 2021-10-24 17:44 | disposition home or self-care (01) ==
LOC: EC 14:24
DX: G43.909 Migraine, unspecified, not intractable, without status migrainosus (principal); E11.9 Type 2 diabetes mellitus without complications; K21.9 Gastro-esophageal reflux disease without esophagitis; E78.5 Hyperlipidemia, unspecified; E07.9 Disorder of thyroid, unspecified; Z79.82 Long term (current) use of aspirin; Z88.2 Allergy status to sulfonamides; Z85.850 Personal history of malignant neoplasm of thyroid; Z98.84 Bariatric surgery status; Z90.710 Acquired absence of both cervix and uterus; Z87.891 Personal history of nicotine dependence
CPT/HCPCS: 99284; 96374; 96375 ×5; 36415; 80053; 85025; 70496; 70450; J2270; J1200; J2765; J2930; J2405; Q9967

== ENCOUNTER 2023-01-17 17:13 | Emergency (ER) | payer BC ==
--- NOTE | 2023-01-17 18:00 | ED ---
Headache HPI - General Source: RN notes reviewed <Fina Martinez - Last Filed: 01/17/23 17:58> <Fiorella Brown - Last Filed: 01/18/23 04:00> - General Stated Complaint: Fell head injury Time Seen by Provider: 01/17/23 17:58 - History of Present Illness Initial Comments: Patient is a 37-year-old female presents to emergency department for head injury. Yesterday her dogs pulled her backwards causing her to hit her head on the ground. Patient does not know if she lost consciousness. She is not on blood thinners. She continues to have headache, lightheadedness, nausea. (Fina Martinez) Patient is a 57 female presenting with chief complaint of headache. Yesterday the patient was walking her dogs when they pulled her causing her to fall backwards and hitting her head. She is having a continued headache as well as nausea, lightheadedness, and light sensitivity. Patient does not think she lost consciousness. She denies any blood thinners. She was encouraged to come here by her neurologist. No numbness, tingling, weakness, vision or hearing changes, vomiting, chest pain, difficulty breathing. (Fiorella Brown) - Related Data Home Medications Medication Instructions Recorded Confirmed Cetirizine HCl [Zyrtec] 10 mg PO DAILY 05/06/18 08/01/21 Cevimeline HCl [Evoxac] 30 mg PO TID 05/06/18 08/01/21 Cholecalciferol [Vitamin D3 (25 25 mcg PO DAILY 05/06/18 08/01/21 Mcg = 1000 Iu)] Multivitamins, Thera [Multivitamin 1 tab PO DAILY 05/06/18 08/01/21 (formulary)] Cyanocobalamin (Vitamin B-12) 5,000 mcg PO DAILY 04/07/20 08/01/21 [Vitamin B-12] Black Elderberry 2,000mg 2,000 mg PO DAILY 10/16/20 08/01/21 Calcium/Magnesium/Vit D3 Complex 1 cap PO DAILY 10/16/20 08/01/21 Chromium Picolinate 200 mcg PO DAILY 10/16/20 08/01/21 Cranberry W/Vit C 1 tab PO DAILY 10/16/20 08/01/21 Inflamed (Curcumin Blend) 1 cap PO DAILY 10/16/20 08/01/21 L.acidoph,Paracasei, B.lactis 1 cap PO DAILY 10/16/20 08/01/21 [Probiotic] Magnesium Citrate 225mg/5ml 225 mg PO DAILY 10/16/20 08/01/21 Psyllium Husk [Metamucil] 0.4 gm PO DAILY 10/16/20 08/01/21 Pure Rosanky Hp-375 Epa/125 Dha 1 cap PO DAILY 10/16/20 08/01/21 Thyroid,Pork [[place] Thyroid] 90 mg PO SUTUWETHFRSA 10/16/20 08/01/21 Topiramate [Topamax] 50 mg PO BID 10/16/20 08/01/21 Vitamin A 3,000 Units 3,000 units PO DAILY 10/16/20 08/01/21 Zinc Citrate 30mg 30 mg PO DAILY 10/16/20 08/01/21 bisacodyL [Dulcolax] 5 mg PO DAILY 10/16/20 08/01/21 Ascorbic Acid [Vitamin C] 500 mg PO DAILY 08/01/21 08/01/21 Aspirin 81 mg PO DAILY 08/01/21 08/01/21 Escitalopram [Lexapro] 10 mg PO DAILY 08/01/21 08/01/21 Estradiol 10.5/Testosterone 0.15 0.125 tsp TOPICAL BID 08/01/21 08/01/21 Compound Cream Ferrous Sulfate [Iron (65 MG 325 mg PO DAILY 08/01/21 08/01/21 Elemental)] Omeprazole Magnesium [PriLOSEC OTC] 40 mg PO DAILY 08/01/21 08/01/21 Progesterone,Micronized 140-Dh8mg 1 cap PO BID 08/01/21 08/01/21 Cap Thyroid,Pork [[place] Thyroid] 135 mg PO MO 08/01/21 08/01/21 Ticagrelor [Brilinta] 90 mg PO BID 08/01/21 08/01/21 estradioL [Vagifem] 10 mcg VG MOWEFR 08/01/21 08/01/21 Previous Rx's Medication Instructions Recorded Albuterol Sulfate [Ventolin HFA] 2 puff INHALATION RT-QID #1 inh 08/08/21 dexAMETHasone [Decadron] 6 mg PO DAILY 3 Days #3 tablet 08/08/21 Allergies Allergy/AdvReac Type Severity Reaction Status Date / Time adhesive Allergy Rash/Hives Verified 01/17/23 17:58 Iodine and Iodide Containing Allergy Rash/Hives Verified 01/17/23 17:58 Produc meperidine [From Demerol] Allergy Rash/Hives Verified 01/17/23 17:58 NSAIDS (Non-Steroidal Allergy Unknown Verified 01/17/23 17:58 Anti-Inflamma Sulfa (Sulfonamide Allergy Rash/Hives Verified 01/17/23 17:58 Antibiotics) surgical glue Allergy blisters Uncoded 01/17/23 17:58 and rash Review of Systems ROS Other: All systems not noted in ROS Statement are negative. <Fina Martinez - Last Filed: 01/17/23 17:58> ROS Other: All systems not noted in ROS Statement are negative. <Fiorella Brown - Last Filed: 01/18/23 04:00> ROS Statement: Those systems with pertinent positive or pertinent negative responses have been documented in the HPI. Past Medical History Past Medical History: Cancer, Diabetes Mellitus, GERD/Reflux, Hyperlipidemia, Memory Impairment, Sleep Apnea/CPAP/BIPAP, Thyroid Disorder Additional Past Medical History / Comment(s): hx thyroid cancer, diet controlled pre=diabetes, has cpap machine, brain aneurysm, headaches due to aneurysm and memory impairment History of Any Multi-Drug Resistant Organisms: None Reported Past Surgical History: Bariatric Surgery, Bowel Resection, Hernia Repair, Hysterectomy Additional Past Surgical History / Comment(s): gastic sleeve, total thyroidectomy,hiatal hernia repair, vaginal repair, rectal vaginal fistula repair, laparoscopic surgery for endometriosis, brain aneurysm surgery on 07/23 Past Anesthesia/Blood Transfusion Reactions: Postoperative Nausea & Vomiting (PONV) Past Psychological History: No Psychological Hx Reported, Depression Smoking Status: Former smoker Past Alcohol Use History: Rare Past Drug Use History: None Reported - Past Family History Mother Family Medical History: No Reported History <Fina Martinez - Last Filed: 01/17/23 17:58> General Exam <Fina Martinez - Last Filed: 01/17/23 17:58> Limitations: no limitations General appearance: alert, in no apparent distress Head exam: Present: atraumatic, normocephalic, normal inspection Eye exam: Present: normal appearance, PERRL, EOMI. Absent: scleral icterus, periorbital swelling Pupils: Present: normal accommodation Neck exam: Present: normal inspection, full ROM Respiratory exam: Present: normal lung sounds bilaterally. Absent: respiratory distress, wheezes, rales, rhonchi, stridor Cardiovascular Exam: Present: regular rate, normal rhythm, normal heart sounds. Absent: systolic murmur, diastolic murmur, rubs, gallop, clicks Neurological exam: Present: alert, oriented X3, CN II-XII intact Expanded Patient oriented to: Present: person, place, time Speech: Present: fluid speech Cranial nerves: EOM's Intact: Normal Cerebellar function: Finger to Nose: Normal Motor strength exam: RUE: 5, LUE: 5, RLE: 5, LLE: 5 Eye Response: (4) open spontaneously Motor Response: (6) obeys commands Verbal Response: (5) oriented [place] Total: 15 Psychiatric exam: Present: normal affect, normal mood Skin exam: Present: warm, dry, intact, normal color. Absent: rash <Fiorella Brown - Last Filed: 01/18/23 04:00> - General Exam Comments Initial Comments: Visual Physical Exam Vital signs reviewed General: Well-appearing, nontoxic, no acute distress. Head: Normocephalic, atraumatic Eyes: PERRLA, EOMI ENT: Airway patent Chest: Nonlabored breathing Skin: No visual rash, normal skin tone Neuro: Alert and oriented 3 Musculoskeletal: No gross abnormalities (Michelle,Fina) Course Vital Signs 01/17/23 01/17/23 17:55 19:52 Temperature 98.2 F 97.8 F Pulse Rate 89 84 Respiratory 17 20 Rate Blood Pressure 129/84 125/68 O2 Sat by Pulse 97 97 Oximetry Medical Decision Making <Fiorella Brown - Last Filed: 01/18/23 04:00> - Medical Decision Making Was pt. sent in by a medical professional or institution (Dr. PA, [employer] OPERATOR, urgent care, hospital, or penitentiary...) When possible be specific @ -Patient was sent by her neurologist Did you speak to anyone other than the patient for history (EMS, parent, family, police, friend...)? What history was obtained from this source @ -No Did you review nursing and triage notes (agree or disagree)? Why? @ -I reviewed and agree with nursing and triage notes Were old charts reviewed (outside hosp., previous admission, EMS record, old EKG, old radiological studies, urgent care reports/EKG's, penitentiary records)? Report findings @ -No old charts were reviewed Differential Diagnosis (chest pain, altered mental status, abdominal pain women, abdominal pain men, vaginal bleeding, weakness, fever, dyspnea, syncope, headache, dizziness, GI bleed, back pain, seizure, CVA, palpatations, mental health, musculoskeletal)? @ -MDM Differential Headache: Migraine, tension, cluster, carbon monoxide, central venous thrombosis, pension karma temporal arteritis, acute closure glaucoma, intercranial hemorrhage, mastoiditis, sinusitis, head injury this is not meant to be an all-inclusive list. EKG interpreted by me (3pts min.). @ -As above X-rays interpreted by me (1pt min.). @ -None done CT interpreted by me (1pt min.). @ -Negative CT of the brain and cervical spine U/S interpreted by me (1pt. min.). @ -None done What testing was considered but not performed or refused? (CT, X-rays, U/S, labs)? Why? @ -None What meds were considered but not given or refused? Why? @ -None Did you discuss the management of the patient with other professionals (andrzej goodman i.lisa Bowden, PA, [employer] OPERATOR, lab, RT, psych nurse, high school social studies tutor, law professor, teacher, college service officer, disability case manager)? Give summary @ -No Was smoking cessation discussed for >3mins.? @ -No Was critical care preformed (if so, how long)? @ -No Were there social determinants of health that impacted care today? How? (Homelessness, low income, unemployed, alcoholism, drug addiction, transportation, low edu. Level, literacy, decrease access to med. care, half-way, rehab)? @ -No Was there de-escalation of care discussed even if they declined (Discuss DNR or withdrawal of care, Hospice)? DNR status @ -No What co-morbidities impacted this encounter? (DM, HTN, Smoking, COPD, CAD, Cancer, CVA, ARF, Chemo, Hep., AIDS, mental health diagnosis, sleep apnea, morbid obesity)? @ -None Was patient admitted / discharged? Hospital course, mention meds given and route, prescriptions, significant lab abnormalities, going to OR and other pertinent info. @ -Patient is a 57-year-old female presenting with chief complaint of headache, nausea, lightheadedness after head injury yesterday. No blood thinners. Patient does not think that she lost consciousness. On physical examination there are no focal neurological deficits and GCS is 15. Negative CT brain and cervical spine. Patient was educated on these findings. Educated on supportive management with concussion. Encouraged to follow up with her neurologist. Follow-up with PCP. Report back to ER with any new or worsening symptoms. Discussed return parameters and answered all questions. Patient conveyed verbal understanding and agreed to the plan. I discussed this case in detail with my attending Dr. Du Undiagnosed new problem with uncertain prognosis? @ -No Drug Therapy requiring intensive monitoring for toxicity (Heparin, Nitro, Insulin, Cardizem)? @ -No Were any procedures done? @ -No Diagnosis/symptom? @ -Head injury Acute, or Chronic, or Acute on Chronic? @ -Acute Uncomplicated (without systemic symptoms) or Complicated (systemic symptoms)? @ -Uncomplicated Side effects of treatment? @ -No Exacerbation, Progression, or Severe Exacerbation? @ -No Poses a threat to life or bodily function? How? (Chest pain, USA, IA, pneumonia, PE, COPD, DKA, ARF, appy, cholecystitis, CVA, Diverticulitis, Homicidal, Suicidal, threat to staff... and all critical care pts) @ -No (Fiorella Brown) Disposition <Fina Martinez - Last Filed: 01/17/23 17:58> Is patient prescribed a controlled substance at d/c from ED?: No Time of Disposition: 19:47 <Fiorella Brown - Last Filed: 01/18/23 04:00> Clinical Impression: Closed head injury Disposition: HOME SELF-CARE Condition: Good Instructions (If sedation given, give patient instructions): Concussion (ED), Post Concussion Syndrome in Children (ED) Additional Instructions: Follow-up with PCP and neurologist. Report back to ER with any new or worsening symptoms. . Referrals: Chantelle Navarrete DO [Primary Care Provider] - 1-2 days
--- NOTE | 2023-01-17 18:49 | CT ---
EXAMINATION TYPE: CT brain faustoine wo con DATE OF EXAM: 01/17/2023 COMPARISON: 10/16/2021 HISTORY: fell hitting back of head CT DLP: 1488.1 mGycm, Automated exposure control for dose reduction was used. CONTRAST: Patient injected with 0 mL of Isovue 300. CT of the brain is performed utilizing 3 mm thick sections through the posterior fossa and 3 mm thick sections through the remaining calvarium. Study is performed within 24 hours of arrival to the hospital. There is dense aneurysm coils causing significant beam hardening artifact near the skull base limitin g portions of the evaluation. No abnormal hyperdensity is present to suggest an acute intracranial hemorrhage. No mass lesion is evident. No acute infarcts are evident. Ventricles and sulci are appropriate for the patient age. Paranasal sinuses and mastoid air cells within the [id number] are clear. IMPRESSIONS: 1. No acute intracranial process. CT cervical spine. COMPARISON: None CT of the cervical spine is performed in the axial plane at 2 mm thick sections. Reconstructed image s in the coronal, and sagittal plane are reviewed on the computer. No acute fractures are evident. Vertebral body alignment is normal. Disc heights are preserved. Vertebral body heights are preserved. No spinal canal stenosis is evident. No neural foraminal stenosis is evident. IMPRESSIONS: 1. No acute osseous abnormality cervical spine
[2023-01-17 19:54] VITALS: BP 125/68; PULSE 84; RESP 20; TEMP 97.8
== END 2023-01-17 19:52 | disposition home or self-care (01) ==
LOC: EC 17:13
DX: S09.90XA Unspecified injury of head, initial encounter (principal); E11.9 Type 2 diabetes mellitus without complications; K21.9 Gastro-esophageal reflux disease without esophagitis; E07.9 Disorder of thyroid, unspecified; F32.A Depression, unspecified; Z79.82 Long term (current) use of aspirin; Z79.890 Hormone replacement therapy; Z79.899 Other long term (current) drug therapy; Z87.891 Personal history of nicotine dependence; Z88.2 Allergy status to sulfonamides; Z88.6 Allergy status to analgesic agent; Z88.8 Allergy status to other drugs, medicaments and biological substances; Z91.09 Other allergy status, other than to drugs and biological substances; W18.30XA Fall on same level, unspecified, initial encounter; Y93.K1 Activity, walking an animal
CPT/HCPCS: 70450; 72125; 99284